=== PATIENT | male | born 1960 | race Caucasian/White ===

== ENCOUNTER → 2016-12-06 | Outpatient (CLI) | payer BC ==
[~2016-12-06] MED LIST: ALBU1AER9 INH; ASPI81TA28 PO; GEMF600T3 PO; HMLI SC; IBUP-103 PO; INSDGI SC; INSDGIPEN SC; INSPMPHMLG SC; LISI5TAB PO; LISI5TAB3 PO; MONT1TAB3 PO; SNG10 PO; VNTHFA/IN INH
[2016-12-06 09:55] LABS: BLOOD UREA NITROGEN 14 mg/dl (7-18); BUN/CREATININE RATIO 13.8 (10-20); CALCIUM 8.6 mg/dl (8.5-10.1); CARBON DIOXIDE 25 mmol/L (21-32); CHLORIDE 105 mmol/L (98-107); CHOLESTEROL 152 mg/dl (0-200); GLUCOSE 165 mg/dl (70-99); POTASSIUM 3.8 mmol/L (3.5-5.1); SODIUM 140 mmol/L (136-145); TRIGLYCERIDES 349 mg/dl (0-150); VERY LOW DENSITY LIPOPROT CALC 70 mg/dl
[2016-12-06 09:56] LABS: ESTIMATED AVERAGE GLUCOSE 189 mg/dl; HA1C FLAG Normal (Normal)
[2016-12-06 10:05] LABS: CHOLESTEROL/HDL RATIO 5.4; HDL CHOLESTEROL 28 mg/dl; LDL CHOLESTEROL CALCULATED 54 mg/dl
[2016-12-06 12:04] LABS: URINE APPEARANCE CLEAR (CLEAR); URINE BILIRUBIN NEG (NEG); URINE COLOR YELLOW; URINE NITRITE NEG (NEG); URINE SPECIFIC GRAVITY 1.019 (1.000-1.030); UROBILINOGEN NEG (NEG)
[2016-12-06 12:13] LABS: MANUAL MICROSCOPIC REQUIRED? NO; REVIEW REQ? NO
== END | disposition home or self-care (01) ==
LOC: C.LAB 08:03
PROVIDERS: ATTEND Internal Medicine Pulmonary Disease
DX: Z00.00 Encounter for general adult medical examination without abnormal findings (principal); E11.9 Type 2 diabetes mellitus without complications; E78.5 Hyperlipidemia, unspecified; I10 Essential (primary) hypertension

== ENCOUNTER 2016-12-08 07:56 | Emergency (ER) | payer BC ==
[~2016-12-08] VITALS: Ht 182.9 cm; Wt 131.2 kg
[~2016-12-08 07:56] MED LIST changes: -INSDGIPEN SC; -INSPMPHMLG SC; -LISI5TAB PO; -MONT1TAB3 PO; -VNTHFA/IN INH
[2016-12-08 08:00] VITALS: Ht 182.9 cm; Wt 131.2 kg
[2016-12-08 08:10] VITALS: O2SAT 96
[2016-12-08] MEDS ORDERED: ONDANSETRON INJ 2 MG/ML 2 ML VIAL IV PRN (08:30)
--- NOTE | 2016-12-08 08:47 | EMERGENCY ROOM VISIT NOTE ---
History Report prepared by Karlie: Liliana Garcia Under the Supervision of: Dr. Yvon Pisano M.D. First contact with patient: 08:15 Chief Complaint: DIZZY Stated Complaint: DIZZY Nursing Triage Summary: Pt presents with c/o dizziness, generalized weakness and dry heeves. Pt belching while in triage. Reports pain 1/10 in upper chest and left shoulder "bad I have a bad left shoulder." Sx began about 0500 when pt woke to go to the bathroom "I felt unstable to walk and lightheaded." History of Present Illness The patient is a 56 year old male who presents to the Emergency Room with complaints of persistent dizziness that began around 0500 this morning. He currently rates his discomfort as a 1/10 in severity. The patient states that when he woke this morning he went to go to the bathroom and states that he felt unstable on his feet and dizzy. He additionally associates nausea, dry heaves, and increased belching. The patient states that his symptoms have been worsened with lying flat. He states that he notes chest pain secondary to his dry heaves. The patient's notes that the patient was diaphoretic this morning. He states that he typically has a normal heart rate. The patient states that he took Advil this morning for a sore shoulder. He states that he had an appointment with orthopedics today regarding his shoulder. The patient notes a history of diabetes and states that he previously did not follow closely with testing his levels. He states that after a bout of pancreatitis, he has now been checking his blood glucose levels more frequently. The patient states that he takes 70 of his insulin at night and 40 of HemoLog with each meal. He states that his blood glucose level was 190 mg/dL this morning. The patient denies any sick contacts or eating any abnormal foods. Source of History: patient Onset: 0500 this morning Position: other (global) Symptom Intensity: 1/10 Quality: other (dizziness) Timing: other (persistent) Modifying Factors (Worsening): other (lying flat) Associated Symptoms: + nausea Note: Associated Symptoms: left chest pain, dry heaves, increased belching Review of Systems All systems have been listed, reviewed, and are negative other than those previously mentioned. Please see Additional Medical History Sheet. Past Medical & Surgical Medical Problems: (1) Diabetes Surgical Problems: (1) S/P cholecystectomy Family History Diabetes mellitus Seizures Social History Smoking Status: Never Smoker Smokeless Tobacco Use: No Alcohol Use: occasionally Marital Status: Housing Status: lives with family Occupation Status: employed Current/Historical Medications Scheduled Aspirin (Aspirin Ec), 81 MG PO DAILY Gemfibrozil (Lopid), 600 MG PO BID Insulin Glargine (Lantus Solostar), 70 UNITS SC QPM Insulin Human Lispro (Humalog), 40 UNITS SC DAILY Lisinopril (Prinivil), 5 MG PO DAILY Montelukast Sodium (Singulair), 10 MG PO DAILY Scheduled PRN Albuterol Hfa (Ventolin Hfa), 2-4 PUFFS INH Q6H PRN for Shortness of Breath Ibuprofen Tab (Advil), 200-600 MG PO Q4H PRN for Pain or Fever Allergies Coded Allergies: Molds & Smuts (Verified Allergy, Unknown, ALLERGY SYMPTOMS, 12/08/16) Physical Exam Vital Signs Date Time Temp Pulse Resp B/P Pulse Ox O2 Delivery O2 Flow Rate FiO2 12/08/16 12:30 36.4 59 20 169/92 97 12/08/16 12:26 169/92 97 Room Air 12/08/16 12:23 59 20 97 12/08/16 12:18 57 31 99 12/08/16 12:13 59 23 100 12/08/16 12:11 57 12/08/16 12:08 60 15 99 12/08/16 12:03 58 18 98 12/08/16 11:58 56 16 152/100 99 12/08/16 11:53 58 14 99 12/08/16 11:51 156/82 12/08/16 11:50 149/91 12/08/16 11:49 61 24 164/85 100 Room Air 63 149/91 62 156/82 12/08/16 11:49 164/85 12/08/16 11:48 59 16 92 12/08/16 11:43 56 15 99 12/08/16 11:40 138/90 12/08/16 11:38 59 19 99 12/08/16 11:33 55 22 100 12/08/16 11:28 55 16 138/90 100 12/08/16 11:23 63 13 100 12/08/16 11:18 60 12 96 12/08/16 11:13 57 18 94 2/10/17 11:08 53 13 97 12/08/16 11:03 63 25 97 12/08/16 10:58 141/87 97 Room Air 12/08/16 10:38 59 17 97 12/08/16 10:33 61 20 98 12/08/16 10:28 131/69 12/08/16 09:33 53 16 95 12/08/16 09:28 122/60 12/08/16 09:26 51 19 96 12/08/16 08:58 134/72 12/08/16 08:56 54 18 12/08/16 08:44 54 16 122/87 96 Room Air 12/08/16 08:43 122/87 12/08/16 08:26 52 11 98 12/08/16 08:23 144/88 12/08/16 08:17 79 12/08/16 08:10 96 Room Air 12/08/16 08:00 36.4 52 18 177/95 97 Room Air Physical Exam GENERAL: Patient awake, alert, oriented x 3. Patient follows commands. Patient is pale and diaphoretic. Patient is adequately hydrated and well- nourished. SKIN: No erythema, pallor, cyanosis or rash HEENT: Normal head, pupils equal, reactive to light and accommodation. Neck: Without adenopathy, no neck vein distention. LUNGS: Clear to auscultation. No wheezes, no rales, no rhonchi. HEART: Slow rate, no murmur. ABDOMEN: Obese. No masses, no rebound, no hepatomegaly or splenomegaly. EXTREMITIES: No signs of trauma. No pedal or pretibial edema. No calf or thigh tenderness. NEUROLOGIC: Cranial nerves II-XII within normal limits. No gross motor sensory function deficits. Medical Decision & Procedures ER Provider Diagnostic Interpretation: X ray results are stated below per my interpretation and the radiologist's interpretation. CHEST ONE VIEW PORTABLE CLINICAL HISTORY: Nausea, dizziness. COMPARISON STUDY: 02/17/2015 FINDINGS: The heart is borderline enlarged. There is no failure. There is no lobar consolidation. There are no pleural effusions. Soft tissue prominence of the right paratracheal stripe, is felt to be secondary to slight rotation, the AP technique, and the patient's large body habitus.[ IMPRESSION: AP portable study. No evidence of acute parenchymal consolidation. No evidence of failure. Electronically signed by: Baldev Salcedo M.D. 12/08/2016 8:56 AM Dictated Date/Time: 12/08/2016 8:55 AM Laboratory Results 12/08/16 09:09 Red Blood Count 4.48, Mean Corpuscular Volume 80.4, Mean Corpuscular Hemoglobin 28.6, Mean Corpuscular Hemoglobin Concent 35.6, Mean Platelet Volume 9.4, Neutrophils (%) (Auto) 73.4, Lymphocytes (%) (Auto) 20.5, Monocytes (%) (Auto) 4.6, Eosinophils (%) (Auto) 1.1, Basophils (%) (Auto) 0.2, Neutrophils # (Auto) 3.37, Lymphocytes # (Auto) 0.94, Monocytes # (Auto) 0.21, Eosinophils # (Auto) 0.05, Basophils # (Auto) 0.01 12/08/16 08:45 Test 12/08/16 08:45 12/08/16 09:09 12/08/16 10:10 Prothrombin Time 10.9 SECONDS (9.0-12.0) Prothromb Time International Ratio 1.0 (0.9-1.1) Activated Partial Thromboplast Time 23.3 SECONDS (21.0-31.0) Partial Thromboplastin Ratio 0.9 Anion Gap 10.0 mmol/L (3-11) Est Creatinine Clear Calc Drug Dose 102.6 ml/min Estimated GFR () 85.3 Estimated GFR (Non- 73.6 BUN/Creatinine Ratio 13.9 (10-20) Calcium Level 8.1 mg/dl (8.5-10.1) Total Bilirubin 0.5 mg/dl (0.2-1) Aspartate Amino Transf (AST/SGOT) 30 U/L (15-37) Alanine Aminotransferase (ALT/SGPT) 45 U/L (12-78) Alkaline Phosphatase 75 U/L (45-117) Total Creatine Kinase 178 U/L (39-308) Creatine Kinase MB 2.6 ng/ml (0.5-3.6) Creatine Kinase MB Ratio 1.5 (0-3.0) Troponin I < 0.015 ng/ml (0-0.045) Total Protein 6.9 gm/dl (6.4-8.2) Albumin 3.6 gm/dl (3.4-5.0) Globulin 3.3 gm/dl (2.5-4.0) Albumin/Globulin Ratio 1.1 (0.9-2) Lipase 138 U/L (73-393) White Blood Count 4.59 K/uL (4.8-10.8) Red Blood Count 4.48 M/uL (4.7-6.1) Hemoglobin 12.8 g/dL (14.0-18.0) Hematocrit 36.0 % (42-52) Mean Corpuscular Volume 80.4 fL (80-100) Mean Corpuscular Hemoglobin 28.6 pg (25-34) Mean Corpuscular Hemoglobin Concent 35.6 g/dl (32-36) Platelet Count 116 K/uL (130-400) Mean Platelet Volume 9.4 fL (7.4-10.4) Neutrophils (%) (Auto) 73.4 % Lymphocytes (%) (Auto) 20.5 % Monocytes (%) (Auto) 4.6 % Eosinophils (%) (Auto) 1.1 % Basophils (%) (Auto) 0.2 % Neutrophils # (Auto) 3.37 K/uL (1.4-6.5) Lymphocytes # (Auto) 0.94 K/uL (1.2-3.4) Monocytes # (Auto) 0.21 K/uL (0.11-0.59) Eosinophils # (Auto) 0.05 K/uL (0-0.5) Basophils # (Auto) 0.01 K/uL (0-0.2) RDW Standard Deviation 41.1 fL (36.4-46.3) RDW Coefficient of Variation 14.1 % (11.5-14.5) Immature Granulocyte % (Auto) 0.2 % Immature Granulocyte # (Auto) 0.01 K/uL (0.00-0.02) Urine Color YELLOW Urine Appearance CLEAR (CLEAR) Urine pH 5.0 (4.5-7.5) Urine Specific [place] 1.035 (1.000-1.030) Urine Protein NEG (NEG) Urine Glucose (UA) 3+ (NEG) Urine Ketones 1+ (NEG) Urine Occult Blood NEG (NEG) Urine Nitrite NEG (NEG) Urine Bilirubin NEG (NEG) Urine Urobilinogen NEG (NEG) Urine Leukocyte Esterase NEG (NEG) Laboratory results as stated above per my review. Medications Administered Medications (Trade) Dose Ordered Sig/Jasmin Route Start Time Stop Time Status Last Admin Dose Admin Ondansetron HCl (Zofran Inj) 4 mg Q1HWA PRN IV 12/08/16 08:30 12/08/16 13:03 DC 12/08/16 08:42 4 MG ECG Indication: other (dizziness) Rate (beats per minute): 49 Rhythm: sinus bradycardia Findings: 1st degree AV block, T-wave inversion (lead 1, AVL, V5, V6) Comparison ECG Date: 09/22/13 Change: EKG Change: When compared to EKG done on 09/22/13, T wave inversions are new, rate is much slower, and GA interval is greater. ED Course 0816: Past medical records reviewed. The patient was evaluated in room B12B. A complete history and physical examination was performed. 0830: Ordered Zofran Inj 4 mg IV. 0942: I reevaluated the patient and he is resting comfortably. 1122: I reevaluated the patient and he is starting to feel better. He is starting to drink fluids at this time. I discussed the exam findings so far with him. 1225: I reevaluated the patient and he is doing well. I discussed all of the exam findings with him and I discussed the treatment plan. He verbalized complete understanding and agreement. He is ready to go home. Medical Decision Nurses notes reviewed. Medical history sheet reviewed. Differential diagnosis includes but is not limited to: sinus bradycardia, myocardial infraction, metabolic disorder, hyperglycemia. Multiple labs, EKG and imaging were obtained. Please see above. Patient's blood sugar is elevated. The patient has not yet taken his insulin today. Patient was able to take oral fluids. The patient felt significantly better and was felt safe to return home. I believe he has a viral cause for his symptoms. Impression Primary Impression: Bradycardia Additional Impressions: Viral illness Diabetes mellitus out of control Scribe Attestation The scribe's documentation has been prepared under my direction and personally reviewed by me in its entirety. I confirm that the note above accurately reflects all work, treatment, procedures, and medical decision making performed by me. Departure Information Dispostion Home / Self-Care Referrals Escobedo,José Antonio C. D.O. Pulmonary (PCP) Forms HOME CARE DOCUMENTATION FORM, IMPORTANT VISIT INFORMATION Patient Instructions My [employer] Additional Instructions REST Drink extra fluids. Follow-up with the family physician within the next 3-4 days. Return here sooner if your symptoms worsen. Problem Qualifiers
--- NOTE | 2016-12-08 08:57 | DIAGNOSTIC IMAGING REPORT ---
CHEST ONE VIEW PORTABLE CLINICAL HISTORY: Nausea, dizziness. COMPARISON STUDY: 02/17/2015 FINDINGS: The heart is borderline enlarged. There is no failure. There is no lobar consolidation. There are no pleural effusions. Soft tissue prominence of the right paratracheal stripe, is felt to be secondary to slight rotation, the AP technique, and the patient's large body habitus.[ IMPRESSION: AP portable study. No evidence of acute parenchymal consolidation. No evidence of failure. Electronically signed by: Baldev Salcedo M.D. 12/08/2016 8:56 AM Dictated Date/Time: 12/08/2016 8:55 AM
[2016-12-08 09:08] LABS: PARTIAL THROMBOPLASTIN RATIO 0.9; PROTHROMBIN TIME (PATIENT) 10.9 SECONDS (9.0-12.0)
[2016-12-08 09:09] LABS: BUN/CREATININE RATIO 13.9 (10-20); CALCIUM 8.1 mg/dl (8.5-10.1); CREATININE 1.1 mg/dl (0.60-1.40); POTASSIUM 3.7 mmol/L (3.5-5.1)
[2016-12-08 09:13] LABS: ALB/GLOB RATIO 1.1 (0.9-2); CKMB/CK RATIO 1.5 (0-3.0)
[2016-12-08 09:17] LABS: BASO % 0.2 %; BASO ABS # 0.01 K/uL (0-0.2); COMPLETE YES; EOS % 1.1 %; IG% 0.2 %; LYMPH % 20.5 %; LYMPH ABS # 0.94 K/uL (1.2-3.4); MEAN CELL VOLUME 80.4 fL (80-100); MEAN CORPUSCULAR HEMOGLOBIN 28.6 pg (25-34); MEAN CORPUSCULAR HGB CONC 35.6 g/dl (32-36); MEAN PLATELET VOLUME 9.4 fL (7.4-10.4); MONO % 4.6 %; NEUT % 73.4 %; PLATELET COUNT 116 K/uL (130-400); RED BLOOD COUNT 4.48 M/uL (4.7-6.1); WHITE BLOOD COUNT 4.59 K/uL (4.8-10.8)
[2016-12-08] MEDS ORDERED: INSPMPHMLG SC (09:23)
[2016-12-08] MEDS ORDERED: INSDGIPEN SC (09:23)
[2016-12-08] MEDS ORDERED: MONT1TAB3 PO (09:23)
[2016-12-08] MEDS ORDERED: LISI5TAB PO (09:23)
[2016-12-08] MEDS ORDERED: VNTHFA/IN INH (09:23)
[2016-12-08 11:54] LABS: MANUAL MICROSCOPIC REQUIRED? NO; REVIEW REQ? NO; URINE COLOR YELLOW; ZZUR CULT IF INDIC CLEAN CATCH NO
[2016-12-08 11:55] LABS: URINE APPEARANCE CLEAR (CLEAR); URINE BILIRUBIN NEG (NEG); URINE NITRITE NEG (NEG); URINE SPECIFIC GRAVITY 1.035 (1.000-1.030); UROBILINOGEN NEG (NEG)
[2016-12-08 12:30] VITALS: BP 169/92; PULSE 59; TEMP 36.4; O2SAT 97
== END 2016-12-08 12:30 | disposition home or self-care (01) ==
LOC: C.EDB 07:57
DX: R00.1 Bradycardia, unspecified (principal); B34.9 Viral infection, unspecified; E11.65 Type 2 diabetes mellitus with hyperglycemia; Z79.899 Other long term (current) drug therapy; Z79.84 Long term (current) use of oral hypoglycemic drugs; Z79.82 Long term (current) use of aspirin; Z83.3 Family history of diabetes mellitus

== ENCOUNTER → 2017-04-23 | Outpatient (CLI) | payer BC ==
[~2017-04-23] MED LIST changes: -ALBU1AER9 INH; -HMLI SC; -INSDGI SC; +INSDGIPEN SC; +INSPMPHMLG SC; +LISI5TAB PO; -LISI5TAB3 PO; +MONT1TAB3 PO; -SNG10 PO; +VNTHFA/IN INH
[2017-04-23 17:34] LABS: RATIO 38.6 mcg/mg (0-30.0)
[2017-04-24 06:15] LABS: ESTIMATED AVERAGE GLUCOSE 126 mg/dl; HA1C FLAG Normal (Normal)
== END | disposition home or self-care (01) ==
LOC: C.LAB 15:48
PROVIDERS: ATTEND Nurse Practitioner Family
DX: E11.49 Type 2 diabetes mellitus with other diabetic neurological complication (principal)

== ENCOUNTER → 2017-07-26 | Outpatient (CLI) | payer BC ==
[2017-07-26 12:16] LABS: ESTIMATED AVERAGE GLUCOSE 128 mg/dl; HA1C FLAG Normal (Normal)
[2017-07-26 12:31] LABS: BLOOD UREA NITROGEN 17 mg/dl (7-18); BUN/CREATININE RATIO 15.8 (10-20); CALCIUM 9.6 mg/dl (8.5-10.1); CARBON DIOXIDE 25 mmol/L (21-32); CHLORIDE 105 mmol/L (98-107); GLUCOSE 130 mg/dl (70-99); SODIUM 139 mmol/L (136-145)
[2017-07-26 12:56] LABS: RATIO 27.3 mcg/mg (0-30.0)
== END | disposition home or self-care (01) ==
LOC: C.LAB 09:36
PROVIDERS: ATTEND Nurse Practitioner Family
DX: I10 Essential (primary) hypertension (principal); E78.5 Hyperlipidemia, unspecified; E11.49 Type 2 diabetes mellitus with other diabetic neurological complication; E66.9 Obesity, unspecified

== ENCOUNTER → 2017-10-08 | Outpatient (CLI) | payer BC ==
--- NOTE | 2017-10-08 13:31 | DIAGNOSTIC IMAGING REPORT ---
ABDOMEN FOR HERNIA CLINICAL HISTORY: Right groin pain. Evaluate for hernia. COMPARISON STUDY: CT of the abdomen and pelvis September 22, 2013. FINDINGS: Note is made of a reducible fat-containing right inguinal hernia. The defect measures approximately 1.2 cm in transverse dimension. IMPRESSION: Reducible fat-containing right inguinal hernia. Electronically signed by: Daron Radford M.D. 10/08/2017 1:29 PM Dictated Date/Time: 10/08/2017 1:28 PM
== END | disposition home or self-care (01) ==
LOC: C.ULTR 12:46
PROVIDERS: ATTEND Internal Medicine
DX: R10.31 Right lower quadrant pain (principal)

== ENCOUNTER → 2017-10-26 | Outpatient (CLI) | payer BC ==
[~2017-10-26] MED LIST changes: -GEMF600T3 PO; +GEMF600T5 PO
[2017-10-26 16:15] LABS: BASO % 0.2 %; BASO ABS # 0.01 K/uL (0-0.2); EOS ABS # 0.16 K/uL (0-0.5); HEMATOCRIT 39.5 % (42-52); HEMOGLOBIN 13.9 g/dL (14.0-18.0); IG# 0.01 K/uL (0.00-0.02); LYMPH % 21.3 %; LYMPH ABS # 1.15 K/uL (1.2-3.4); MEAN CELL VOLUME 80.9 fL (80-100); MEAN CORPUSCULAR HEMOGLOBIN 28.5 pg (25-34); MEAN CORPUSCULAR HGB CONC 35.2 g/dl (32-36); MEAN PLATELET VOLUME 9.6 fL (7.4-10.4); MONO % 6.3 %; MONO ABS # 0.34 K/uL (0.11-0.59); NEUT ABS # 3.74 K/uL (1.4-6.5); PLATELET COUNT 168 K/uL (130-400); RED CELL DISTRIBUTION WIDTH CV 14.9 % (11.5-14.5); RED CELL DISTRIBUTION WIDTH SD 43.1 fL (36.4-46.3); WHITE BLOOD COUNT 5.41 K/uL (4.8-10.8)
[2017-10-26 17:33] LABS: HEP C IGG 13 YRS+OLDER_RFLX NEG (NEG)
[2017-10-27 07:41] LABS: HEMOGLOBIN A1C 6.2 % (4.5-5.6)
== END | disposition home or self-care (01) ==
LOC: C.LAB 14:54
PROVIDERS: ATTEND Nurse Practitioner Family
DX: E11.49 Type 2 diabetes mellitus with other diabetic neurological complication (principal); J06.9 Acute upper respiratory infection, unspecified; Z11.59 Encounter for screening for other viral diseases

== ENCOUNTER → 2018-01-25 | Outpatient (CLI) | payer BC ==
[~2018-01-25] MED LIST changes: +GEMF600T3 PO; -GEMF600T5 PO
[2018-01-25 10:34] LABS: BLOOD UREA NITROGEN 19 mg/dl (7-18); CARBON DIOXIDE 26 mmol/L (21-32); CHOLESTEROL 139 mg/dl (0-200); CREATININE 1.21 mg/dl (0.60-1.40); GLUCOSE 182 mg/dl (70-99); SODIUM 135 mmol/L (136-145)
[2018-01-25 10:39] LABS: HEMOGLOBIN A1C 6.4 % (4.5-5.6)
[2018-01-25 10:44] LABS: LDL CHOLESTEROL CALCULATED 72 mg/dl
== END | disposition home or self-care (01) ==
LOC: C.LAB 08:50
PROVIDERS: ATTEND Nurse Practitioner Family
DX: E11.49 Type 2 diabetes mellitus with other diabetic neurological complication (principal)

== ENCOUNTER 2021-06-13 14:08 | Observation (INO) ==
[2021-06-13] MEDS ORDERED: ALBUT/IPRATROP 3MG/0.5MG NEB 3 ML VIAL NEB STA (15:21)
--- NOTE | 2021-06-13 15:30 | Emergency Department Note ---
Impression & Plan Community acquired pneumonia, Breathlessness, Chest pain ED Provider Note Provider: Kishan Bennett MD DATE OF SERVICE: 06/13/2021 CHIEF COMPLAINT: Short of breath, chest pain HISTORY OF PRESENT ILLNESS: Patient is a 61-year-old gentleman history of type 2 diabetes, GERD, asthma, hypertension, hypothyroid, and recent travel to [facility] presenting here today complaining of shortness of breath and cough over the past approximately 2 weeks. Was seen due to similar complaint in [place] several weeks ago. Given inhaler and steroid burst and doxycycline. States that he had some brief improvement by the time he got to [place] on the way home. States he did get some diarrhea from the doxycycline. Was doing fairly well in [place] but time he got home here and is having worsening shortness of breath. Today experience some significant [id number] chest pain also some hemoptysis. Has been coughing somewhat hard. Had some leg swelling predominantly in the left last night lites improved today. Given this discussed with his and they came here for evaluation. Did see the outpatient office and is on a steroid taper as well as completed azithromycin. Utilized some ibuprofen and nebulizer at home and chest pain has resolved and is very minimal now. Denies any abdominal pain or nausea or vomiting. Patient states he has been vaccinated for Covid and tested negative for Covid in [place] about 2 weeks ago. REVIEW OF SYSTEMS: A total of 10 review of systems was obtained and negative except as stated above in the HPI. PAST MEDICAL HISTORY: As noted above MEDICATIONS: Reviewed home medications SOCIAL HISTORY: , non-smoker PHYSICAL EXAM: GENERAL: alert and oriented in no acute distress on stretcher Head: normocephalic and atraumatic EYES: No injection, discharge or icterus. NECK: Trachea midline. ENT: Mucous membranes pink and moist. LUNGS: Airway patent. No retractions. Breath sounds clear HEART: Regular rate and rhythm. No chest wall tenderness ABDOMEN: Soft and non-tender, without guarding or rebound. SKIN: Acyanotic, warm, dry with a few scattered abrasions on the lower shins. EXTREMITIES: Without significant tenderness with trace bilateral pedal edema. NEUROLOGICAL: No focal deficits. No aphasia. No facial droop or slurred speech. Ambulatory. EK bpm sinus rhythm first-degree AV block. Left axis is noted with occasional PAC. No acute ST segment elevation is noted with some nonspecific lateral T wave changes noted in comparison to previous from December [id number] lateral T wave inversions are somewhat improved today. PACs today. EKG #2: 52 bpm sinus bradycardia with sinus arrhythmia first-degree AV block. No acute ST segment elevation or depression noted with some Q inversion in V6. QTC 412 CONTINUOUS CARDIAC MONITORING: was ordered and showed a heart rate of 50s to 80s bpm in normal sinus rhythm and sinus bradycardia Patient's laboratory studies and imaging reviewed. Differential includes Reactive airway disease, pneumonia, pneumothorax, COPD, CHF, infections, cardiac ischemia, pulmonary embolism, musculoskeletal, gastrointestinal, as well as other pathologies. IMPRESSION/MEDICAL DECISION MAKING: Patient presents with persistent shortness of breath now bit of worsening cough some left-sided chest discomfort and question of some leg swelling last night. Recent travel. Covid vaccinated however Covid test was sent; negative. CT of the chest to exclude intrathoracic pathology is PE or pneumonia sent. Given DuoNeb here. EKG obtained and not significantly different than previous. Troponin was sent to help exclude ACS however. Patient not hypoxic here. Denies abdominal symptoms of benign abdomen. Has been on several doses of antibiotics including azithromycin/doxycycline as well as steroids. Just recently stopped lisinopril. Given some leg swelling ultrasound the leg will be obtained. Per radiology venous Dopplers negative for DVT. Chest x-ray questions a left perihilar consolidation and a CT scan of the chest was completed again to exclude occult pneumonia or PE. Negative for PE. Evidence of a left upper lobe consolidation concerning for pneumonia is noted. Patient is a leukocytosis of 13.8 today. Troponin is detectable and abnormal. Patient had some recurrence of his chest discomfort given some fentanyl. Question if the chest discomfort is more related to the consolidative findings on the CT with a lower suspicion for acute ACS. Discussed with patient findings and discussed with him cannot positively exclude underlying possible nodule or mass. Patient recently completed course of doxycycline and azithromycin. Given a dose of Rocephin here for more typical pneumonia coverage. Given his comorbidities and the fact has been on azithromycin and doxycycline and has a consolidation with a fair amount of pain, feel that further care at the hospital at this time would be warranted. Discussed with him and his . Repeat EKG was ordered and given a small amount of Toradol and Dilaudid to help with some left-sided chest discomfort. EKG without acute ischemic changes compared to previous. Hospitalist contacted. DIAGNOSIS: left upper lobe pneumonia, shortness of breath, chest pain DISPOSITION: Hospitalist will evaluate Patient was agreeable with this plan. Past Med/Surg History Medical History (Updated 06/13/21 @ 17:55 by Kishan Bennett M.D.) Asthma Asthmatic bronchitis Claustrophobia Diabetes Diabetic peripheral neuropathy associated with type 2 diabetes mellitus Dysesthesia Dyslipidemia GERD (gastroesophageal reflux disease) UNDER CONTROL History of right inguinal hernia Hypertension Hypothyroidism Not immune to hepatitis B virus Obesity, morbid, BMI 40.0-49.9 Pancreatitis Sleep apnea CPAP HS Type 2 diabetes mellitus, with long-term current use of insulin Vitamin D insufficiency Surgical History History of colonoscopy History of esophagogastroduodenoscopy (EGD) History of tonsillectomy Numbness and tingling in right hand HX-POST OP WITH HERNIA SURGERY 04/2018 AT [facility] [place] DIAGNOSED A RESULT PRESSURE ON NERVE TO HAND INTRAOP PER PT-FULL SENSATION HAS RETURNED S/P hernia repair S/P tooth extraction Status post laparoscopic cholecystectomy Family History Grandmother Cardiac disorder Mother Stroke Father Diabetes Cancer Social History Smoking Status: Never smoker Second Hand Exposure: No; Hx Alcohol Use: Yes Alcohol type: beer, wine and hard liquor Hx Substance Use: No Preferred Language: Lebanese Communication Ability: Effective Visual Impairment: No Limitations Hearing Ability: Normal Acid Washer Operator Required: No Beliefs That Will Affect Care: None marital status: Current Living Situation: Spouse current occupational status: employed Feels Safe at Home: Yes Assistive Devices: Glasses Allergies Allergies Allergy/AdvReac Type Severity Reaction Status Date / Time mold Allergy Unknown ALLERGY Verified 06/13/21 18:20 SYMPTOMS No Known Drug Allergies Allergy Verified 06/13/21 18:20 Home Meds Home Medications Medication Instructions Recorded Confirmed aspirin 81 mg tablet,delayed 81 mg PO QAM 02/22/19 06/13/21 release famotidine 40 mg tablet 40 mg PO DAILY 06/13/21 06/13/21 magnesium oxide 500 mg tablet 500 mg PO DAILY 06/13/21 06/13/21 Previous Rx's Medication Instructions Recorded insulin lispro 100 unit/mL See Rx Instructions SUBCUT TIDM 07/30/20 subcutaneous pen (Humalog KwikPen #135 ml (U-100) Insulin) montelukast 10 mg tablet 10 mg PO QAM #90 tab 11/04/20 (Singulair) albuterol sulfate 90 mcg/actuation 2 puff INHALATION .COMPLEX #18 g 12/13/20 aerosol inhaler insulin glargine U-300 conc 300 95 unit SUBCUT QAM #31.5 ml 12/24/20 unit/mL (1.5 mL) subcutaneous pen (Toujeo SoloStar U-300 Insulin) cholecalciferol (vitamin D3) 125 125 mcg PO DAILY #30 cap 04/28/21 mcg (5,000 unit) capsule losartan 50 mg tablet 50 mg PO DAILY #30 tab 04/28/21 gemfibrozil 600 mg tablet 600 mg PO BID #180 tab 06/06/21 albuterol sulfate 2.5 mg INHALATION QID PRN #75 ml 06/09/21 methylprednisolone 4 mg tablets in See Rx Instructions .ROUTE 06/09/21 a dose pack (Medrol (Dale)) .COMPLEX #21 ea Results & Data (ED) Vital Signs Vital Signs - 24 hr 06/13/21 14:08 06/13/21 14:13 06/13/21 14:57 Temperature 36.5 C Temperature Source Temporal Artery Scan Pulse Rate 71 67 Pulse Rate [Apical] Pulse Rate from SpO2 Sensor 67 Pulse Rhythm [Apical] Pulse Strength [Apical] Respiratory Rate 25 H 20 Respiratory Effort / Characteristics Non-Labored Spontaneous Respiratory Depth Normal Respiratory Pattern Regular Blood Pressure 181/99 H Blood Pressure [Right Arm] Blood Pressure Mean 126 Blood Pressure Mean [Right Arm] Blood Pressure Position Sitting Blood Pressure Position [Right Arm] Pulse Oximetry 96 94 98 Oxygen Delivery Method Room Air Room Air Sepsis Recent Fever Within 48 Hours No Sepsis New/Unexplained Change in Mental Status N/A Sepsis Action Taken by Nursing No Action Required 06/13/21 15:00 06/13/21 15:10 06/13/21 15:20 Temperature Temperature Source Pulse Rate 67 72 62 Pulse Rate [Apical] Pulse Rate from SpO2 Sensor 66 69 68 Pulse Rhythm [Apical] Pulse Strength [Apical] Respiratory Rate 18 15 19 Respiratory Effort / Characteristics Respiratory Depth Respiratory Pattern Blood Pressure Blood Pressure [Right Arm] Blood Pressure Mean Blood Pressure Mean [Right Arm] Blood Pressure Position Blood Pressure Position [Right Arm] Pulse Oximetry 97 96 98 Oxygen Delivery Method Sepsis Recent Fever Within 48 Hours Sepsis New/Unexplained Change in Mental Status Sepsis Action Taken by Nursing 06/13/21 15:30 06/13/21 15:40 06/13/21 15:49 Temperature Temperature Source Pulse Rate 54 L 72 Pulse Rate [Apical] 62 Pulse Rate from SpO2 Sensor 67 Pulse Rhythm [Apical] Pulse Strength [Apical] Respiratory Rate 19 14 18 Respiratory Effort / Characteristics Non-Labored Spontaneous Respiratory Depth Respiratory Pattern Blood Pressure Blood Pressure [Right Arm] Blood Pressure Mean Blood Pressure Mean [Right Arm] Blood Pressure Position Blood Pressure Position [Right Arm] Pulse Oximetry 97 97 Oxygen Delivery Method Room Air Sepsis Recent Fever Within 48 Hours Sepsis New/Unexplained Change in Mental Status Sepsis Action Taken by Nursing 06/13/21 15:50 06/13/21 16:00 06/13/21 16:10 Temperature Temperature Source Pulse Rate 66 72 77 Pulse Rate [Apical] Pulse Rate from SpO2 Sensor 72 68 Pulse Rhythm [Apical] Pulse Strength [Apical] Respiratory Rate 12 13 12 Respiratory Effort / Characteristics Respiratory Depth Respiratory Pattern Blood Pressure Blood Pressure [Right Arm] Blood Pressure Mean Blood Pressure Mean [Right Arm] Blood Pressure Position Blood Pressure Position [Right Arm] Pulse Oximetry 97 96 Oxygen Delivery Method Sepsis Recent Fever Within 48 Hours Sepsis New/Unexplained Change in Mental Status Sepsis Action Taken by Nursing 06/13/21 16:52 06/13/21 18:20 Temperature Temperature Source Pulse Rate 69 Pulse Rate [Apical] 71 Pulse Rate from SpO2 Sensor 63 68 Pulse Rhythm [Apical] Regular Pulse Strength [Apical] Normal Respiratory Rate 21 Respiratory Effort / Characteristics Non-Labored Respiratory Depth Normal Respiratory Pattern Blood Pressure 176/92 H 147/90 H Blood Pressure [Right Arm] 147/90 H Blood Pressure Mean 120 109 Blood Pressure Mean [Right Arm] 109 Blood Pressure Position Blood Pressure Position [Right Arm] Sitting Pulse Oximetry 99 97 Oxygen Delivery Method Room Air Sepsis Recent Fever Within 48 Hours Sepsis New/Unexplained Change in Mental Status Sepsis Action Taken by Nursing Laboratory Data Result diagrams: 06/13/21 15:48 06/13/21 15:48 Lab Results 06/13/21 06/13/21 06/13/21 Range/Units 15:41 15:41 15:48 WBC 13.86 H (4.8-10.8) K/uL RBC 4.80 (4.7-6.1) M/uL Hgb 13.7 L (14.0-18.0) g/dL Hct 40.3 L (42-52) % MCV 84.0 (80-100) fL MCH 28.5 (25-34) pg MCHC 34.0 (32-36) g/dL RDW Std Deviation 42.5 (36.4-46.3) fL RDW Coeff of James 13.8 (11.5-14.5) % Plt Count 204 (130-400) K/uL MPV 10.0 (7.4-10.4) fL Immature Gran % (Auto) 0.3 % Neut % (Auto) 85.2 % Lymph % (Auto) 7.1 % [place] % (Auto) 6.9 % Eos % (Auto) 0.4 % Baso % (Auto) 0.1 % Neut # (Auto) 11.82 H (1.4-6.5) K/uL Lymph # (Auto) 0.99 L (1.2-3.4) K/uL [place] # (Auto) 0.95 H (0.11-0.59) K/uL Eos # (Auto) 0.05 (0-0.5) K/uL Baso # (Auto) 0.01 (0-0.2) K/uL Immature Gran # (Auto) 0.04 H (0.00-0.02) K/uL PT (9.0-12.0) Seconds INR (0.9-1.1) Sodium (136-145) mmol/L Potassium (3.5-5.1) mmol/L Chloride (98-107) mmol/L Carbon Dioxide (21-32) mmol/L Anion Gap (3-11) BUN (7-18) mg/dl Creatinine (0.6-1.4) mg/dl Est Cr Clr Drug Dosing ml/min Est GFR ( Amer) ml/min Est GFR (Non-Af Amer) ml/min BUN/Creatinine Ratio (10-20) Glucose (70-99) mg/dl Calcium (8.5-10.1) mg/dl Magnesium (1.8-2.4) mg/dl Total Bilirubin (0.2-1) mg/dl AST (15-37) U/L ALT (12-78) U/L Alkaline Phosphatase (45-117) U/L Troponin I (0-0.045) ng/ml Total Protein (6.4-8.2) gm/dl Albumin (3.4-5.0) gm/dl Globulin (2.5-4.0) gm/dl Albumin/Globulin Ratio (0.9-2) Urine Color Urine Appearance (Clear) Urine pH (4.5-7.5) Ur Specific [place] (1.000-1.030) Urine Protein (Negative) Urine Glucose (UA) (Negative) Urine Ketones (Negative) Urine Blood (Negative) Urine Nitrite (Negative) Urine Bilirubin (Negative) Urine Urobilinogen (Negative) Ur Leukocyte Esterase (Negative) Urine WBC (Auto) (0-5) /hpf Urine RBC (Auto) (0-4) /hpf U Hyaline Cast (Auto) (0-5) /lpf U Epithel Cells (Auto) (0-5) /lpf Urine Bacteria (Auto) (Negative) Ur Renal Epithelial Cell Urine Mucus (None Prsent) COVID-19 Eval Order Covid19 at [facility] SARS-CoV-2 (PCR) NEGATIVE (Negative) 06/13/21 06/13/21 06/13/21 Range/Units 15:48 15:48 17:16 WBC (4.8-10.8) K/uL RBC (4.7-6.1) M/uL Hgb (14.0-18.0) g/dL Hct (42-52) % MCV (80-100) fL MCH (25-34) pg MCHC (32-36) g/dL RDW Std Deviation (36.4-46.3) fL RDW Coeff of James (11.5-14.5) % Plt Count (130-400) K/uL MPV (7.4-10.4) fL Immature Gran % (Auto) % Neut % (Auto) % Lymph % (Auto) % [place] % (Auto) % Eos % (Auto) % Baso % (Auto) % Neut # (Auto) (1.4-6.5) K/uL Lymph # (Auto) (1.2-3.4) K/uL [place] # (Auto) (0.11-0.59) K/uL Eos # (Auto) (0-0.5) K/uL Baso # (Auto) (0-0.2) K/uL Immature Gran # (Auto) (0.00-0.02) K/uL PT 10.3 (9.0-12.0) Seconds INR 1.0 (0.9-1.1) Sodium 137 (136-145) mmol/L Potassium 3.7 (3.5-5.1) mmol/L Chloride 105 (98-107) mmol/L Carbon Dioxide 25 (21-32) mmol/L Anion Gap 7.0 (3-11) BUN 16 (7-18) mg/dl Creatinine 0.87 (0.6-1.4) mg/dl Est Cr Clr Drug Dosing 128.9 ml/min Est GFR ( Amer) 106.5 ml/min Est GFR (Non-Af Amer) 91.9 ml/min BUN/Creatinine Ratio 17.8 (10-20) Glucose 205 H (70-99) mg/dl Calcium 9.0 (8.5-10.1) mg/dl Magnesium 2.0 (1.8-2.4) mg/dl Total Bilirubin 0.7 (0.2-1) mg/dl AST 14 L (15-37) U/L ALT 51 (12-78) U/L Alkaline Phosphatase 82 (45-117) U/L Troponin I 0.027 (0-0.045) ng/ml Total Protein 6.9 (6.4-8.2) gm/dl Albumin 3.4 (3.4-5.0) gm/dl Globulin 3.5 (2.5-4.0) gm/dl Albumin/Globulin Ratio 1.0 (0.9-2) Urine Color Yellow Urine Appearance Clear (Clear) Urine pH 6.0 (4.5-7.5) Ur Specific [place] 1.040 H (1.000-1.030) Urine Protein 2+ H (Negative) Urine Glucose (UA) Trace H (Negative) Urine Ketones Trace H (Negative) Urine Blood Negative (Negative) Urine Nitrite Negative (Negative) Urine Bilirubin Negative (Negative) Urine Urobilinogen Negative (Negative) Ur Leukocyte Esterase Negative (Negative) Urine WBC (Auto) 1-5 (0-5) /hpf Urine RBC (Auto) 0-4 (0-4) /hpf U Hyaline Cast (Auto) 1-5 (0-5) /lpf U Epithel Cells (Auto) >30 H (0-5) /lpf Urine Bacteria (Auto) Negative (Negative) Ur Renal Epithelial Cell Not Reportable Urine Mucus Present A (None Prsent) COVID-19 Eval Order SARS-CoV-2 (PCR) (Negative) Administered Medications Discontinued Medications Albuterol (Albut/Ipratrop 3mg/0.5mg Neb 3 Ml Vial) 3 ml NEB NOW STA Stop: 06/13/21 15:22 Last Admin: 06/13/21 15:47 Dose: 3 ml Documented by: [id number] Fentanyl Citrate (Fentanyl Citrate 100 Mcg/2 Ml Vial) 50 mcg IV NOW STA Stop: 06/13/21 16:48 Last Admin: 06/13/21 16:52 Dose: 50 mcg Documented by: [id number] Hydromorphone HCl (Hydromorphone Inj 1 Mg/Ml Syringe) 0.5 mg IV NOW STA Stop: 06/13/21 18:09 Last Admin: 06/13/21 18:12 Dose: 0.5 mg Documented by: [id number] Ceftriaxone Sodium (Rocephin) 2,000 mg in 70 mls @ 140 mls/hr IV NOW STA Stop: 06/13/21 18:25 Last Infusion: 06/13/21 18:47 Dose: 140 mls/hr Documented by: [id number] Admin: 06/13/21 18:17 Dose: 140 mls/hr Documented by: [id number] Ioversol (Optiray 320 125ml) 120 ml IV ONCE ONE Stop: 06/13/21 17:02 Last Admin: 06/13/21 17:01 Dose: 120 ml Documented by: [id number] Ketorolac Tromethamine (Ketorolac Tromethamine 15 Mg/Ml Vial) 10 mg IV NOW ONE Stop: 06/13/21 18:04 Last Admin: 06/13/21 18:12 Dose: 10 mg Documented by: [id number] Morphine Sulfate (Morphine Sulfate 2 Mg/Ml Carp) 2 mg IV NOW STA Stop: 06/13/21 18:04 Last Admin: 06/13/21 18:20 Dose: Not Given Documented by: [id number] Imaging Data Radiologist's Impression: Chest CTA 06/13/21 15:08 CT ANGIOGRAM OF THE CHEST CLINICAL HISTORY: Atypical chest pain. Dyspnea. COMPARISON STUDY: Chest x-ray dated 06/13/2021. TECHNIQUE: Following the IV administration of 120 cc of Optiray 320, CT angiogram of the chest was performed from the upper abdomen to the thoracic inlet utilizing the pulmonary embolus protocol. Images are reviewed in the axial, sagittal, and coronal planes. 3-D MIPS images are created and assessed. IV contrast was administered without complication. A dose lowering technique was utilized adhering to the principles of ALARA. CT DOSE: 1017.40 mGy.cm FINDINGS: Thyroid: Imaged portions of the thyroid gland are normal in size and attenuation. Thoracic aorta: The thoracic aorta is normal in caliber and demonstrates standard 3-vessel arch anatomy. No dissection is seen. Pulmonary vasculature: The pulmonary trunk is dilated measuring 3.7 cm in diameter. This suggests pulmonary artery hypertension. There are no filling defects identified in main, lobar, or segmental pulmonary branches to suggest pulmonary embolus. Heart: The heart is mildly enlarged and without pericardial effusion. There are scattered coronary artery calcifications. Lungs and pleural spaces: There is dense airspace atelectasis/consolidation in the paramediastinal left upper lobe. Milder patchy groundglass changes seen throughout the remainder of the left upper lobe. The left lower lobe end right lung are clear. There is trace left pleural effusion. Minimal layering debris is noted in the trachea. Mediastinum: Prominent subcentimeter mediastinal lymph nodes are likely reactive. Caro: Clear. Axillae: There is no axillary lymphadenopathy. Upper abdomen: The liver is enlarged and steatotic. A tiny hiatal hernia is noted. Skeletal structures: Degenerative change and mild hyperkyphosis is noted in the thoracic spine. No lytic or blastic bony lesions are seen. IMPRESSION: 1. There is no evidence of pulmonary embolus in the main, lobar, or segmental pulmonary arteries. 2. There is dense paramediastinal consolidation/atelectasis in the left upper lobe with milder patchy groundglass consolidation throughout the remainder of the left upper lobe. The appearance favors pneumonia. Clinical correlation will be required and radiographic follow-up to resolution is recommended to exclude the less likely possibility of underlying pulmonary lesion. 3. Trace left pleural effusion. 4. Mild cardiomegaly. 5. The liver appears enlarged and steatotic. 6. Additional findings as above. ACT 112: Positive. There are findings on this exam that require communication between the performing entity and the patient following Patient Test Result Information Act ([place] Act 112) guidelines. Electronically signed by: Kaiden Denise M.D. 06/13/2021 5:35 PM Chest X-Ray 06/13/21 15:08 SINGLE VIEW CHEST CLINICAL HISTORY: Dyspnea FINDINGS: An AP, portable, upright chest radiograph is compared to study dated 02/22/2019. The heart is enlarged. There is no airspace consolidation typical for pneumonia or pleural effusion. A 4 cm nodular density is suggested in the left suprahilar region. Atelectasis is noted at the lung bases. No pneumothorax is seen. The bony thorax is grossly intact. Degenerative changes noted in the thoracic spine. IMPRESSION: 1. Cardiomegaly with no acute cardiopulmonary abnormality. 2. A 4 cm indeterminant nodular density is suggested in the left suprahilar region. Correlation with a chest CT is recommended to exclude underlying pulmonary lesion. ACT 112: Negative or not required by law. Electronically signed by: Kaiden Denise M.D. 06/13/2021 4:09 PM Venous Doppler Study 06/13/21 15:21 ULTRASOUND BILATERAL LOWER EXTREMITY VENOUS CLINICAL HISTORY: Leg swelling. Dyspnea. Recent travel. COMPARISON STUDY: No priors. TECHNIQUE: Real-time, grayscale, and color Doppler sonography of the deep veins of the right and left lower extremity was performed from the inguinal crease to the calf. Compression and augmentation were utilized. FINDINGS: There is no sonographic evidence of deep venous thrombosis identified in the right or left lower extremity. The common femoral, superficial femoral, and popliteal veins are patent and normally compressible bilaterally. The greater saphenous vein and the profunda femoris vein at the junction with the common femoral vein are clear in both legs. The visualized calf veins are patent bilaterally. IMPRESSION: There is no sonographic evidence of deep venous thrombosis identified in the right or left lower extremity. ACT 112: Negative or not required by law. Electronically signed by: Kaiden Denise M.D. 06/13/2021 4:43 PM Discharge Plan Visit Data Chief Complaint: Shortness of Breath/Dyspnea Stated Complaint: CHEST PAIN, ASTHMA ED Provider: Kishan Bennett Discharge Problem: Community acquired pneumonia, Breathlessness, Chest pain Patient Disposition: Being Evaluated by Hospitalist Forms Stand Alone Forms: [facility] Prescriptions Prescriptions: No Action insulin lispro [Humalog KwikPen Insulin] 100 unit/mL insulin pen See Rx Instructions SUBCUT TIDM Qty: 135 RF: 3 montelukast [Singulair] 10 mg tablet 10 mg PO QAM Qty: 90 RF: 3 albuterol sulfate 90 mcg/actuation HFA aerosol inhaler 2 puff inhalation .COMPLEX Qty: 18 RF: 3 Toujeo SoloStar U-300 Insulin 300 unit/mL (1.5 mL) insulin pen 95 unit SUBCUT QAM Qty: 31.5 RF: 3 gemfibrozil 600 mg tablet 600 mg PO BID Qty: 180 RF: 3 cholecalciferol (vitamin D3) 125 mcg (5,000 unit) capsule 125 mcg PO DAILY Qty: 30 RF: 0 losartan 50 mg tablet 50 mg PO DAILY Qty: 30 RF: 1 albuterol sulfate 2.5 mg /3 mL (0.083 %) solution for nebulization 2.5 mg inhalation QID PRN (Reason: shortness of breath or wheezing) Qty: 75 RF: 0 methylprednisolone [Medrol (Dale)] 4 mg tablets,dose pack See Rx Instructions .ROUTE .COMPLEX Qty: 21 RF: 0 aspirin 81 mg Tablet,Delayed Release (Dr/Ec) 81 mg PO QAM RF: 0 famotidine 40 mg tablet 40 mg PO DAILY RF: 0 magnesium oxide 500 mg Tablet 500 mg PO DAILY RF: 0 Referrals Referrals: Rakesh Lowery MD [Primary Care Provider] - Discharge Problem: Community acquired pneumonia Qualifiers: Laterality: left Lung location: upper lobe of lung Qualified Code(s): J18.9 - Pneumonia, unspecified organism Chest pain Qualifiers: Chest pain type: unspecified Qualified Code(s): R07.9 - Chest pain, unspecified
[2021-06-13 16:09] LABS: Basophils # (auto) 0.01 K/uL (0-0.2); Basophils % (auto) 0.1 %; Eosinophils # (auto) 0.05 K/uL (0-0.5); Eosinophils % (auto) 0.4 %; Hematocrit (blood only) 40.3 % (42-52); Hemoglobin 13.7 g/dL (14.0-18.0); Immature Granulocytes # (auto) 0.04 K/uL (0.00-0.02); Immature Granulocytes % (auto) 0.3 %; Lymphocytes # (auto) 0.99 K/uL (1.2-3.4); Lymphocytes % (auto) 7.1 %; Mean Corpuscular Hemoglobin 28.5 pg (25-34); Monocytes # (auto) 0.95 K/uL (0.11-0.59); Monocytes % (auto) 6.9 %; Neutrophils # (auto) 11.82 K/uL (1.4-6.5); Neutrophils % (auto) 85.2 %; Platelet Count 204 K/uL (130-400); RDW Coefficient of Variation 13.8 % (11.5-14.5); RDW Standard Deviation 42.5 fL (36.4-46.3); White Blood Count 13.86 K/uL (4.8-10.8)
--- NOTE | 2021-06-13 16:10 | XRay Report ---
SINGLE VIEW CHEST CLINICAL HISTORY: Dyspnea FINDINGS: An AP, portable, upright chest radiograph is compared to study dated 02/22/2019. The heart i s enlarged. There is no airspace consolidation typical for pneumonia or pleural effusion. A 4 cm nodu lar density is suggested in the left suprahilar region. Atelectasis is noted at the lung bases. No pn eumothorax is seen. The bony thorax is grossly intact. Degenerative changes noted in the thoracic spi ne. IMPRESSION: 1. Cardiomegaly with no acute cardiopulmonary abnormality. 2. A 4 cm indeterminant nodular density is suggested in the left suprahilar region. Correlation with a chest CT is recommended to exclude underlying pulmonary lesion. ACT 112: Negative or not required by law. Electronically signed by: Kaiden Denise M.D. 06/13/2021 4:09 PM
[2021-06-13 16:19] LABS: Prothrombin Time 10.3 Seconds (9.0-12.0)
[2021-06-13 16:30] LABS: Albumin Level 3.4 gm/dl (3.4-5.0); BUN Creatinine Ratio 17.8 (10-20); Creatinine Clr Calc Pharmacy 128.9 ml/min; Est GFR (African American) 106.5 ml/min; Est GFR (Non-African American) 91.9 ml/min; Potassium 3.7 mmol/L (3.5-5.1)
[2021-06-13 16:34] LABS: Bilirubin,Total 0.7 mg/dl (0.2-1); Globulin 3.5 gm/dl (2.5-4.0); Total Protein 6.9 gm/dl (6.4-8.2); Troponin I 0.027 ng/ml (0-0.045)
--- NOTE | 2021-06-13 16:44 | Ultrasound Report ---
ULTRASOUND BILATERAL LOWER EXTREMITY VENOUS CLINICAL HISTORY: Leg swelling. Dyspnea. Recent travel. COMPARISON STUDY: No priors. TECHNIQUE: Real-time, grayscale, and color Doppler sonography of the deep veins of the right and left lower extremity was performed from the inguinal crease to the calf. Compression and augmentation wer e utilized. FINDINGS: There is no sonographic evidence of deep venous thrombosis identified in the right or left lower extremity. The common femoral, superficial femoral, and popliteal veins are patent and normally compressible bilaterally. The greater saphenous vein and the profunda femoris vein at the junction w ith the common femoral vein are clear in both legs. The visualized calf veins are patent bilaterally. IMPRESSION: There is no sonographic evidence of deep venous thrombosis identified in the right or lef t lower extremity. ACT 112: Negative or not required by law. Electronically signed by: Kaiden Denise M.D. 06/13/2021 4:43 PM
[2021-06-13] MEDS ORDERED: fentaNYL citrate 100 MCG/2 ML VIAL IV STA (16:47)
[2021-06-13] MEDS ORDERED: OPTIRAY 320 125ml IV ONE (17:01)
--- NOTE | 2021-06-13 17:36 | CT Scan Report ---
CT ANGIOGRAM OF THE CHEST CLINICAL HISTORY: Atypical chest pain. Dyspnea. COMPARISON STUDY: Chest x-ray dated 06/13/2021. TECHNIQUE: Following the IV administration of 120 cc of Optiray 320, CT angiogram of the chest was pe rformed from the upper abdomen to the thoracic inlet utilizing the pulmonary embolus protocol. Images are reviewed in the axial, sagittal, and coronal planes. 3-D MIPS images are created and assessed. I V contrast was administered without complication. A dose lowering technique was utilized adhering to the principles of ALARA. CT DOSE: 1017.40 mGy.cm FINDINGS: Thyroid: Imaged portions of the thyroid gland are normal in size and attenuation. Thoracic aorta: The thoracic aorta is normal in caliber and demonstrates standard 3-vessel arch anato my. No dissection is seen. Pulmonary vasculature: The pulmonary trunk is dilated measuring 3.7 cm in diameter. This suggests pul monary artery hypertension. There are no filling defects identified in main, lobar, or segmental pulm onary branches to suggest pulmonary embolus. Heart: The heart is mildly enlarged and without pericardial effusion. There are scattered coronary ar dominick calcifications. Lungs and pleural spaces: There is dense airspace atelectasis/consolidation in the paramediastinal le ft upper lobe. Milder patchy groundglass changes seen throughout the remainder of the left upper lobe . The left lower lobe end right lung are clear. There is trace left pleural effusion. Minimal layerin g debris is noted in the trachea. Mediastinum: Prominent subcentimeter mediastinal lymph nodes are likely reactive. Caro: Clear. Axillae: There is no axillary lymphadenopathy. Upper abdomen: The liver is enlarged and steatotic. A tiny hiatal hernia is noted. Skeletal structures: Degenerative change and mild hyperkyphosis is noted in the thoracic spine. No ly tic or blastic bony lesions are seen. IMPRESSION: 1. There is no evidence of pulmonary embolus in the main, lobar, or segmental pulmonary arteries. 2. There is dense paramediastinal consolidation/atelectasis in the left upper lobe with milder patchy groundglass consolidation throughout the remainder of the left upper lobe. The appearance favors pne umonia. Clinical correlation will be required and radiographic follow-up to resolution is recommended to exclude the less likely possibility of underlying pulmonary lesion. 3. Trace left pleural effusion. 4. Mild cardiomegaly. 5. The liver appears enlarged and steatotic. 6. Additional findings as above. ACT 112: Positive. There are findings on this exam that require communication between the performing entity and the patient following Patient Test Result Information Act ([place] Act 112) guidelines. Electronically signed by: Kaiden Denise M.D. 06/13/2021 5:35 PM
[2021-06-13 17:41] LABS: Appearance Urine Clear (Clear); Bacteria Urine Automated Negative (Negative); Bilirubin Urine Negative (Negative); Blood Urine Negative (Negative); Color Urine Yellow; Epithelial Cell Urine Auto >30 /lpf (0-5); Glucose Urine UA Trace (Negative); Ketones Urine Trace (Negative); Leukocyte Esterase Urine Negative (Negative); Nitrite Urine Negative (Negative); Protein Urine 2+ (Negative); RBC Urine Automated 0-4 /hpf (0-4); Urobilinogen Urine Negative (Negative)
[2021-06-13 17:54] LABS: Mucus Urine Present (None Prsent)
[2021-06-13] MEDS ORDERED: cefTRIAXone SODIUM 2,000 MG/70 ML BAG IV STA (17:56)
[2021-06-13] MEDS ORDERED: KETOROLAC TROMETHAMINE 15 MG/ML VIAL IV ONE (18:03)
[2021-06-13] MEDS ORDERED: MoRPHine SULFATE 2 MG/ML CARP IV STA (18:03)
[2021-06-13] MEDS ORDERED: HYDROmorphone INJ 1 MG/ML SYRINGE IV STA (18:08)
--- NOTE | 2021-06-13 20:04 | History & Physical Report ---
Date of Service June 13, 2021 Assessment & Plan (1) Left upper lobe pneumonia: Plan: Left upper lobe consolidated pneumonia with satellite lesions/obstructive sleep apnea/asthma- Failure of outpatient treatment with doxycycline then azithromycin and steroids Possible postobstructive pneumonia due to location and appearance Zosyn 4.5 g IV every 8 hours Azithromycin 500 mg IV daily Duonebs every 4 hours while awake and every 2 hours when necessary. Guaifenesin extended release 40 mg p.o. twice daily Pulmicort Respules 0.5 mg inhaled twice daily Methylprednisolone 20 mg IV every 12 hours. Try to minimize dosing due to significant diabetes Continue Singulair 10 mg p.o. daily Consult pulmonology, for inpatient assessment and outpatient follow-up (2) Asthma: Plan: See above (3) Sleep apnea: Plan: See above Of note, patient has not been up-to-date with his so clean cleaning regimen, raising the possibility of a more significant pathogen (4) Type 2 diabetes mellitus, with long-term current use of insulin: (5) Hypertension: Plan: Continue losartan and aspirin (6) Dyslipidemia: Plan: Continue gemfibrozil (7) Diabetic peripheral neuropathy associated with type 2 diabetes mellitus: Plan: On no specific treatment (8) GERD (gastroesophageal reflux disease): Plan: Continue famotidine History of Present Illness Chief Complaint: The patient presents to the emergency department with complaint of shortness of breath and intermittently productive cough over the past 2 weeks Primary Care Provider: Rakesh Lowery MD The patient is a 61-year-old male with a past medical history including obstructive sleep apnea using CPAP at at bedtime, asthma, diabetes mellitus with long-term use of insulin, vitamin D sufficiency, morbid obesity with BMI 43.6, hypothyroidism, hypertension, dyslipidemia, diabetic peripheral neuropathy, GERD and right inguinal hernia. The patient reports that his symptoms developed before he began on a trip to [place] and [place], while he was there, his symptoms got worse. He has been on treatments successively with doxycycline, then a azithromycin and steroids. His symptoms are not improved, so he presents to the ED for assessment this evening. Of note, he does wear CPAP at nighttime, and has not kept up with his SoClean cleaning regimen at nighttime. Work-up in the emergency department included a CT scan which showed a left upper lobe consolidation with surrounding patchy groundglass opacities. Also noted was hepatomegaly and hepatic steatosis. Treatment by the emergency department consisted of a DuoNeb, fentanyl IV, ceftriaxone IV, morphine IV, Toradol IV and Dilaudid IV Allergies Allergy/AdvReac Type Severity Reaction Status Date / Time mold Allergy Unknown ALLERGY Verified 06/13/21 18:20 SYMPTOMS No Known Drug Allergies Allergy Verified 06/13/21 18:20 Home Medications Medication Instructions Recorded Confirmed Type aspirin 81 mg tablet,delayed 81 mg PO QAM 02/22/19 06/13/21 History release insulin lispro 100 unit/mL See Rx Instructions SUBCUT TIDM 07/30/20 06/13/21 Rx subcutaneous pen (Humalog KwikPen #135 ml (U-100) Insulin) montelukast 10 mg tablet 10 mg PO QAM #90 tab 11/04/20 06/13/21 Rx (Singulair) albuterol sulfate 90 mcg/actuation 2 puff INHALATION .COMPLEX #18 g 12/13/20 06/13/21 Rx aerosol inhaler insulin glargine U-300 conc 300 95 unit SUBCUT QAM #31.5 ml 12/24/20 06/13/21 Rx unit/mL (1.5 mL) subcutaneous pen (Toujeo SoloStar U-300 Insulin) cholecalciferol (vitamin D3) 125 125 mcg PO DAILY #30 cap 04/28/21 06/13/21 Rx mcg (5,000 unit) capsule losartan 50 mg tablet 50 mg PO DAILY #30 tab 04/28/21 06/13/21 Rx gemfibrozil 600 mg tablet 600 mg PO BID #180 tab 06/06/21 06/13/21 Rx albuterol sulfate 2.5 mg INHALATION QID PRN #75 ml 06/09/21 06/13/21 Rx methylprednisolone 4 mg tablets in See Rx Instructions .ROUTE 06/09/21 06/13/21 Rx a dose pack (Medrol (Dale)) .COMPLEX #21 ea famotidine 40 mg tablet 40 mg PO DAILY 06/13/21 06/13/21 History magnesium oxide 500 mg tablet 500 mg PO DAILY 06/13/21 06/13/21 History Past Med/Surg History Medical History (Updated 06/13/21 @ 19:58 by Memo Menchaca MD) Asthma Asthmatic bronchitis Claustrophobia Diabetes Diabetic peripheral neuropathy associated with type 2 diabetes mellitus Dysesthesia Dyslipidemia GERD (gastroesophageal reflux disease) UNDER CONTROL History of right inguinal hernia Hypertension Hypothyroidism Not immune to hepatitis B virus Obesity, morbid, BMI 40.0-49.9 Pancreatitis Sleep apnea CPAP HS Type 2 diabetes mellitus, with long-term current use of insulin Vitamin D insufficiency Surgical History History of colonoscopy History of esophagogastroduodenoscopy (EGD) History of tonsillectomy Numbness and tingling in right hand HX-[place] 04/[address] [facility] [place] RESULT PRESSURE ON NERVE TO HAND INTRAOP PER PT-FULL SENSATION HAS RETURNED S/P hernia repair S/P tooth extraction Status post laparoscopic cholecystectomy Family History Grandmother Cardiac disorder Mother Stroke Father Diabetes Cancer Social History Smoking Status: Never smoker Second Hand Exposure: No; Hx Alcohol Use: Yes Alcohol type: beer, wine and hard liquor Hx Substance Use: No Preferred Language: Faroese Communication Ability: Effective Visual Impairment: No Limitations Hearing Ability: Normal Process Project Engineer Required: No Beliefs That Will Affect Care: None marital status: Current Living Situation: Spouse current occupational status: employed Feels Safe at Home: Yes Assistive Devices: Glasses Review of Systems Review of Systems: The patient denies chest pain, palpitations, lower extremity swelling, sore throat, fevers, chills, sweats, nausea, vomiting, diarrhea , constipation, abdominal pain, pelvic pain, blood in urine or stool, dysuria, urinary frequency or urgency, lightheadedness, dizziness, headache, memory loss, loss of consciousness, rash, abnormal bruising or bleeding, imbalance, focal or generalized weakness, numbness or tingling in arms or legs, generalized arthralgias or myalgias, back or neck pain, or night sweats. The review of systems is otherwise negative other than for that already noted above, and at least 10 systems have been reviewed. Physical Exam Physical Exam: The patient is awake, alert and oriented 3, well developed and well nourished, normocephalic and atraumatic, lying in bed and in no acute distress. HEENT--PERRL, EOMI, mucous membranes and oropharynx normal. Neck--supple. No JVD. No bruits. Thyroid normal, trachea midline, no adenopathy. Heart--normal S1 and S2. No murmurs, rubs or gallops. Lungs--decreased breath sounds throughout. No respiratory distress, no accessory muscle use. Abdomen--normal bowel sounds and soft. Nontender. Nondistended. morbidly obese Extremities--no cyanosis or clubbing. Trace bilateral pretibial pitting edema Dermatologic--diffuse surface bruises and surface abrasions noted on bilateral shins Neurologic--cranial nerves II through XII grossly intact. Rheumatologic--normal range of motion. Psychiatric--normal affect. Results & Data Results & Data ([facility]) Vital Signs (Past 12 Hours) Vital Signs Temp Pulse Pulse Resp BP BP Pulse Ox 06/13/21 18:20 69 71 21 147/90 H 147/90 H 97 06/13/21 16:52 176/92 H 99 06/13/21 16:10 77 12 96 06/13/21 16:00 72 13 97 06/13/21 15:50 66 12 06/13/21 15:49 62 18 97 06/13/21 15:40 72 14 97 06/13/21 15:30 54 L 19 06/13/21 15:20 62 19 98 06/13/21 15:10 72 15 96 06/13/21 15:00 67 18 97 06/13/21 14:57 67 20 98 06/13/21 14:13 97.7 F 71 25 H 181/99 H 94 06/13/21 14:08 96 Laboratory Results Laboratory Results WBC 13.86 K/uL (4.8-10.8) H 06/13/21 15:48 RBC 4.80 M/uL (4.7-6.1) 06/13/21 15:48 Hgb 13.7 g/dL (14.0-18.0) L 06/13/21 15:48 Hct 40.3 % (42-52) L 06/13/21 15:48 MCV 84.0 fL (80-100) 06/13/21 15:48 MCH 28.5 pg (25-34) 06/13/21 15:48 MCHC 34.0 g/dL (32-36) 06/13/21 15:48 RDW Std Deviation 42.5 fL (36.4-46.3) 06/13/21 15:48 RDW Coeff of James 13.8 % (11.5-14.5) 06/13/21 15:48 Plt Count 204 K/uL (130-400) 06/13/21 15:48 MPV 10.0 fL (7.4-10.4) 06/13/21 15:48 Immature Gran % (Auto) 0.3 % 06/13/21 15:48 Neut % (Auto) 85.2 % 06/13/21 15:48 Lymph % (Auto) 7.1 % 06/13/21 15:48 [place] % (Auto) 6.9 % 06/13/21 15:48 Eos % (Auto) 0.4 % 06/13/21 15:48 Baso % (Auto) 0.1 % 06/13/21 15:48 Neut # (Auto) 11.82 K/uL (1.4-6.5) H 06/13/21 15:48 Lymph # (Auto) 0.99 K/uL (1.2-3.4) L 06/13/21 15:48 [place] # (Auto) 0.95 K/uL (0.11-0.59) H 06/13/21 15:48 Eos # (Auto) 0.05 K/uL (0-0.5) 06/13/21 15:48 Baso # (Auto) 0.01 K/uL (0-0.2) 06/13/21 15:48 Immature Gran # (Auto) 0.04 K/uL (0.00-0.02) H 06/13/21 15:48 PT 10.3 Seconds (9.0-12.0) 06/13/21 15:48 INR 1.0 (0.9-1.1) 06/13/21 15:48 Sodium 137 mmol/L (136-145) 06/13/21 15:48 Potassium 3.7 mmol/L (3.5-5.1) 06/13/21 15:48 Chloride 105 mmol/L (98-107) 06/13/21 15:48 Carbon Dioxide 25 mmol/L (21-32) 06/13/21 15:48 Anion Gap 7.0 (3-11) 06/13/21 15:48 BUN 16 mg/dl (7-18) 06/13/21 15:48 Creatinine 0.87 mg/dl (0.6-1.4) 06/13/21 15:48 Est Cr Clr Drug Dosing 128.9 ml/min 06/13/21 15:48 Est GFR ( Amer) 106.5 ml/min 06/13/21 15:48 Est GFR (Non-Af Amer) 91.9 ml/min 06/13/21 15:48 BUN/Creatinine Ratio 17.8 (10-20) 06/13/21 15:48 Glucose 205 mg/dl (70-99) H 06/13/21 15:48 Calcium 9.0 mg/dl (8.5-10.1) 06/13/21 15:48 Magnesium 2.0 mg/dl (1.8-2.4) 06/13/21 15:48 Total Bilirubin 0.7 mg/dl (0.2-1) 06/13/21 15:48 AST 14 U/L (15-37) L 06/13/21 15:48 ALT 51 U/L (12-78) 06/13/21 15:48 Alkaline Phosphatase 82 U/L (45-117) 06/13/21 15:48 Troponin I 0.027 ng/ml (0-0.045) 06/13/21 15:48 Total Protein 6.9 gm/dl (6.4-8.2) 06/13/21 15:48 Albumin 3.4 gm/dl (3.4-5.0) 06/13/21 15:48 Globulin 3.5 gm/dl (2.5-4.0) 06/13/21 15:48 Albumin/Globulin Ratio 1.0 (0.9-2) 06/13/21 15:48 Urine Color Yellow 06/13/21 17:16 Urine Appearance Clear (Clear) 06/13/21 17:16 Urine pH 6.0 (4.5-7.5) 06/13/21 17:16 Ur Specific [place] 1.040 (1.000-1.030) H 06/13/21 17:16 Urine Protein 2+ (Negative) H 06/13/21 17:16 Urine Glucose (UA) Trace (Negative) H 06/13/21 17:16 Urine Ketones Trace (Negative) H 06/13/21 17:16 Urine Blood Negative (Negative) 06/13/21 17:16 Urine Nitrite Negative (Negative) 06/13/21 17:16 Urine Bilirubin Negative (Negative) 06/13/21 17:16 Urine Urobilinogen Negative (Negative) 06/13/21 17:16 Ur Leukocyte Esterase Negative (Negative) 06/13/21 17:16 Urine WBC (Auto) 1-5 /hpf (0-5) 06/13/21 17:16 Urine RBC (Auto) 0-4 /hpf (0-4) 06/13/21 17:16 U Hyaline Cast (Auto) 1-5 /lpf (0-5) 06/13/21 17:16 U Epithel Cells (Auto) >30 /lpf (0-5) H 06/13/21 17:16 Urine Bacteria (Auto) Negative (Negative) 06/13/21 17:16 Ur Renal Epithelial Cell Not Reportable 06/13/21 17:16 Urine Mucus Present (None Prsent) A 06/13/21 17:16 COVID-19 Eval Order Covid19 at [facility] 06/13/21 15:41 SARS-CoV-2 (PCR) NEGATIVE (Negative) 06/13/21 15:41 Impressions Chest CTA 06/13/21 15:08 CT ANGIOGRAM OF THE CHEST CLINICAL HISTORY: Atypical chest pain. Dyspnea. COMPARISON STUDY: Chest x-ray dated 06/13/2021. TECHNIQUE: Following the IV administration of 120 cc of Optiray 320, CT angiogram of the chest was performed from the upper abdomen to the thoracic inlet utilizing the pulmonary embolus protocol. Images are reviewed in the axial, sagittal, and coronal planes. 3-D MIPS images are created and assessed. IV contrast was administered without complication. A dose lowering technique was utilized adhering to the principles of ALARA. CT DOSE: 1017.40 mGy.cm FINDINGS: Thyroid: Imaged portions of the thyroid gland are normal in size and attenuation. Thoracic aorta: The thoracic aorta is normal in caliber and demonstrates standard 3-vessel arch anatomy. No dissection is seen. Pulmonary vasculature: The pulmonary trunk is dilated measuring 3.7 cm in diameter. This suggests pulmonary artery hypertension. There are no filling defects identified in main, lobar, or segmental pulmonary branches to suggest pu lmonary embolus. Heart: The heart is mildly enlarged and without pericardial effusion. There are scattered coronary artery calcifications. Lungs and pleural spaces: There is dense airspace atelectasis/consolidation in the paramediastinal left upper lobe. Milder patchy groundglass changes seen throughout the remainder of the left upper lobe. The left lower lobe end right lung are clear. There is trace left pleural effusion. Minimal layering debris is noted in the trachea. Mediastinum: Prominent subcentimeter mediastinal lymph nodes are likely reactive. Caro: Clear. Axillae: There is no axillary lymphadenopathy. Upper abdomen: The liver is enlarged and steatotic. A tiny hiatal hernia is noted. Skeletal structures: Degenerative change and mild hyperkyphosis is noted in the thoracic spine. No lytic or blastic bony lesions are seen. IMPRESSION: 1. There is no evidence of pulmonary embolus in the main, lobar, or segmental pulmonary arteries. 2. There is dense paramediastinal consolidation/atelectasis in the left upper lobe with milder patchy groundglass consolidation throughout the remainder of the left upper lobe. The appearance favors pneumonia. Clinical correlation will be required and radiographic follow-up to resolution is recommended to exclude the less likely possibility of underlying pulmonary lesion. 3. Trace left pleural effusion. 4. Mild cardiomegaly. 5. The liver appears enlarged and steatotic. 6. Additional findings as above. ACT 112: Positive. There are findings on this exam that require communication between the performing entity and the patient following Patient Test Result Information Act ([place] Act 112) guidelines. Electronically signed by: Kaiden Denise M.D. 06/13/2021 5:35 PM Chest X-Ray 06/13/21 15:08 SINGLE VIEW CHEST CLINICAL HISTORY: Dyspnea FINDINGS: An AP, portable, upright chest radiograph is compared to study dated 02/22/2019. The heart is enlarged. There is no airspace consolidation typical for pneumonia or pleural effusion. A 4 cm nodular density is suggested in the left suprahilar region. Atelectasis is noted at the lung bases. No pneumothorax is seen. The bony thorax is grossly intact. Degenerative changes noted in the thoracic spine. IMPRESSION: 1. Cardiomegaly with no acute cardiopulmonary abnormality. 2. A 4 cm indeterminant nodular density is suggested in the left suprahilar region. Correlation with a chest CT is recommended to exclude underlying pulmonary lesion. ACT 112: Negative or not required by law. Electronically signed by: Kaiden Denise M.D. 06/13/2021 4:09 PM Venous Doppler Study 06/13/21 15:21 ULTRASOUND BILATERAL LOWER EXTREMITY VENOUS CLINICAL HISTORY: Leg swelling. Dyspnea. Recent travel. COMPARISON STUDY: No priors. TECHNIQUE: Real-time, grayscale, and color Doppler sonography of the deep veins of the right and left lower extremity was performed from the inguinal crease to the calf. Compression and augmentation were utilized. FINDINGS: There is no sonographic evidence of deep venous thrombosis identified in the right or left lower extremity. The common femoral, superficial femoral, and popliteal veins are patent and normally compressible bilaterally. The greater saphenous vein and the profunda femoris vein at the junction with the common femoral vein are clear in both legs. The visualized calf veins are patent bilaterally. IMPRESSION: There is no sonographic evidence of deep venous thrombosis identified in the right or left lower extremity. ACT 112: Negative or not required by law. Electronically signed by: Kaiden Denise M.D. 06/13/2021 4:43 PM Code Status & VTE Plan Code Status Full code VTE Prophylaxis Plan VTE Prophylaxis will be ordered: Yes PG Care Time/CCT Total # of Minutes Spent Total Time Spent with Patient: Total time spent is greater than 50% in coordination of care (as documented) at patient's floor/unit and/or counseling patient: Coding Level of Care Code 89686 Initial Inpt Care Lvl 3 Diagnoses Left upper lobe pneumonia J18.9 Type 2 diabetes mellitus, with long-term current use of insulin E11.9; Z79.4 Sleep apnea G47.30 Hypertension I10 Dyslipidemia E78.5 Diabetic peripheral neuropathy associated with type 2 diabetes mellitus E11.42 GERD (gastroesophageal reflux disease) K21.9 Asthma J45.909
[2021-06-13] MEDS ORDERED: ONDANSETRON INJ 2 MG/ML 2 ML VIAL IV PRN (21:03)
[2021-06-13] MEDS ORDERED: GLUCOSE 10 TABS/TUBE PO PRN (21:03)
[2021-06-13] MEDS ORDERED: GLUCAGON FOR INJ 1 MG VIAL SQ PRN (21:03)
[2021-06-13] MEDS ORDERED: ACETAMINOPHEN 325 MG TAB PO PRN (21:03)
[2021-06-13] MEDS ORDERED: DEXTROSE 50% 50 ML SYRINGE IV PRN (21:03)
[2021-06-13] MEDS ORDERED: GLUCOSE 40% GEL 15 GM TUBE PO PRN (21:03)
[2021-06-13] MEDS ORDERED: PIPERACILL/TAZOBAC CONSULT ACTIVE PRN (21:03)
[2021-06-13] MEDS ORDERED: CARBOHYDRATES FOR HYPOGLYCEMIA PO PRN (21:03)
[2021-06-13] MEDS ORDERED: ALBUT/IPRATROP 3MG/0.5MG NEB 3 ML VIAL ONE (21:26)
[2021-06-13] MEDS ORDERED: AZITHROMYCIN 500 MG in DEXTROSE 5% 250 ML IV SCH (21:30)
[2021-06-13] MEDS ORDERED: KETOROLAC TROMETHAMINE 15 MG/ML VIAL IV PRN (21:37)
[2021-06-13] MEDS: ALBUT/IPRATROP 3MG/0.5MG NEB 3 ML VIAL NEB SCH (21:45)
[2021-06-13] MEDS ORDERED: ALBUT/IPRATROP 3MG/0.5MG NEB 3 ML VIAL NEB SCH (21:45)
[2021-06-13] MEDS: BUDESONIDE 0.5 MG/2 ML VIAL (PULMICORT) NEB SCH (22:00)
[2021-06-13] MEDS: guaiFENesin 600 MG TABCR PO SCH (22:16)
[2021-06-13] MEDS: gemfibroziL 600 MG TAB PO SCH (22:17)
[2021-06-13] MEDS: INSULIN ASPART 100 UNITS/ML 3 ML PEN SC SCH (22:26)
[2021-06-13] MEDS ORDERED: PIPERACILLIN/TAZOBACTAM 4.5 GM in DEXTROSE 5% 100 ML IV ONE (23:00)
[2021-06-13] MEDS: methylPREDNISolone 20 MG in SYRINGE 0 ML IV SCH (23:06)
[2021-06-14] MEDS: ALBUT/IPRATROP 3MG/0.5MG NEB 3 ML VIAL NEB SCH ×3 (03:11→10:59)
[2021-06-14] MEDS: PIPERACILLIN/TAZOBACTAM 4.5 GM in DEXTROSE 5% 100 ML IV SCH ×2 (03:26→12:00)
[2021-06-14] MEDS ORDERED: ALBUT/IPRATROP 3MG/0.5MG NEB 3 ML VIAL NEB SCH (07:00)
[2021-06-14] MEDS: BUDESONIDE 0.5 MG/2 ML VIAL (PULMICORT) NEB SCH (07:45)
[2021-06-14 07:46] LABS: Basophils # (auto) 0.01 K/uL (0-0.2); Basophils % (auto) 0.1 %; Eosinophils # (auto) 0.02 K/uL (0-0.5); Eosinophils % (auto) 0.2 %; Hematocrit (blood only) 38.5 % (42-52); Hemoglobin 13.3 g/dL (14.0-18.0); Immature Granulocytes # (auto) 0.02 K/uL (0.00-0.02); Immature Granulocytes % (auto) 0.2 %; Lymphocytes # (auto) 0.64 K/uL (1.2-3.4); Lymphocytes % (auto) 5.8 %; Mean Corpuscular Hgb Conc 34.5 g/dL (32-36); Mean Corpuscular Volume 83.9 fL (80-100); Mean Platelet Volume 9.8 fL (7.4-10.4); Monocytes # (auto) 0.57 K/uL (0.11-0.59); Monocytes % (auto) 5.1 %; Neutrophils # (auto) 9.87 K/uL (1.4-6.5); Neutrophils % (auto) 88.6 %; Platelet Count 188 K/uL (130-400); RDW Coefficient of Variation 13.9 % (11.5-14.5); RDW Standard Deviation 42.5 fL (36.4-46.3); Red Blood Count 4.59 M/uL (4.7-6.1); White Blood Count 11.13 K/uL (4.8-10.8)
[2021-06-14] MEDS: gemfibroziL 600 MG TAB PO SCH (07:51)
[2021-06-14] MEDS: guaiFENesin 600 MG TABCR PO SCH (07:52)
[2021-06-14 08:14] LABS: Estimated Average Glucose 194 mg/dl; Hemoglobin A1C 8.4 % (4.5-5.6)
[2021-06-14 08:17] LABS: Albumin Level 3.2 gm/dl (3.4-5.0); BUN Creatinine Ratio 18.1 (10-20); Calcium 8.7 mg/dl (8.5-10.1); Creatinine Clr Calc Pharmacy 121.3 ml/min; Est GFR (African American) 98.3 ml/min; Est GFR (Non-African American) 84.9 ml/min; Magnesium 2.1 mg/dl (1.8-2.4); Potassium 4.1 mmol/L (3.5-5.1)
[2021-06-14 08:20] LABS: Albumin Globulin Ratio 0.8 (0.9-2); Bilirubin,Total 0.6 mg/dl (0.2-1); Globulin 3.9 gm/dl (2.5-4.0); Total Protein 7.1 gm/dl (6.4-8.2)
[2021-06-14] MEDS: INSULIN ASPART 100 UNITS/ML 3 ML PEN SC SCH ×2 (08:48→12:40)
[2021-06-14] MEDS ORDERED: FAMOTIDINE 40 MG TABLET PO SCH (09:00)
[2021-06-14] MEDS ORDERED: ASPIRIN 81 MG ECTAB PO SCH (09:00)
[2021-06-14] MEDS ORDERED: LOSARTAN POTASSIUM 50 MG TAB PO SCH (09:00)
[2021-06-14] MEDS ORDERED: CHOLECALCIFEROL 1,000 UNITS 25 MCG TAB PO SCH (09:00)
[2021-06-14] MEDS ORDERED: MAGNESIUM OXIDE 400 MG TAB PO SCH (09:00)
[2021-06-14] MEDS ORDERED: MONTELUKAST SODIUM 10 MG TABLET PO SCH (09:00)
[2021-06-14] MEDS ORDERED: INSULIN GLARGINE 100 UNIT/ML VIAL SC SCH (09:00)
--- NOTE | 2021-06-14 09:50 | Medical Student Progress Note ---
Date of Service June 14, 2021 Assessment & Plan Plan: Pt is a 61 yo male with a complex PMH significant for ISHAAN with CPAP, asthma, and DMII treated with long-term insulin, presenting with recurrent cough accompanied by new onset chest pain on inhalation and hemoptysis. 1) Upper lobe Pneumonia Pt has perihilar nodule in the left upper lobe. I considered actinomycines (cuello's lobe) due to upper lobe location and previous exposure to hay at son's farm. Culture of gram positive cocci suggests staph. This would be covered by There were also presence of gram negative bacilli which would be covered by ceftriaxone. I considered Mycoplasma because it would not be apparent with a gram stain. 2) Admission and Anticipated Discharge Date Admission Date: June 13, 2021 Subjective Pt is a 61 yo male with a complex PMH significant for ISHAAN with CPAP, asthma, and DMII treated with long-term insulin, presenting with recurrent cough a ccompanied by new onset chest pain on inhalation and hemoptysis. Results & Data ([facility]) Vital Signs (Past 12 Hours) Vital Signs Temp Pulse Pulse Pulse Resp BP BP 06/14/21 07:47 56 L 18 06/14/21 07:34 36.3 C L 56 L 18 161/70 H 06/14/21 07:03 63 06/14/21 03:12 80 14 06/14/21 02:20 36.5 C 55 L 20 167/76 H 06/13/21 22:59 83 06/13/21 21:48 80 06/13/21 21:45 85 12 Pulse Ox 06/14/21 07:47 95 06/14/21 07:34 97 06/14/21 07:03 06/14/21 03:12 98 06/14/21 02:20 97 06/13/21 22:59 06/13/21 21:48 06/13/21 21:45 99 Medications Administered Current Inpatient Medications Acetaminophen (Acetaminophen 325 Mg Tab) 650 mg PO Q4H PRN PRN Reason: Pain or Fever Stop: 07/13/21 21:02 Last Admin: 06/14/21 00:00 Dose: 650 mg Documented by: Albuterol (Albut/Ipratrop 3mg/0.5mg Neb 3 Ml Vial) 3 ml NEB Q4R CHARLY Stop: 07/13/21 22:59 Last Admin: 06/14/21 07:45 Dose: 3 ml Documented by: Aspirin (Aspirin 81 Mg Ectab) 81 mg PO QAM [facility] Stop: 07/14/21 08:59 Last Admin: 06/14/21 07:53 Dose: 81 mg Documented by: Budesonide (Budesonide 0.5 Mg/2 Ml Vial (Pulmicort)) 0.5 mg NEB BIDR [facility] Stop: 07/13/21 21:02 Last Admin: 06/14/21 07:45 Dose: 0.5 mg Documented by: Dextrose (Dextrose 50% 50 Ml Syringe) 25 - 50 ml IV UD PRN; Protocol PRN Reason: Hypoglycemia Protocol Stop: 07/13/21 21:02 Famotidine (Famotidine 40 Mg Tablet) 40 mg PO DAILY [facility] Stop: 07/14/21 08:59 Last Admin: 06/14/21 07:53 Dose: 40 mg Documented by: Gemfibrozil (Gemfibrozil 600 Mg Tab) 600 mg PO BID CHARLY Stop: 07/13/21 21:02 Last Admin: 06/14/21 07:51 Dose: 600 mg Documented by: Glucagon (Glucagon For Inj 1 Mg Vial) 1 mg SQ UD PRN; Protocol PRN Reason: Hypoglycemia Protocol Stop: 07/13/21 21:02 Glucose (Glucose 10 Tabs/Tube) 4 - 8 tabs PO UD PRN; Protocol PRN Reason: Hypoglycemia Protocol Stop: 07/13/21 21:02 Glucose (Glucose 40% Gel 15 Gm Tube) 15 - 30 gm PO UD PRN; Protocol PRN Reason: Hypoglycemia Protocol Stop: 07/13/21 21:02 Guaifenesin (Guaifenesin 600 Mg Tabcr) 1,200 mg PO Q12 CHARLY Stop: 07/13/21 21:02 Last Admin: 06/14/21 07:52 Dose: 1,200 mg Documented by: Piperacillin Sod/Tazobactam (Sod 4.5 gm/ Dextrose) 120 mls @ 30 mls/hr IV Q8H [facility]; Protocol Stop: 06/21/21 03:59 Last Infusion: 06/14/21 04:01 Dose: Infused Documented by: Azithromycin 500 mg/ Dextrose 255 mls @ 125 mls/hr IV Q24H [facility] Stop: 06/20/21 21:29 Last Infusion: 06/14/21 00:13 Dose: Infused Documented by: Methylprednisolone 20 mg/ (Syringe) 0.32 mls @ 1.5 mls/min IV Q12H [facility] Stop: 07/13/21 22:59 Last Admin: 06/13/21 23:06 Dose: 1.5 mls/min Documented by: Insulin Aspart (Insulin Aspart 100 Units/Ml 3 Ml Pen) 0 units SC ACHS [facility] Stop: 07/13/21 21:02 Last Admin: 06/14/21 08:48 Dose: 10 units Documented by: Insulin Glargine (Insulin Glargine 100 Unit/Ml Vial) 95 units SC [facility]; Protocol Stop: 07/15/21 08:59 Ketorolac Tromethamine (Ketorolac Tromethamine 15 Mg/Ml Vial) 15 mg IV Q6H PRN PRN Reason: Pain Stop: 06/18/21 21:36 Last Admin: 06/13/21 22:17 Dose: 15 mg Documented by: Losartan Potassium (Losartan Potassium 50 Mg Tab) 50 mg PO DAILY [facility] Stop: 07/14/21 08:59 Last Admin: 06/14/21 07:52 Dose: 50 mg Documented by: Magnesium Oxide (Magnesium Oxide 400 Mg Tab) 400 mg PO DAILY [facility] Stop: 07/14/21 08:59 Last Admin: 06/14/21 07:55 Dose: 400 mg Documented by: Miscellaneous (Carbohydrates For Hypoglycemia ) 15 - 30 gm PO UD PRN PRN Reason: Hypoglycemia Protocol Stop: 07/13/21 21:02 Miscellaneous Information (Piperacill/Tazobac Consult Active) 1 ea N/A UD PRN PRN Reason: Consult Stop: 07/13/21 21:02 Montelukast Sodium (Montelukast Sodium 10 Mg Tablet) 10 mg PO QAM [facility] Stop: 07/14/21 08:59 Last Admin: 06/14/21 07:53 Dose: 10 mg Documented by: Ondansetron HCl (Ondansetron Inj 2 Mg/Ml 2 Ml Vial) 4 mg IV Q6H PRN PRN Reason: Nausea Stop: 07/13/21 21:02 Vitamin D (Cholecalciferol 1,000 Units 25 Mcg Tab) 5,000 units PO DAILY [facility] Stop: 07/14/21 08:59 Last Admin: 06/14/21 07:51 Dose: 5,000 units Documented by:
[2021-06-14] MEDS: methylPREDNISolone 20 MG in SYRINGE 0 ML IV SCH (11:27)
--- NOTE | 2021-06-14 12:20 | Med Student Discharge Summary ---
Date of Service June 14, 2021 Admission HPI Per Admitting Provider The patient is a 61-year-old male with a past medical history including obstructive sleep apnea using CPAP at at bedtime, asthma, diabetes mellitus with long-term use of insulin, vitamin D sufficiency, morbid obesity with BMI 43.6, hypothyroidism, hypertension, dyslipidemia, diabetic peripheral neuropathy, GERD and right inguinal hernia. The patient reports that his symptoms developed before he began on a trip to [place] and [place], while he was there, his symptoms got worse. He has been on treatments successively with doxycycline, then a azithromycin and steroids. His symptoms are not improved, so he presents to the ED for assessment this evening. Of note, he does wear CPAP at nighttime, and has not kept up with his [employer] cleaning regimen at nighttime. Work-up in the emergency department included a CT scan which showed a left upper lobe consolidation with surrounding patchy groundglass opacities. Also noted was hepatomegaly and hepatic steatosis. Treatment by the emergency department consisted of a DuoNeb, fentanyl IV, ceftriaxone IV, morphine IV, Toradol IV and Dilaudid IV Discharge Data Consultations 06/13/21 18:28 ED Decision to Admit Stat Hospital Course (1) Left upper lobe pneumonia: Pt is a 61 yo male with a complex pmh significant for ISHAAN, asthma, and DMII with long-standing insulin treatment present with cough, hemoptysis, and pleuritic chest pain. Imaging demonstrated perihilar consolidation in the left upper lobe with possibility of nodule. He also had a non-negative troponin level of 0.027. Pt reported incompleted treatment with doxycycline. This was followed by completed azithromycin treatment with persistent symptoms. Clinical picture does not suggest MRSA as source for lobar pneumonia. High (25%) strep. pneumoniae resistance rates with azithromycin as well as a gram positive culture results, suggests strep. pneumoniae as source of community acquired pneumoniae. Considering this as a reoccurrence yet also presenting with mild symptoms, Augmentin was prescribed BID for a 10 day course. Possibility remains for H. flu as the bacterial source which would additionally be covered with the Amox/Clav treatment. Culture is still pending. Suggest following up with chest imaging in 6 weeks to confirm consolidation resolution. Troponin level was not ordered serially due to clinical correlation for chest pain was pleuritic in nature in addition to normal ECG report. Discharge Plan Discharge Items Patient Disposition: Home - Self-Care Reason For Visit: ABRAM PNEUMONIA Discharge Diagnosis: Left upper lobe pneumonia Activity: Per Instructions section Non-emergency contact: Primary Care Provider Call non-emergency contact if: you have any medication questions, your symptoms worsen and your temperature is above 101 Follow-up/Referrals: Rakesh Lowery MD [Primary Care Provider] - 06/23/21 10:30 am Diet: Carb Consistent or DM2 and Heart Healthy Addtl Attending Provider Instructions: You were admitted to [facility] due to pneumonia that was unresponsive to outpatient treatment. You were admitted for treatment of this pneumonia and were initially treated with intravenous antibiotics. A sputum culture was taken, which found many gram- positive cocci and few gram-negative bacilli. Using these results to guide our antibiotic choice, we will discharge you on 10 days of Augmentin 875mg twice daily. This antibiotic should be more than enough to cover both of the pathogens in your sputum culture. We recommend that you follow up with your primary care provider within the next week for continued monitoring of this as an outpatient. Additionally, we recommend you discuss follow-up imaging in 6 weeks to correlate full resolution of this infectious process as well as ruling out any obstructions that may have predisposed you to this type of pneumonia. If you develop fever, chills, worsening cough, or any other concerning symptoms, please call your PCP or return to the hospital for further evaluation. Pending Studies at Discharge: No Stand-Alone Forms: [facility] Cost, Smoking Cessation Medications and DC Order Prescriptions: New amoxicillin-pot clavulanate [Augmentin] 875-125 mg tablet 1 tab PO BID 10 Days Qty: 20 RF: 0 Continued insulin lispro [Humalog KwikPen Insulin] 100 unit/mL insulin pen See Rx Instructions SUBCUT TIDM Qty: 135 RF: 3 montelukast [Singulair] 10 mg tablet 10 mg PO QAM Qty: 90 RF: 3 albuterol sulfate 90 mcg/actuation HFA aerosol inhaler 2 puff inhalation .COMPLEX Qty: 18 RF: 3 Toujeo SoloStar U-300 Insulin 300 unit/mL (1.5 mL) insulin pen 95 unit SUBCUT QAM Qty: 31.5 RF: 3 gemfibrozil 600 mg tablet 600 mg PO BID Qty: 180 RF: 3 cholecalciferol (vitamin D3) 125 mcg (5,000 unit) capsule 125 mcg PO DAILY Qty: 30 RF: 0 losartan 50 mg tablet 50 mg PO DAILY Qty: 30 RF: 1 methylprednisolone [Medrol (Dale)] 4 mg tablets,dose pack See Rx Instructions .ROUTE .COMPLEX Qty: 21 RF: 0 aspirin 81 mg Tablet,Delayed Release (Dr/Ec) 81 mg PO QAM RF: 0 famotidine 40 mg tablet 40 mg PO DAILY RF: 0 magnesium oxide 500 mg Tablet 500 mg PO DAILY RF: 0 albuterol sulfate 2.5 mg /3 mL (0.083 %) solution for nebulization 2.5 mg inhalation QID PRN (Reason: shortness of breath or wheezing) Qty: 75 RF: 0 Discharge Orders: Discharge Order (Routine); Ordered 06/14/21 Ordered By: Richard Mccormack/Other Patient Handouts: A1C, Managing Type 2 Diabetes Admission Data Admit Date/Time: 06/13/21 19:47 Attending Provider: Han Lundberg Admit Provider: Memo Menchaca Primary Care Provider: Rakesh Lowery V. Other Providers: Kolby Mcpherson Other Interventions: Discharge Summary Assessment (RN) Last Done: 06/14/21 12:59 Supervising Attestation I personally examined the patient and verified all renteria points of history and exam, discussed case, and agree with decision making withiNck Burton. Feeling better. Pain in his chest is much better. Still cough with sputum. No shortness of breath. Vitals noted, in general he is awake and alert pleasant no distress. HEENT normocephalic atraumatic mucous membranes moist. Breathing unlabored no accessory muscle use good effort, lungs are clear without rales rhonchi or wheezes. Neuro no focal deficits. Skin without rashes, pallor, icterus. Community-acquired pneumonia present on admissionfailed outpatient treatment. Given what he failed, most likely resistant strep, versus less likely gram- negative such as Haemophilus. Either way improving, either way stable for home. Finish out a course of Augmentin. Follow-up imaging to clearing. Explained all to patient, expressed good understanding, answered all questions to the best my ability. Stable from, otherwise as above.
--- NOTE | 2021-06-14 16:41 | Electrocardiogram Report ---
Test Reason : Blood Pressure : / mmHG Vent. Rate : 075 BPM Atrial Rate : 075 BPM P-R Int : 266 ms QRS Dur : 106 ms QT Int : 416 ms P-R-T Axes : 021 -58 116 degrees QTc Int : 464 ms Sinus rhythm with 1st degree A-V block with Premature atrial complexes Left axis deviation Poor R wave progression, consider anterior [place] vs. lead placement vs. LVH T wave abnormality, consider lateral ischemia Abnormal ECG When compared with ECG of 08-DEC-2016 08:12, Premature atrial complexes are now Present Vent. rate has increased BY 26 BPM T wave inversion less evident in Lateral leads Confirmed by Lawrence Russell ([id number]) on 06/14/2021 4:41:16 PM Referred By: REFERRED SELF Confirmed By:Lawrence Russell
--- NOTE | 2021-06-14 16:43 | Electrocardiogram Report ---
Test Reason : Blood Pressure : / mmHG Vent. Rate : 052 BPM Atrial Rate : 052 BPM P-R Int : 266 ms QRS Dur : 102 ms QT Int : 444 ms P-R-T Axes : 037 -60 109 degrees QTc Int : 412 ms Sinus bradycardia with 1st degree A-V block with frequent Premature atrial complexes Left axis deviation Poor R wave progression, consider anterior [place] vs. lead placement vs. LVH T wave abnormality, consider lateral ischemia Abnormal ECG When compared with ECG of 13-JUN-2021 14:51, (unconfirmed) Premature atrial complexes are no longer Present QT has shortened Confirmed by Lawrence Russell ([id number]) on 06/14/2021 4:43:19 PM Referred By: REFERRED SELF Confirmed By:Lawrence Russell
--- NOTE | 2021-06-14 17:26 | Billing Data ---
Date of Service June 14, 2021 Coding Level of Care Code D/C DAY MANAGEMENT <30 MINS
[2021-06-15] MEDS ORDERED: INSULIN GLARGINE 100 UNIT/ML VIAL SC SCH ×2 (09:00)
== END 2021-06-14 14:58 | disposition home or self-care (01) ==
LOC: ED 14:08 → SUATTDRO 19:47 → 2N 19:47 → INTOOBSV 19:47 → 2N 20:43

== ENCOUNTER 2022-03-31 16:58 | Inpatient (IN) ==
[2022-03-31] MEDS ORDERED: ALBUT/IPRATROP 3MG/0.5MG NEB 3 ML VIAL INH STA (17:23)
[2022-03-31 18:26] LABS: Basophils # (auto) 0.01 K/uL (0-0.2); Basophils % (auto) 0.1 %; Eosinophils # (auto) 0.22 K/uL (0-0.5); Eosinophils % (auto) 2.2 %; Hematocrit (blood only) 39.8 % (42-52); Hemoglobin 13.8 g/dL (14.0-18.0); Immature Granulocytes # (auto) 0.04 K/uL (0.00-0.02); Immature Granulocytes % (auto) 0.4 %; Lymphocytes # (auto) 0.98 K/uL (1.2-3.4); Lymphocytes % (auto) 9.6 %; Mean Corpuscular Hemoglobin 28.7 pg (25-34); Mean Corpuscular Hgb Conc 34.7 g/dL (32-36); Mean Corpuscular Volume 82.7 fL (80-100); Mean Platelet Volume 9.5 fL (7.4-10.4); Monocytes # (auto) 0.41 K/uL (0.11-0.59); Neutrophils # (auto) 8.56 K/uL (1.4-6.5); Neutrophils % (auto) 83.7 %; Platelet Count 177 K/uL (130-400); RDW Standard Deviation 42.3 fL (36.4-46.3); Red Blood Count 4.81 M/uL (4.7-6.1); White Blood Count 10.22 K/uL (4.8-10.8)
--- NOTE | 2022-03-31 18:36 | Emergency Department Note ---
History of Present Illness General Chief complaint: Shortness of Breath/Dyspnea Stated complaint: SOB, COUGH Time Seen by Provider: 03/31/22 18:16 Source: patient, family ( who is at the bedside) and old records reviewed Mode of arrival: ambulatory Limitations: no limitations History of Present Illness This patient is 61-year-old male who is comes in after feeling sick for about the last 2 to 3 weeks he has had a significant cough with yellow phlegm. He tried to get in with his doctor but said that because he had COVID-like symptoms they do not want to see him in person and only telemedicine and he went to [facility]. He said he was tested for COVID and flu which were negative his was also tested at the time and she had symptoms as well and she was negative. He has been on antibiotics and cough syrup he has been getting worse he is been coughing up green stuff with a tiny bit of hemoptysis over the last couple days he has had no fever for the last 4 days but 4 days ago had an episode of a fever. He had some lumps on his legs and lower extremity edema he was out helping his son was stopped in the weeds and thinks he got poison evie. He has significant dyspnea on exertion he cannot lay flat because he gets short of breath he wears CPAP at night. He has been coughing. Denies chest pain or pleurisy. He is not on steroids Home Medications Medication Instructions Recorded Confirmed Type aspirin 81 mg tablet,delayed 81 mg PO HS 02/22/19 03/31/22 History release gemfibrozil 600 mg tablet 600 mg PO BID #180 tab 06/06/21 03/31/22 Rx magnesium oxide 500 mg tablet 500 mg PO HS 06/13/21 03/31/22 History albuterol sulfate 2.5 mg INHALATION QID PRN #75 ml 06/14/21 03/31/22 Rx pen needle, diabetic 31 gauge x #1200 ea 10/06/21 01/12/22 Rx 01/11" (BD Ultra-Fine Mini Pen Needle) albuterol sulfate 90 mcg/actuation 2 puff INHALATION .COMPLEX #18 g 02/14/22 03/31/22 Rx aerosol inhaler blood sugar diagnostic (OneTouch #500 ea 03/13/22 Rx Verio test strips) insulin lispro 100 unit/mL See Rx Instructions SUBCUT TIDM 03/13/22 03/31/22 Rx subcutaneous pen (Humalog KwikPen #135 ml (U-100) Insulin) cholecalciferol (vitamin D3) 125 125 mcg PO HS 03/31/22 03/31/22 History mcg (5,000 unit) capsule doxycycline hyclate 100 mg capsule 100 mg PO BID 03/31/22 03/31/22 History fluticasone propionate 50 50 mcg INTRANASAL DAILY 03/31/22 03/31/22 History mcg/actuation nasal spray,suspension ibuprofen 200 mg tablet (Advil) 800 mg PO Q6H PRN 03/31/22 03/31/22 History insulin glargine U-300 conc 300 100 unit SUBCUT HS 03/31/22 03/31/22 History unit/mL (1.5 mL) subcutaneous pen (Toujeo SoloStar U-300 Insulin) losartan 100 mg tablet 100 mg PO HS 03/31/22 03/31/22 History montelukast 10 mg tablet 10 mg PO HS 03/31/22 03/31/22 History (Singulair) mupirocin 2 % topical ointment 1 applic TOPICAL BID PRN 03/31/22 03/31/22 History Allergies Allergy/AdvReac Type Severity Reaction Status Date / Time mold Allergy Unknown ALLERGY Verified 03/31/22 19:27 SYMPTOMS hydrochlorothiazide AdvReac Severe Hyperglycem Verified 03/31/22 19:27 ia Past Med/Surg History Medical History Asthma Asthmatic bronchitis Breathlessness Chest pain Claustrophobia Diabetes Diabetes mellitus type 2, controlled Diabetic peripheral neuropathy associated with type 2 diabetes mellitus Dysesthesia Dyslipidemia GERD (gastroesophageal reflux disease) UNDER CONTROL History of right inguinal hernia Hypertension (~07/2021) Hypothyroidism Not immune to hepatitis B virus Obesity, morbid, BMI 40.0-49.9 Pancreatitis Sleep apnea CPAP HS Type 2 diabetes mellitus, with long-term current use of insulin since 2014 Vitamin D insufficiency Surgical History History of colonoscopy History of esophagogastroduodenoscopy (EGD) History of tonsillectomy Numbness and tingling in right hand HX-POST OP WITH HERNIA SURGERY [place] [facility] [place] A RESULT PRESSURE ON NERVE TO HAND INTRAOP PER PT-FULL SENSATION HAS RETURNED S/P hernia repair S/P tooth extraction Status post laparoscopic cholecystectomy Family History Grandmother Cardiac disorder Mother Stroke Father Diabetes Cancer Prostate cancer Denies family history of Ovarian cancer Myocardial infarction Breast cancer Colorectal cancer Social History Smoking Status: Never smoker Second Hand Exposure: No; Do You Dip or Chew Tobacco: No; Tobacco Cessation Education Requested by Patient: No Hx Alcohol Use: Yes Alcohol type: hard liquor Hx Substance Use: No Preferred Language: Croatian Communication Ability: Effective Visual Impairment: No Limitations Hearing Ability: Normal Clinical Exercise Specialist Required: No Beliefs That Will Affect Care: None marital status: Current Living Situation: Spouse Current Living Situation Comment: home with current occupational status: employed Other Information That Helps Us Care for You: No Feels Safe at Home: Yes Safety Concerns: Feels Safe At This Time Assistive Devices: CPAP Review of Systems A total of 10 systems reviewed and were otherwise negative Physical Exam Vital Signs Vital Signs - 24 hr 03/31/22 17:12 03/31/22 19:00 Temperature 36.6 C 36.9 C Temperature Source Temporal Artery Scan Oral Pulse Rate 78 66 Pulse Rate [Apical] 66 Pulse Rhythm Regular Pulse Rhythm [Apical] Regular Pulse Strength [Apical] Normal Respiratory Rate 20 18 Respiratory Effort / Characteristics Non-Labored Spontaneous Non-Labored Spontaneous Respiratory Depth Normal Normal Respiratory Pattern Regular Regular Blood Pressure 202/110 H Blood Pressure [Left Arm] 211/103 H Blood Pressure Mean 140 Blood Pressure Mean [Left Arm] 139 Blood Pressure Position Sitting Blood Pressure Position [Left Arm] Sitting Pulse Oximetry 95 97 Oxygen Delivery Method Room Air Room Air Sepsis Recent Fever Within 48 Hours No Sepsis New/Unexplained Change in Mental Status No Sepsis Action Taken by Nursing No Action Required General: Well developed well nourished middle-age male who is sitting in bed and says he feels okay at rest but gets very short of breath if he moves. He is coughing occasionally, no increased work of breathing in no acute distress, breathing comfortably on room air. Normal speech HEENT: Normal cephalic atraumatic. Pupils are equal round and reactive to light. Extraocular movements are intact. Oropharynx is pink with moist mucous membranes. No swelling of the mouth lips or tongue. Neck: Supple with a midline trachea. No meningeal signs or stiffness, no JVD or bruits. No Stridor. Chest: Clear to auscultation bilaterally. No wheezes or rhonchi. No increased work of breathing. Heart: Regular rate and rhythm without murmurs or gallops. Abdomen: Soft nontender. He does appear to be distended but without rebound guarding or rigidity. Extremities: No cyanosis clubbing. He does have bilateral lower extremity edema. He thinks this is new. No calf tenderness or assymetry. He also has several lesions on both of his legs which are scabs in a linear array likely consistent with an allergic dermatitis. No cellulitis. Spine/Back. Non tender to palpation. No CVA tenderness Skin: Good turgor without rashes. Neurologic exam: Cranial nerves two through 12 are intact. Motor and sensation are intact and symmetrical throughout. Course Administered Medications Discontinued Medications Albuterol (Albut/Ipratrop 3mg/0.5mg Neb 3 Ml Vial) 3 ml INH NOW STA Stop: 03/31/22 17:24 Last Admin: 03/31/22 18:57 Dose: 3 ml Documented by: [id number] Albuterol (Albuterol Hfa 8 Gm Inhaler) 2 puffs INH Q2H PRN PRN Reason: SOB or wheeze Stop: 04/30/22 22:21 Last Admin: 03/31/22 23:12 Dose: 2 puffs Documented by: [id number] Furosemide (Furosemide 40 Mg/4 Ml Vial) 40 mg IV ONE ONE Stop: 03/31/22 20:45 Last Admin: 03/31/22 21:06 Dose: 40 mg Documented by: [id number] Losartan Potassium (Losartan Potassium 50 Mg Tab) 100 mg PO NOW STA Stop: 03/31/22 20:03 Last Admin: 03/31/22 20:54 Dose: 100 mg Documented by: [id number] Medical Decision Making Differential Diagnosis Hypertension, cardiac disease, CHF, thyroid disease/myxedema, electrolyte or metabolic abnormality, pneumonia, bronchitis, sepsis, reactive airway disease Medical Records Attestation: I reviewed the patient's medical records. Home Medications Current Medication List: was personally reviewed by me Laboratory Data Attestation: I reviewed the patient's lab results. Result diagrams: 03/31/22 18:14 03/31/22 18:14 Lab Results 03/31/22 03/31/22 03/31/22 Range/Units 17:47 18:14 18:14 WBC 10.22 (4.8-10.8) K/uL RBC 4.81 (4.7-6.1) M/uL Hgb 13.8 L (14.0-18.0) g/dL Hct 39.8 L (42-52) % MCV 82.7 (80-100) fL MCH 28.7 (25-34) pg MCHC 34.7 (32-36) g/dL RDW Std Deviation 42.3 (36.4-46.3) fL RDW Coeff of James 14.0 (11.5-14.5) % Plt Count 177 (130-400) K/uL MPV 9.5 (7.4-10.4) fL Immature Gran % (Auto) 0.4 % Neut % (Auto) 83.7 % Lymph % (Auto) 9.6 % [place] % (Auto) 4.0 % Eos % (Auto) 2.2 % Baso % (Auto) 0.1 % Neut # (Auto) 8.56 H (1.4-6.5) K/uL Lymph # (Auto) 0.98 L (1.2-3.4) K/uL [place] # (Auto) 0.41 (0.11-0.59) K/uL Eos # (Auto) 0.22 (0-0.5) K/uL Baso # (Auto) 0.01 (0-0.2) K/uL Immature Gran # (Auto) 0.04 H (0.00-0.02) K/uL PT 10.9 (9.0-12.0) Seconds INR 1.0 (0.9-1.1) APTT 25.0 (21.0-31.0) Seconds PTT Ratio 0.9 Sodium (136-145) mmol/L Potassium (3.5-5.1) mmol/L Chloride (98-107) mmol/L Carbon Dioxide (21-32) mmol/L Anion Gap (3-11) BUN (6-23) mg/dl Creatinine (0.6-1.4) mg/dl Est Cr Clr Drug Dosing ml/min Est GFR ( Amer) ml/min Est GFR (Non-Af Amer) ml/min BUN/Creatinine Ratio (10-20) Glucose (70-99(Fasting)) mg/dl Calcium (8.5-10.1) mg/dl Magnesium (1.7-2.4) mg/dl Total Bilirubin (0.2-1.0) mg/dl AST (13-39) U/L ALT (7-52) U/L Alkaline Phosphatase (34-104) U/L Troponin I High Sens (0-20) pg/ml B-Natriuretic Peptide (0-100) pg/ml Total Protein (6.0-8.3) gm/dl Albumin (3.4-5.0) gm/dl Globulin (2.5-4.0) gm/dl Albumin/Globulin Ratio (0.9-2) TSH (0.300-4.500) uIu/ml SARS-CoV-2 (PCR) NEGATIVE (Negative) Influenza Type A (PCR) Negative (Neg) Influenza Type B (PCR) Negative (Neg) RSV (RT-PCR) Negative (Neg) 03/31/22 03/31/22 03/31/22 Range/Units 18:14 18:25 18:25 WBC (4.8-10.8) K/uL RBC (4.7-6.1) M/uL Hgb (14.0-18.0) g/dL Hct (42-52) % MCV (80-100) fL MCH (25-34) pg MCHC (32-36) g/dL RDW Std Deviation (36.4-46.3) fL RDW Coeff of James (11.5-14.5) % Plt Count (130-400) K/uL MPV (7.4-10.4) fL Immature Gran % (Auto) % Neut % (Auto) % Lymph % (Auto) % [place] % (Auto) % Eos % (Auto) % Baso % (Auto) % Neut # (Auto) (1.4-6.5) K/uL Lymph # (Auto) (1.2-3.4) K/uL [place] # (Auto) (0.11-0.59) K/uL Eos # (Auto) (0-0.5) K/uL Baso # (Auto) (0-0.2) K/uL Immature Gran # (Auto) (0.00-0.02) K/uL PT (9.0-12.0) Seconds INR (0.9-1.1) APTT (21.0-31.0) Seconds PTT Ratio Sodium 136 (136-145) mmol/L Potassium 4.0 (3.5-5.1) mmol/L Chloride 102 (98-107) mmol/L Carbon Dioxide 25 (21-32) mmol/L Anion Gap 9 (3-11) BUN 17 (6-23) mg/dl Creatinine 1.06 (0.6-1.4) mg/dl Est Cr Clr Drug Dosing 108.7 ml/min Est GFR ( Amer) 86.1 ml/min Est GFR (Non-Af Amer) 74.3 ml/min BUN/Creatinine Ratio 16.0 (10-20) Glucose 261 H (70-99(Fasting)) mg/dl Calcium 9.2 (8.5-10.1) mg/dl Magnesium 1.8 (1.7-2.4) mg/dl Total Bilirubin 0.6 (0.2-1.0) mg/dl AST 24 (13-39) U/L ALT 40 (7-52) U/L Alkaline Phosphatase 88 (34-104) U/L Troponin I High Sens 40.4 H (0-20) pg/ml B-Natriuretic Peptide 138 H (0-100) pg/ml Total Protein 6.9 (6.0-8.3) gm/dl Albumin 4.1 (3.4-5.0) gm/dl Globulin 2.8 (2.5-4.0) gm/dl Albumin/Globulin Ratio 1.5 (0.9-2) TSH 2.045 (0.300-4.500) uIu/ml SARS-CoV-2 (PCR) (Negative) Influenza Type A (PCR) (Neg) Influenza Type B (PCR) (Neg) RSV (RT-PCR) (Neg) 03/31/22 Range/Units 20:15 WBC (4.8-10.8) K/uL RBC (4.7-6.1) M/uL Hgb (14.0-18.0) g/dL Hct (42-52) % MCV (80-100) fL MCH (25-34) pg MCHC (32-36) g/dL RDW Std Deviation (36.4-46.3) fL RDW Coeff of James (11.5-14.5) % Plt Count (130-400) K/uL MPV (7.4-10.4) fL Immature Gran % (Auto) % Neut % (Auto) % Lymph % (Auto) % [place] % (Auto) % Eos % (Auto) % Baso % (Auto) % Neut # (Auto) (1.4-6.5) K/uL Lymph # (Auto) (1.2-3.4) K/uL [place] # (Auto) (0.11-0.59) K/uL Eos # (Auto) (0-0.5) K/uL Baso # (Auto) (0-0.2) K/uL Immature Gran # (Auto) (0.00-0.02) K/uL PT (9.0-12.0) Seconds INR (0.9-1.1) APTT (21.0-31.0) Seconds PTT Ratio Sodium (136-145) mmol/L Potassium (3.5-5.1) mmol/L Chloride (98-107) mmol/L Carbon Dioxide (21-32) mmol/L Anion Gap (3-11) BUN (6-23) mg/dl Creatinine (0.6-1.4) mg/dl Est Cr Clr Drug Dosing ml/min Est GFR ( Amer) ml/min Est GFR (Non-Af Amer) ml/min BUN/Creatinine Ratio (10-20) Glucose (70-99(Fasting)) mg/dl Calcium (8.5-10.1) mg/dl Magnesium (1.7-2.4) mg/dl Total Bilirubin (0.2-1.0) mg/dl AST (13-39) U/L ALT (7-52) U/L Alkaline Phosphatase (34-104) U/L Troponin I High Sens 37.2 H (0-20) pg/ml B-Natriuretic Peptide (0-100) pg/ml Total Protein (6.0-8.3) gm/dl Albumin (3.4-5.0) gm/dl Globulin (2.5-4.0) gm/dl Albumin/Globulin Ratio (0.9-2) TSH (0.300-4.500) uIu/ml SARS-CoV-2 (PCR) (Negative) Influenza Type A (PCR) (Neg) Influenza Type B (PCR) (Neg) RSV (RT-PCR) (Neg) Imaging Data Attestation: I personally reviewed and interpreted this imaging study as follows: My Impression: Chest x-raycardiomegaly. There may be a mild congestive heart failure component as well. Radiologist's Impression: Chest X-Ray 03/31/22 17:23 SINGLE VIEW CHEST CLINICAL HISTORY: Cough and dyspnea FINDINGS: An AP, portable, upright chest radiograph is compared to study dated 07/08/2021. Correlation is made with chest CT dated 06/13/2021. The examination is degraded by portable technique and large body habitus. The heart is enlarged. The pulmonary vasculature is noncongested. Atelectasis is seen at the lung bases. The lungs and pleural spaces are otherwise clear. No pneumothorax is seen. The bony thorax is grossly intact. IMPRESSION: Cardiomegaly with no acute cardiopulmonary abnormality identified. ACT 112: Negative or not required by law. Electronically signed by: Kaiden Denise M.D. 03/31/2022 7:56 PM ECG Data Attestation: I personally reviewed and interpreted this ECG as follows: Indication: + SOB/dyspnea Rate (beats per minute): 73 Rhythm: + normal sinus ECG Intervals/blocks: + First degree AV block, + Normal QRS, + Normal QT and + Normal MO ECG [place]: + Left axis deviation ECG ST segments: + T-wave inversions (Laterally) ECG Findings: no PACs or no PVCs Comparison ECG Date: from (06/03/21) Change: no significant change MDM Narrative This patient is a 61-year-old male who comes in with continuing cough and shortness of breath which is primarily dyspnea on exertion and orthopnea. He does have bilateral lower extremity edema as well as some edema in his abdomen. I am concerned more about CHF and may also be related to his thyroid. His blood pressure was high initially which could also go along with CHF. He was placed on a traffic monitor specialist EKG multiple blood testing was obtained. His initial EKG does not suggest acute coronary syndrome or arrhythmia and is no change compared to old. He has no fever or white count to suggest infection. Chest x-ray shows cardiomegaly which may have a congestive heart failure component as well. BNP is mildly elevated. Initial troponin was mildly elevated and repeat was done which is actually less. EKG does not suggest acute coronary syndrome or arrhythmia. The patient does have high blood pressure and also dyspnea on exertion and orthopnea he also appears to be fluid overloaded. I think most likely this is congestive heart failure component but there may be a post viral symptoms as well. [facility] for further evaluation and likely admission Continuous cardiac monitoring: An order was placed in the EMR for continuous cardiac monitoring. Upon my interpretation, the patient was noted to be in normal sinus rhythm with a rate of 73 Impression & Plan CHF (congestive heart failure), SOB (shortness of breath), Diabetic peripheral neuropathy associated with type 2 diabetes mellitus, Obesity, morbid, BMI 40.0- 49.9, Bilateral edema of lower extremity, Lab test negative for COVID-19 virus Discharge Plan Visit Data Chief Complaint: Shortness of Breath/Dyspnea Stated Complaint: SOB, COUGH ED Provider: Javier Woodall Discharge Problem: CHF (congestive heart failure), SOB (shortness of breath), Diabetic peripheral neuropathy associated with type 2 diabetes mellitus, Obesity, morbid, BMI 40.0- 49.9, Bilateral edema of lower extremity, Lab test negative for COVID-19 virus Patient Disposition: Admitted As Inpatient Discharge Instructions Interventions: ED Discharge Assessment Last Done: 03/31/22 22:07
[2022-03-31 18:38] LABS: Partial Thromboplastin Ratio 0.9; Prothrombin Time 10.9 Seconds (9.0-12.0)
[2022-03-31 18:48] LABS: Albumin Globulin Ratio 1.5 (0.9-2); Albumin Level 4.1 gm/dl (3.4-5.0); Bilirubin,Total 0.6 mg/dl (0.2-1.0); Calcium 9.2 mg/dl (8.5-10.1); Creatinine Clr Calc Pharmacy 108.7 ml/min; Est GFR (African American) 86.1 ml/min; Est GFR (Non-African American) 74.3 ml/min; Globulin 2.8 gm/dl (2.5-4.0); Magnesium 1.8 mg/dl (1.7-2.4); Total Protein 6.9 gm/dl (6.0-8.3)
[2022-03-31 18:52] LABS: Troponin I High Sensitivity 40.4 pg/ml (0-20)
[2022-03-31 19:06] LABS: Influenza A virus by PCR Negative (Neg); Influenza B virus by PCR Negative (Neg); RSV by PCR Negative (Neg); SARS CoV2 RNA(COVID-19) InHosp NEGATIVE (Negative)
--- NOTE | 2022-03-31 19:59 | XRay Report ---
SINGLE VIEW CHEST CLINICAL HISTORY: Cough and dyspnea FINDINGS: An AP, portable, upright chest radiograph is compared to study dated 07/08/2021. Correlation is made with chest CT dated 06/13/2021. The examination is degraded by portable technique and large b maia habitus. The heart is enlarged. The pulmonary vasculature is noncongested. Atelectasis is seen at the lung bases. The lungs and pleural spaces are otherwise clear. No pneumothorax is seen. The bony thorax is grossly intact. IMPRESSION: Cardiomegaly with no acute cardiopulmonary abnormality identified. ACT 112: Negative or not required by law. Electronically signed by: Kaiden Denise M.D. 03/31/2022 7:56 PM
[2022-03-31] MEDS ORDERED: LOSARTAN POTASSIUM 50 MG TAB PO STA (20:02)
[2022-03-31] MEDS ORDERED: FUROSEMIDE 40 MG/4 ML VIAL IV ONE (20:44)
--- NOTE | 2022-03-31 20:44 | History & Physical Report ---
Date of Service March 31, 2022 Assessment & Plan (1) SOB (shortness of breath): Plan: 61yo male presents with 2-3 weeks of persistent cough productive for yellow sputum as well as orthopnea/edema/ESTRELLA. Patient afebrile, adequate oxygenation on room air. No leukocytosis. Procalcitonin is negative. Ddx to include post- viral bronchitis with persistent cough, asthma exacerbation, CHF exacerbation . Last echo 09/08/21 - normal LV size and function with EF of 55-60%, moderate concentric LVH, Grade I diastolic dysfunction -Admit to medical -Lasix 40mg IV x 1 given - monitor I/Os, daily weights and symptoms - Redose as needed -Check 2D echo -Symptomatic management with TesrobinsononMirelasin sugar free -Albuterol PRN -Continue Doxycycline 100mg po BID -Will hold on steroids for now until diuresis is attempted. (2) Hypertension: Plan: Elevated blood pressure in ER, improved after IV Losartan -Continue Losartan -Diuresis with Lasix x 40mg -Monitor BP (3) Type 2 diabetes mellitus, with long-term current use of insulin: Plan: Elevated blood sugar 261 today. Diabetes fairly well controlled with last HgbA1C on 12/26/21 = 7.3. He is on U-300 insulin -Lantus 100u qHS -ISS -Goal blood sugar inpatient 100 -140 -Glycemic management consultation appreciated (4) Sleep apnea: Plan: Chronic -Continue nocturnal CPAP [id number] -Patient may use own machine (5) Hypothyroidism: Plan: Normal TSH (6) Dyslipidemia: Plan: Chronic -Gemfibrozil at home (7) Asthma: Plan: Chronic. Some mild end-expiratory wheezing -Continue Singulair 10mg po qHS -Albuterol neb PRN -Will hold on steroids for now - consider if no improvement in symptoms with diuresis History of Present Illness Chief Complaint: "sick" Primary Care Provider: Rakesh Lowery MD Mr. Deniz Ahumada is a pleasant 61yo male with history of illness x 2-3 weeks. He is complaining predominantly of cough productive for yellow to green sputum. Also with complaint of orthopnea, he has been sleeping upright due to SOB and bilateral LE edema. He has dyspnea with minimal exertion as well as chest tightness and wheeze. He has generalized abdominal pain as well as chest wall pain from coughing. No exertional chest pain, dizziness, syncope, palpitations, nausea, vomiting, diarrhea or constipation. He was seen at [facility] 8 days ago and was given a prescription for Doxycycline x 10 days and a cough medicine. He has not noted any improvement. He has been taking his PRN Albuterol 2-3 times daily with minimal improvement as well. He is compliant with his CPAP ([id number] qHS - 100% compliance). Recent respiratory illness in family - and sons with URIs. Hypertensive in the ER to 211/103. Improved after IV Lasix and PO Losartan administered. ER Course: Albuterol, Losartan 100mg po, Lasix 40mg IV x 1 Allergies Allergy/AdvReac Type Severity Reaction Status Date / Time mold Allergy Unknown ALLERGY Verified 03/31/22 19:27 SYMPTOMS hydrochlorothiazide AdvReac Severe Hyperglycem Verified 03/31/22 19:27 ia Home Medications Medication Instructions Recorded Confirmed Type aspirin 81 mg tablet,delayed 81 mg PO HS 02/22/19 03/31/22 History release gemfibrozil 600 mg tablet 600 mg PO BID #180 tab 06/06/21 03/31/22 Rx magnesium oxide 500 mg tablet 500 mg PO HS 06/13/21 03/31/22 History albuterol sulfate 2.5 mg INHALATION QID PRN #75 ml 06/14/21 03/31/22 Rx pen needle, diabetic 31 gauge x #1200 ea 10/06/21 01/12/22 Rx 3/16" (BD Ultra-Fine Mini Pen Needle) albuterol sulfate 90 mcg/actuation 2 puff INHALATION .COMPLEX #18 g 02/14/22 03/31/22 Rx aerosol inhaler blood sugar diagnostic (OneTouch #500 ea 03/13/22 Rx Verio test strips) insulin lispro 100 unit/mL See Rx Instructions SUBCUT TIDM 03/13/22 03/31/22 Rx subcutaneous pen (Humalog KwikPen #135 ml (U-100) Insulin) cholecalciferol (vitamin D3) 125 125 mcg PO HS 03/31/22 03/31/22 History mcg (5,000 unit) capsule doxycycline hyclate 100 mg capsule 100 mg PO BID 03/31/22 03/31/22 History fluticasone propionate 50 50 mcg INTRANASAL DAILY 03/31/22 03/31/22 History mcg/actuation nasal spray,suspension ibuprofen 200 mg tablet (Advil) 800 mg PO Q6H PRN 03/31/22 03/31/22 History insulin glargine U-300 conc 300 100 unit SUBCUT HS 03/31/22 03/31/22 History unit/mL (1.5 mL) subcutaneous pen (Toujeo SoloStar U-300 Insulin) losartan 100 mg tablet 100 mg PO HS 03/31/22 03/31/22 History montelukast 10 mg tablet 10 mg PO HS 03/31/22 03/31/22 History (Singulair) mupirocin 2 % topical ointment 1 applic TOPICAL BID PRN 03/31/22 03/31/22 History Past Med/Surg History Medical History Asthma Asthmatic bronchitis Breathlessness Chest pain Claustrophobia Diabetes Diabetes mellitus type 2, controlled Diabetic peripheral neuropathy associated with type 2 diabetes mellitus Dysesthesia Dyslipidemia GERD (gastroesophageal reflux disease) UNDER CONTROL History of right inguinal hernia Hypertension (~07/2021) Hypothyroidism Not immune to hepatitis B virus Obesity, morbid, BMI 40.0-49.9 Pancreatitis Sleep apnea CPAP HS Type 2 diabetes mellitus, with long-term current use of insulin since 2014 Vitamin D insufficiency Surgical History History of colonoscopy History of esophagogastroduodenoscopy (EGD) History of tonsillectomy Numbness and tingling in right hand HX-POST OP WITH HERNIA SURGERY 04/2018 AT [facility] [place] DIAGNOSED A RESULT PRESSURE ON NERVE TO HAND INTRAOP PER PT-FULL SENSATION HAS RETURNED S/P hernia repair S/P tooth extraction Status post laparoscopic cholecystectomy Family History Grandmother Cardiac disorder Mother Stroke Father Diabetes Cancer Prostate cancer Denies family history of Ovarian cancer Myocardial infarction Breast cancer Colorectal cancer Social History Smoking Status: Never smoker Second Hand Exposure: No; Do You Dip or Chew Tobacco: No; Tobacco Cessation Education Requested by Patient: No Hx Alcohol Use: Yes Alcohol type: hard liquor Hx Substance Use: No Preferred Language: [place] Communication Ability: Effective Visual Impairment: No Limitations Hearing Ability: Normal Torpedo Shooter Required: No Beliefs That Will Affect Care: None marital status: Current Living Situation: Spouse Current Living Situation Comment: home with current occupational status: employed Other Information That Helps Us Care for You: No Feels Safe at Home: Yes Safety Concerns: Feels Safe At This Time Assistive Devices: CPAP Review of Systems Review of Systems: All systems reviewed & are unremarkable except as noted in HPI & below Physical Exam Physical Exam: General: patient resting comfortably, NAD, non-toxic in appearance, AA&O x 4 Skin: warm, dry, intact, no rashes or lesions HEENT: NC/AT, PERRL, EOMI, anicteric sclera, conjunctiva without injection, external ear normal to inspection and nontender, nares patent, moist mucus membranes, dentition intact, no oropharyngeal lesions, neck supple, trachea midline, no LAD, no thyromegaly, no JVD Heart: +S1/S2, regular, no m/r/g Lungs: equal air entry bilaterally, faint crackles present in bilateral bases with scattered end-expiratory wheezing Abd: +BS, soft, NT/ND, no masses/organomegaly/ascites Ext: warm, 2+ pulses in UE/LE bilaterally, no clubbing/cyanosis, +edema of bilateral LE as well as findings of chronic venous stasis - skin thickening, possible stasis dermatitis present on posterior left leg Neuro: nonfocal, patient AA&O x 4, speech intact, no facial droop, moving all extremities on command with equal strength 5/5 Results & Data Results & Data ([facility]) Vital Signs (Past 12 Hours) Vital Signs Temp Pulse Pulse Resp BP BP Pulse Ox 03/31/22 19:00 36.9 C 66 66 18 211/103 H 97 03/31/22 17:12 36.6 C 78 20 202/110 H 95 Laboratory Results Laboratory Results WBC 10.22 K/uL (4.8-10.8) 03/31/22 18:14 RBC 4.81 M/uL (4.7-6.1) 03/31/22 18:14 Hgb 13.8 g/dL (14.0-18.0) L 03/31/22 18:14 Hct 39.8 % (42-52) L 03/31/22 18:14 MCV 82.7 fL (80-100) 03/31/22 18:14 MCH 28.7 pg (25-34) 03/31/22 18:14 MCHC 34.7 g/dL (32-36) 03/31/22 18:14 RDW Std Deviation 42.3 fL (36.4-46.3) 03/31/22 18:14 RDW Coeff of James 14.0 % (11.5-14.5) 03/31/22 18:14 Plt Count 177 K/uL (130-400) 03/31/22 18:14 MPV 9.5 fL (7.4-10.4) 03/31/22 18:14 Immature Gran % (Auto) 0.4 % 03/31/22 18:14 Neut % (Auto) 83.7 % 03/31/22 18:14 Lymph % (Auto) 9.6 % 03/31/22 18:14 Lea % (Auto) 4.0 % 03/31/22 18:14 Eos % (Auto) 2.2 % 03/31/22 18:14 Baso % (Auto) 0.1 % 03/31/22 18:14 Neut # (Auto) 8.56 K/uL (1.4-6.5) H 03/31/22 18:14 Lymph # (Auto) 0.98 K/uL (1.2-3.4) L 03/31/22 18:14 Lea # (Auto) 0.41 K/uL (0.11-0.59) 03/31/22 18:14 Eos # (Auto) 0.22 K/uL (0-0.5) 03/31/22 18:14 Baso # (Auto) 0.01 K/uL (0-0.2) 03/31/22 18:14 Immature Gran # (Auto) 0.04 K/uL (0.00-0.02) H 03/31/22 18:14 PT 10.9 Seconds (9.0-12.0) 03/31/22 18:14 INR 1.0 (0.9-1.1) 03/31/22 18:14 APTT 25.0 Seconds (21.0-31.0) 03/31/22 18:14 PTT Ratio 0.9 03/31/22 18:14 Sodium 136 mmol/L (136-145) 03/31/22 18:14 Potassium 4.0 mmol/L (3.5-5.1) 03/31/22 18:14 Chloride 102 mmol/L (98-107) 03/31/22 18:14 Carbon Dioxide 25 mmol/L (21-32) 03/31/22 18:14 Anion Gap 9 (3-11) 03/31/22 18:14 BUN 17 mg/dl (6-23) 03/31/22 18:14 Creatinine 1.06 mg/dl (0.6-1.4) 03/31/22 18:14 Est Cr Clr Drug Dosing 108.7 ml/min 03/31/22 18:14 Est GFR ( Amer) 86.1 ml/min 03/31/22 18:14 Est GFR (Non-Af Amer) 74.3 ml/min 03/31/22 18:14 BUN/Creatinine Ratio 16.0 (10-20) 03/31/22 18:14 Glucose 261 mg/dl (70-99(Fasting)) H 03/31/22 18:14 POC Glucose 165 mg/dl (70-99) H 03/31/22 23:25 Calcium 9.2 mg/dl (8.5-10.1) 03/31/22 18:14 Magnesium 1.8 mg/dl (1.7-2.4) 03/31/22 18:14 Total Bilirubin 0.6 mg/dl (0.2-1.0) 03/31/22 18:14 AST 24 U/L (13-39) 03/31/22 18:14 ALT 40 U/L (7-52) 03/31/22 18:14 Alkaline Phosphatase 88 U/L (34-104) 03/31/22 18:14 Troponin I High Sens 37.2 pg/ml (0-20) H 03/31/22 20:15 B-Natriuretic Peptide 138 pg/ml (0-100) H 03/31/22 18:25 Total Protein 6.9 gm/dl (6.0-8.3) 03/31/22 18:14 Albumin 4.1 gm/dl (3.4-5.0) 03/31/22 18:14 Globulin 2.8 gm/dl (2.5-4.0) 03/31/22 18:14 Albumin/Globulin Ratio 1.5 (0.9-2) 03/31/22 18:14 Procalcitonin 0.12 ng/ml (0-0.5) 03/31/22 20:44 TSH 2.045 uIu/ml (0.300-4.500) 03/31/22 18:25 SARS-CoV-2 (PCR) NEGATIVE (Negative) 03/31/22 17:47 Influenza Type A (PCR) Negative (Neg) 03/31/22 17:47 Influenza Type B (PCR) Negative (Neg) 03/31/22 17:47 RSV (RT-PCR) Negative (Neg) 03/31/22 17:47 Impressions Chest X-Ray 03/31/22 17:23 SINGLE VIEW CHEST CLINICAL HISTORY: Cough and dyspnea FINDINGS: An AP, portable, upright chest radiograph is compared to study dated 07/08/2021. Correlation is made with chest CT dated 06/13/2021. The examination is degraded by portable technique and large body habitus. The heart is enlarged. The pulmonary vasculature is noncongested. Atelectasis is seen at the lung bases. The lungs and pleural spaces are otherwise clear. No pneumothorax is seen. The bony thorax is grossly intact. IMPRESSION: Cardiomegaly with no acute cardiopulmonary abnormality identified. ACT 112: Negative or not required by law. Electronically signed by: Kaiden Denise M.D. 03/31/2022 7:56 PM ECG Additional Comments: EKG wtih SR at 73, pst degree AV block with JV=288, ULF=359, NIw=972, left axis deviation, poor R-wave progression, no acute ischemic changes Code Status & VTE Plan VTE Prophylaxis Plan VTE Prophylaxis will be ordered: Yes PG Care Time/CCT Total # of Minutes Spent Total Time Spent with Patient: Total time spent is greater than 50% in coordination of care (as documented) at patient's floor/unit and/or counseling patient: Coding Level of Care Code 74994 Initial Inpt Care Lvl 3 Diagnoses SOB (shortness of breath) R06.02 Type 2 diabetes mellitus, with long-term current use of insulin E11.9; Z79.4 Sleep apnea G47.30 Hypothyroidism E03.9 Hypertension I10 Dyslipidemia E78.5 Asthma J45.909
[2022-03-31] MEDS ORDERED: CARBOHYDRATES FOR HYPOGLYCEMIA PO PRN (22:22)
[2022-03-31] MEDS ORDERED: GLUCAGON FOR INJ 1 MG VIAL SQ PRN (22:22)
[2022-03-31] MEDS ORDERED: ACETAMINOPHEN 325 MG TAB PO PRN (22:22)
[2022-03-31] MEDS ORDERED: GLUCOSE 10 TABS/TUBE PO PRN (22:22)
[2022-03-31] MEDS ORDERED: ALBUTEROL HFA 8 GM INHALER INH PRN (22:22)
[2022-03-31] MEDS ORDERED: PHARMACY GLYCEMIC MGMT CONSULT PRN (22:22)
[2022-03-31] MEDS ORDERED: GLUCOSE 40% GEL 15 GM TUBE PO PRN (22:22)
[2022-03-31] MEDS ORDERED: DEXTROSE 50% 50 ML SYRINGE IV PRN (22:22)
[2022-03-31] MEDS ORDERED: ONDANSETRON INJ 2 MG/ML 2 ML VIAL IV PRN (22:22)
[2022-03-31] MEDS ORDERED: INSULIN GLARGINE 100 UNIT/ML VIAL SC ONE (23:00)
[2022-03-31] MEDS ORDERED: INSULIN ASPART PER UNIT SC ONE (23:00)
[2022-03-31] MEDS: DOXYCYCLINE HYCLATE 100 MG CAP PO SCH (23:26)
[2022-03-31] MEDS: ASPIRIN 81 MG ECTAB PO SCH (23:26)
[2022-03-31] MEDS: BENZONATATE 100 MG CAPSULE PO SCH (23:27)
[2022-03-31] MEDS: MONTELUKAST SODIUM 10 MG TABLET PO SCH (23:27)
[2022-03-31] MEDS: ENOXAPARIN INJ 40 MG/0.4 ML SYR SQ SCH (23:28)
[2022-04-01] MEDS ORDERED: ALBUTEROL 0.083% NEBU SOLN 3 ML VIAL NEB PRN (00:10)
[2022-04-01] MEDS: INSULIN ASPART PER UNIT SC SCH ×5 (04:31→21:26)
[2022-04-01 06:59] LABS: Basophils # (auto) 0.01 K/uL (0-0.2); Basophils % (auto) 0.1 %; Hematocrit (blood only) 39.1 % (42-52); Hemoglobin 13.2 g/dL (14.0-18.0); Immature Granulocytes # (auto) 0.05 K/uL (0.00-0.02); Immature Granulocytes % (auto) 0.5 %; Lymphocytes # (auto) 1.35 K/uL (1.2-3.4); Lymphocytes % (auto) 13.5 %; Mean Corpuscular Hemoglobin 27.8 pg (25-34); Mean Corpuscular Hgb Conc 33.8 g/dL (32-36); Mean Corpuscular Volume 82.3 fL (80-100); Mean Platelet Volume 9.5 fL (7.4-10.4); Monocytes # (auto) 0.73 K/uL (0.11-0.59); Monocytes % (auto) 7.3 %; Neutrophils # (auto) 7.66 K/uL (1.4-6.5); Neutrophils % (auto) 76.6 %; Platelet Count 164 K/uL (130-400); RDW Coefficient of Variation 14.1 % (11.5-14.5); RDW Standard Deviation 42.4 fL (36.4-46.3); Red Blood Count 4.75 M/uL (4.7-6.1)
[2022-04-01 07:52] LABS: Potassium 3.4 mmol/L (3.5-5.1)
[2022-04-01 07:58] LABS: BUN Creatinine Ratio 19.4 (10-20); Creatinine Clr Calc Pharmacy 117.6 ml/min; Est GFR (African American) 94.7 ml/min; Est GFR (Non-African American) 81.7 ml/min
[2022-04-01] MEDS: BENZONATATE 100 MG CAPSULE PO SCH ×3 (08:12→21:18)
[2022-04-01] MEDS: guaiFENesin SUGAR FREE 100 MG/5 ML UDC PO PRN ×2 (08:19→17:51)
[2022-04-01] MEDS: ENOXAPARIN INJ 40 MG/0.4 ML SYR SQ SCH ×2 (08:48→21:18)
[2022-04-01] MEDS ORDERED: FLUTICASONE PROPIONATE NA SPR 16 GM BTL SCH (09:00)
[2022-04-01] MEDS: FLUTICASONE PROPIONATE NA SPR 16 GM BTL SCH (09:05)
[2022-04-01 10:09] LABS: Estimated Average Glucose 183 mg/dl
[2022-04-01] MEDS: DOXYCYCLINE HYCLATE 100 MG CAP PO SCH (10:26)
[2022-04-01] MEDS: HYDROCORTISONE 1% CRM 30 GM TUBE EXT PRN ×2 (10:26→19:27)
[2022-04-01] MEDS ORDERED: FUROSEMIDE 40 MG/4 ML VIAL IV SCH (10:45)
[2022-04-01] MEDS: FUROSEMIDE 40 MG/4 ML VIAL IV SCH ×2 (12:08→16:43)
--- NOTE | 2022-04-01 14:33 | Pharmacy Report ---
Pharmacy Glycemic Short Note 2 - Date of Service April 01, 2022 - Glycemic Short BSG Results (Last 24 hours): 03/31/22 03/31/22 04/01/22 18:14 23:25 03:51 Glucose 261 H POC Glucose 165 H 138 H 04/01/22 04/01/22 04/01/22 06:23 08:11 12:26 Glucose 122 H POC Glucose 144 H 188 H OUTPATIENT ANTIDIABETIC REGIMEN: * Novolog 30-50 units SQ AC * Toujeo 100 units SQ HS ASSESSMENT: * 61 y/o M admitted for possible bronchitis/ asthma exacerbation. Patient with history of Type 2 diabetes managed on basal + bolus insulin at home. * Patient received 80 units of basal insulin last night. * Fasting BSG today was 122 mg/dl. Resume patient's home dose of basal insulin tonight. * Novolog was ordered last night based on stress of 2. Continued this again today. PLAN FOR INPATIENT GLYCEMIC CONTROL: * Basal insulin * Lantus 100 units SQ HS * Bolus insulin * NovoLog per scale ACHS or Q6hrs while NPO * Goal Range: Low 100 mg/dL - High 140 mg/dL * Correction Factor: 15 mg/dL/unit * Nutritional / Prandial insulin per carb ratio of 1 unit per 5 grams CHO consumed
[2022-04-01] MEDS: IBUPROFEN 600 MG TAB PO PRN (16:42)
--- NOTE | 2022-04-01 17:17 | XCELERA ---
[id number]
--- NOTE | 2022-04-01 18:10 | Hospitalist Progress Note ---
Date of Service April 01, 2022 Assessment & Plan (1) SOB (shortness of breath): Plan: 61yo male presents with 2-3 weeks of persistent cough productive for yellow sputum as well as orthopnea/edema/ESTRELLA. Patient afebrile, adequate oxygenation on room air. No leukocytosis. Procalcitonin is negative. Ddx to include post- viral bronchitis with persistent cough, asthma exacerbation, CHF exacerbation . -Feels significantly better, stating that lower extremity edema started about 2 days ago, responded very well to Lasix, edema is going down, BNP is low, Echo performed today showed grade 1 diastolic dysfunction prior echo 09/08/21 - normal LV size and function with EF of 55-60%, moderate concentric LVH, Grade I diastolic dysfunction, almost No wheezing on exam, started on Lasix 40 mg IV twice daily Discussed with in the (2) Hypertension: Plan: Better controlled now (3) Type 2 diabetes mellitus, with long-term current use of insulin: Plan: Diabetes type 2 insulin resistant HgbA1C on 12/26/21 = 7.3. He is on U-300 insulin -Lantus 100u qHS -ISS -Goal blood sugar inpatient 100 -140 -Glycemic management consultation appreciated (4) Sleep apnea: Plan: Chronic -Continue nocturnal CPAP [id number] -Patient may use own machine (5) Hypothyroidism: Plan: Normal TSH (6) Dyslipidemia: Plan: Chronic -Gemfibrozil at home (7) Asthma: Plan: No wheezing on exam continue albuterol. Admission and Anticipated Discharge Date Admission Date: March 31, 2022 Subjective Feels significantly better after started on Lasix Review of Systems Review of Systems: General: No malaise no weakness Neck: No tenderness no pain HEENT: No eye discharge no ear discharge Chest: No chest pain, no palpitation GI: Not distended, no nausea no vomiting Extremities: No edema no tenderness Neurology: No headache no weakness Psychiatric: No depression no anxiety Physical Exam Physical Exam: General: patient resting comfortably, NAD, non-toxic in appearance, AA&O x 4 Skin: warm, dry, intact, no rashes or lesions HEENT: NC/AT, PERRL, EOMI, anicteric sclera, conjunctiva without injection, external ear normal to inspection and nontender, nares patent, moist mucus membranes, dentition intact, no oropharyngeal lesions, neck supple, trachea midline, no LAD, no thyromegaly, no JVD Heart: +S1/S2, regular, no m/r/g Lungs: equal air entry bilaterally, faint crackles present in bilateral bases with scattered end-expiratory wheezing Abd: +BS, soft, NT/ND, no masses/organomegaly/ascites Ext: warm, 2+ pulses in UE/LE bilaterally, no clubbing/cyanosis, +edema of bilateral LE as well as findings of chronic venous stasis - skin thickening, possible stasis dermatitis present on posterior left leg Neuro: nonfocal, patient AA&O x 4, speech intact, no facial droop, moving all extremities on command with equal strength 5/5 Results & Data Results & Data ([facility]) Vital Signs (Past 12 Hours) Vital Signs Temp Pulse Resp BP Pulse Ox 04/01/22 15:52 37.3 C 73 18 148/72 H 97 04/01/22 07:45 71 16 94 04/01/22 07:14 36.8 C 72 22 170/83 H 96 PG Care Time/CCT Total # of Minutes Spent Total Time Spent with Patient: Total time spent is greater than 50% in coordination of care (as documented) at patient's floor/unit and/or counseling patient: Coding Level of Care Code 46283 Subseq Hosp Care Lvl 2 Diagnoses SOB (shortness of breath) R06.02 Hypertension I10 Type 2 diabetes mellitus, with long-term current use of insulin E11.9; Z79.4 Sleep apnea G47.30 Hypothyroidism E03.9 Dyslipidemia E78.5 Asthma J45.909
[2022-04-01] MEDS ORDERED: INSULIN GLARGINE 100 UNIT/ML VIAL SC SCH (21:00)
[2022-04-01] MEDS ORDERED: LOSARTAN POTASSIUM 50 MG TAB PO SCH (21:00)
[2022-04-01] MEDS: MONTELUKAST SODIUM 10 MG TABLET PO SCH (21:18)
[2022-04-01] MEDS: ASPIRIN 81 MG ECTAB PO SCH (21:18)
[2022-04-02 06:50] LABS: BUN Creatinine Ratio 22.8 (10-20); Calcium 8.8 mg/dl (8.5-10.1); Creatinine Clr Calc Pharmacy 114.1 ml/min; Est GFR (African American) 91.3 ml/min; Est GFR (Non-African American) 78.8 ml/min; Potassium 3.2 mmol/L (3.5-5.1)
[2022-04-02] MEDS: ENOXAPARIN INJ 40 MG/0.4 ML SYR SQ SCH (08:09)
--- NOTE | 2022-04-02 08:09 | Electrocardiogram Report ---
Test Reason : Blood Pressure : / mmHG Vent. Rate : 073 BPM Atrial Rate : 073 BPM P-R Int : 286 ms QRS Dur : 112 ms QT Int : 420 ms P-R-T Axes : 033 -60 112 degrees QTc Int : 462 ms Sinus rhythm with 1st degree A-V block with Premature atrial complexes Left axis deviation Anterior infarct (cited on or before 31-MAR-2022) T wave abnormality, consider lateral ischemia Abnormal ECG When compared with ECG of 13-JUN-2021 18:27, No significant change Confirmed by Chino Morin ([id number]) on 04/02/2022 8:09:40 AM Referred By: REFERRED SELF Confirmed By:Chino Morin
[2022-04-02] MEDS: BENZONATATE 100 MG CAPSULE PO SCH ×2 (08:10→13:13)
[2022-04-02] MEDS: FUROSEMIDE 40 MG/4 ML VIAL IV SCH (08:10)
[2022-04-02] MEDS: FLUTICASONE PROPIONATE NA SPR 16 GM BTL SCH (08:10)
[2022-04-02] MEDS: INSULIN ASPART PER UNIT SC SCH ×2 (08:40→13:13)
[2022-04-02] MEDS: IBUPROFEN 600 MG TAB PO PRN (10:44)
[2022-04-02] MEDS: HYDROCORTISONE 1% CRM 30 GM TUBE EXT PRN (10:44)
[2022-04-02] MEDS ORDERED: POTASSIUM CHLORIDE CRTAB 20 MEQ TABCR PO SCH (11:45)
[2022-04-02] MEDS ORDERED: FUROSEMIDE 40 MG/4 ML VIAL IV ONE (13:17)
--- NOTE | 2022-04-02 17:19 | Discharge Summary ---
Date of Service April 02, 2022 Admission HPI Per Admitting Provider Mr. Deniz Ahumada is a pleasant 61yo male with history of illness x 2-3 weeks. He is complaining predominantly of cough productive for yellow to green sputum. Also with complaint of orthopnea, he has been sleeping upright due to SOB and bilateral LE edema. He has dyspnea with minimal exertion as well as chest tightness and wheeze. He has generalized abdominal pain as well as chest wall pain from coughing. No exertional chest pain, dizziness, syncope, palpitations, nausea, vomiting, diarrhea or constipation. He was seen at [facility] 8 days ago and was given a prescription for Doxycycline x 10 days and a cough medicine. He has not noted any improvement. He has been taking his PRN Albuterol 2-3 times daily with minimal improvement as well. He is compliant with his CPAP ([id number] qHS - 100% compliance). Recent respiratory illness in family - and sons with URIs. Hypertensive in the ER to 211/103. Improved after IV Lasix and PO Losartan administered. ER Course: Albuterol, Losartan 100mg po, Lasix 40mg IV x 1 Principal Diagnosis Shortness of breath, orthopnea, lower extremity edema multifactorial, possibly combination of viral infection, and CHF exacerbation diastolic type Discharge Exam General: patient resting comfortably, NAD, non-toxic in appearance, AA&O x 4 Skin: warm, dry, intact, no rashes or lesions HEENT: NC/AT, PERRL, EOMI, anicteric sclera, conjunctiva without injection, external ear normal to inspection and nontender, nares patent, moist mucus membranes, dentition intact, no oropharyngeal lesions, neck supple, trachea midline, no LAD, no thyromegaly, no JVD Heart: +S1/S2, regular, no m/r/g Lungs: equal air entry bilaterally, faint crackles present in bilateral bases with scattered end-expiratory wheezing Abd: +BS, soft, NT/ND, no masses/organomegaly/ascites Ext: warm, 2+ pulses in UE/LE bilaterally, no clubbing/cyanosis, +edema of bilateral LE as well as findings of chronic venous stasis - skin thickening, possible stasis dermatitis present on posterior left leg Neuro: nonfocal, patient AA&O x 4, speech intact, no facial droop, moving all extremities on command with equal strength 5/5 Discharge Data Allergies Allergy/AdvReac Type Severity Reaction Status Date / Time mold Allergy Unknown ALLERGY Verified 03/31/22 19:27 SYMPTOMS hydrochlorothiazide AdvReac Severe Hyperglycem Verified 03/31/22 19:27 ia Consultations 03/31/22 20:08 ED Decision to Admit Stat Hospital Course (1) SOB (shortness of breath): 61yo male presents with 2-3 weeks of persistent cough productive for yellow sputum as well as orthopnea/edema/ESTRELLA. Patient afebrile, adequate oxygenation on room air. No leukocytosis. Procalcitonin is negative. Ddx to include post-viral bronchitis with persistent cough, asthma exacerbation, CHF exacerbation . -The patient symptoms are very likely CHF exacerbation, given the patient presented with exertional dyspnea, orthopnea, lower extremity edema associated with some productive cough, however chest x-ray did not show any evidence of congestion, BNP is low, patient started on Lasix and responded very well. His lower extremity edema subsided. Patient now is not suffering anymore from orthopnea, cannot lie flat and his shortness of breath has resolved. Echo performed 04/01 showed grade 1 diastolic dysfunction prior echo 09/08/21 - normal LV size and function with EF of 55-60%, moderate concentric LVH, Grade I diastolic dysfunction, almost Patient discharged on Lasix 40 mg twice daily with potassium. (Given patient developed hypokalemia during the admission) patient was advised to follow-up with longshore equipment operator, patient stated that he would like to follow-up with his longshore equipment operator. Patient suffering from diabetes insulin resistant type, patient was advised to use a SGLT2 inhibitors given has cardioprotective effect and also given patient suffering from morbid obesity. Patient's BMI is more than 40. Patient was advised to lose weight and follow-up with bariatric surgeon. SGLT 2 inhibitor also can help to lose weight, patient will follow-up with his primary care physician. Patient was advised to check his BMP in 1 week (2) Hypertension: The patient presented to the hospital with uncontrolled hypertension, currently controlled with current regimen (3) Type 2 diabetes mellitus, with long-term current use of insulin: Diabetes type 2 insulin resistant HgbA1C on 12/26/21 = 7.3. He is on U-300 insulin -Lantus 100u qHS -ISS -Goal blood sugar inpatient 100 -140 -Glycemic management consultation appreciated Patient advised to take SGLT2 inhibitors after discussing with his primary care doc (4) Sleep apnea: Chronic -Continue nocturnal CPAP [id number] -Patient may use own machine (5) Hypothyroidism: Normal TSH (6) Dyslipidemia: Chronic -Gemfibrozil at home (7) Asthma: No wheezing on exam continue albuterol. Total Time Total Time Spent Total Time Spent (In Minutes): 45 MINS Discharge Plan Discharge Items Patient Disposition: Home - Self-Care Reason For Visit: SOB, COUGH Discharge Diagnosis: Shortness of breath Health Concerns: Losing weight is very important, losing weight can help you with your heart disease, and diabetes, please discuss with your primary care doctor about bariatric surgery Activity: Resume your previous activity Lifting: Gradually increase as tolerated Sexual Activity: When tolerated Driving/Machine Use: No limitations Weightbearing: Full weightbearing Non-emergency contact: Primary Care Provider and [employer] Call non-emergency contact if: you have any medication questions Follow-up/Referrals: Rakesh Lowery MD [Primary Care Provider] - Diet: Carb Count or DM1 and Heart Healthy Addtl Attending Provider Instructions: Please follow-up with your longshore equipment operator as instructed, you may benefit from Jardiance or any other type of SGLT 2 inhibitors, can help you with your weight diabetes and has cardio protective effect, please discuss it with your primary care doctor,/cardiology Pending Studies at Discharge: Yes Studies:: BMP in 1 week Stand-Alone Forms: My [place], Smoking Cessation Medications and DC Order Prescriptions: New potassium chloride 20 mEq Tablet,Er Particles/Crystals 40 meq PO DAILY Qty: 90 RF: 0 furosemide [Lasix] 40 mg tablet 40 mg PO DAILY Qty: 90 RF: 0 Continued gemfibrozil 600 mg tablet 600 mg PO BID Qty: 180 RF: 3 (DME) pen needle, diabetic [BD Ultra-Fine Mini Pen Needle] 31 gauge x 3/16" needle See Rx Instructions .ROUTE .MEDSUPPLY Qty: 1200 RF: 3 albuterol sulfate 90 mcg/actuation HFA aerosol inhaler 2 puff inhalation .COMPLEX Qty: 18 RF: 3 insulin lispro [Humalog KwikPen Insulin] 100 unit/mL insulin pen See Rx Instructions SUBCUT TIDM Qty: 135 RF: 3 (DME) OneTouch Verio test strips Strip See Rx Instructions .Route Qty: 500 RF: 3 aspirin 81 mg Tablet,Delayed Release (Dr/Ec) 81 mg PO HS RF: 0 magnesium oxide 500 mg Tablet 500 mg PO HS RF: 0 albuterol sulfate 2.5 mg /3 mL (0.083 %) solution for nebulization 2.5 mg inhalation QID PRN (Reason: shortness of breath or wheezing) Qty: 75 RF: 0 doxycycline hyclate 100 mg capsule 100 mg PO BID RF: 0 ibuprofen [Advil] 200 mg Tablet 800 mg PO Q6H PRN (Reason: Pain) RF: 0 cholecalciferol (vitamin D3) 125 mcg (5,000 unit) capsule 125 mcg PO HS RF: 0 montelukast [Singulair] 10 mg tablet 10 mg PO HS RF: 0 mupirocin 2 % ointment 1 applic topical BID PRN (Reason: Skin Irritation) RF: 0 losartan 100 mg tablet 100 mg PO HS RF: 0 Toujeo SoloStar U-300 Insulin 300 unit/mL (1.5 mL) insulin pen 100 unit SUBCUT HS RF: 0 fluticasone propionate 50 mcg/actuation spray,suspension 50 mcg INTRANASAL DAILY RF: 0 Discharge Orders: Discharge Order (Routine); Ordered 04/02/22 Ordered By: Loki Mccormack/Other Patient Handouts: What Is Heart Failure, Managing Type 2 Diabetes Admission Data Admit Date/Time: 03/31/22 20:43 Attending Provider: Loki Mendez Admit Provider: Liliana Goodman Primary Care Provider: Rakesh Lowery V. Other Providers: Liliana Goodman Other Interventions: Discharge Summary Assessment (RN) Last Done: 04/02/22 14:48 Coding Level of Care Code D/C DAY MANAGEMENT >30 MINS Diagnoses SOB (shortness of breath) R06.02 Hypertension I10 Type 2 diabetes mellitus, with long-term current use of insulin E11.9; Z79.4 Sleep apnea G47.30 Hypothyroidism E03.9 Dyslipidemia E78.5 Asthma J45.909
== END 2022-04-02 15:17 | disposition home or self-care (01) | DRG 291 ==
LOC: ED 16:58 → SUATTDRO 20:43 → 3N 20:43

== ENCOUNTER 2024-09-18 16:09 | Inpatient (IN) ==
--- NOTE | 2024-09-18 17:15 | Ultrasound Report ---
EXAM: US Duplex Left Lower Extremity Veins INDICATION: Pain. TECHNIQUE: Real-time duplex ultrasound scan of the left lower extremity veins integrating B-mode two-dimensional vascular structure, Doppler spectral analysis, color flow Doppler imaging and compression. COMPARISON: No relevant prior studies available. FINDINGS: Deep veins: No DVT in the visualized common femoral, femoral or popliteal veins. The veins demonstrate normal color flow, are normally compressible, with normal phasic flow and/or augmentation response. Superficial veins: No abnormality noted. No thrombus in the visualized great saphenous vein. Soft tissues: No abnormality noted. IMPRESSION: No deep venous thrombosis of the left lower extremity. ACT 112: Negative or not required by law. Electronically signed by Anju Galindo 09-18-2024 5:15 PM
--- NOTE | 2024-09-18 17:27 | Emergency Department Note ---
History of Present Illness General Chief complaint: Swelling/Edema to Extremity Stated complaint: L LEG SWELLING, WARM TO THE TOUCH, DR REFERRED Time Seen by Provider: 09/18/24 17:09 History of Present Illness Maximum Pain Intensity: 1 This is a 64-year-old male who presents to the emergency department via private vehicle with complaints of "left leg pain, swelling, redness". The patient notes that yesterday into today he noticed redness, swelling to the left leg. It has progressed since yesterday. Pain is minimal and 1/10. No fevers or chills. Patient is concerned this may be an infection. Patient denies any history of DVT. No trauma or injury. Home Medications Medication Instructions Recorded Confirmed Type aspirin 81 mg tablet,delayed 81 mg PO HS 02/22/19 09/18/24 History release magnesium oxide 500 mg PO HS 06/13/21 09/18/24 History ibuprofen 200 mg tablet (Advil) 800 mg PO Q6H PRN Pain 03/31/22 09/18/24 History gemfibrozil 600 mg tablet 600 mg PO BID #180 tabs 09/13/23 09/18/24 Rx blood sugar diagnostic (OneTouch #500 ea 11/02/23 09/18/24 Rx Verio test strips) losartan 100 mg tablet 100 mg PO HS #90 tabs 02/07/24 09/18/24 Rx pen needle, diabetic 31 gauge x #1,200 ea 03/19/24 09/18/24 Rx 3/16" (BD Ultra-Fine Mini Pen Needle) furosemide 40 mg tablet (Lasix) 40 mg PO DAILY PRN edema #90 tabs 03/26/24 09/18/24 Rx potassium chloride 20 mEq 40 meq (2 x 20 mEq) PO DAILY PRN 03/26/24 09/18/24 Rx tablet,extended release(part/cryst) with FUROSEMIDE #180 tabs insulin glargine U-300 conc 300 120 unit (0.4 mL) subcut HS #36 mL 05/02/24 09/18/24 Rx unit/mL (1.5 mL) subcutaneous pen (Toujeo SoloStar U-300 Insulin) montelukast 10 mg tablet 10 mg PO HS #90 tabs 09/03/24 09/18/24 Rx (Singulair) cholecalciferol (vitamin D3) 50 50 mcg PO HS 09/18/24 09/18/24 History mcg (2,000 unit) tablet (Vitamin D3) empagliflozin 25 mg tablet 25 mg PO HS 09/18/24 09/18/24 History (Jardiance) insulin lispro 100 unit/mL 0 unit subcut TID 09/18/24 09/18/24 History subcutaneous pen (Humalog KwikPen (U-100) Insulin) Allergies Allergy/AdvReac Type Severity Reaction Status Date / Time mold Allergy Unknown ALLERGY Verified 09/18/24 15:19 SYMPTOMS hydrochlorothiazide AdvReac Severe Hyperglycem Verified 09/18/24 15:19 ia lisinopril AdvReac Cough Verified 09/18/24 15:19 Past Med/Surg History Problem List (Updated 09/18/24 @ 22:04 by Alphonso Dempsey PA-C) Hyperglycemia (Acute) Elevated procalcitonin (Acute) Cellulitis of left leg (Acute) Refusal of statin medication by patient Anemia Diastolic heart failure Metabolic syndrome Microalbuminuria 1st degree AV block Lump of skin of left lower extremity Uncontrolled hypertension EKG abnormalities Neurodermatitis Low back pain Encounter for health maintenance examination Left knee pain Type 2 diabetes mellitus with complications (Chronic) Vitamin D insufficiency (Chronic) Type 2 diabetes mellitus, with long-term current use of insulin (Chronic) Sleep apnea (Chronic) CPAP HS Obesity, morbid, BMI 40.0-49.9 (Chronic) Not immune to hepatitis B virus (Chronic) Hypothyroidism (Chronic) Hypertension (Chronic ~07/2021) Dyslipidemia (Chronic) Diabetic peripheral neuropathy associated with type 2 diabetes mellitus (Chronic) Claustrophobia (Chronic) GERD (gastroesophageal reflux disease) (Chronic) Asthma (Chronic) Medical History Left leg pain Edema Muscle stiffness SOB (shortness of breath) History of right inguinal hernia CHF (congestive heart failure) Left upper lobe pneumonia Chest pain Breathlessness Diabetes mellitus type 2, controlled Dysesthesia Asthmatic bronchitis Pancreatitis Diabetes Surgical History Numbness and tingling in right hand HX-POST OP WITH HERNIA SURGERY 04/2018 AT [facility] [place] DIAGNOSED A RESULT PRESSURE ON NERVE TO HAND INTRAOP PER PT-FULL SENSATION HAS RETURNED History of tonsillectomy History of colonoscopy History of esophagogastroduodenoscopy (EGD) S/P tooth extraction S/P hernia repair Status post laparoscopic cholecystectomy Family History Grandmother Cardiac disorder Mother Stroke Father Diabetes Cancer Prostate cancer Denies family history of Ovarian cancer Myocardial infarction Breast cancer Colorectal cancer Social History Smoking Status: Never smoker Second Hand Exposure: No; Do You Dip or Chew Tobacco: No; Hx Alcohol Use: Yes Alcohol type: hard liquor Hx Substance Use: No Preferred Language: Mozambican Communication Ability: Effective Visual Impairment: No Limitations Hearing Ability: Normal Renal Medicine Physician Required: No Beliefs That Will Affect Care: None marital status: Current Living Situation: Spouse Current Living Situation Comment: with current occupational status: employed Other Information That Helps Us Care for You: No Feels Safe at Home: Yes Safety Concerns: Feels Safe At This Time Seatbelt Use: always Assistive Devices: CPAP and Glasses Review of Systems A total of 10 systems reviewed and were otherwise negative Physical Exam Vital Signs Vital Signs - 24 hr 09/18/24 18:42 09/18/24 20:00 Pulse Rate [Right Finger] 68 70 Respiratory Rate 16 16 Respiratory Effort / Characteristics Non-Labored Spontaneous Non-Labored Spontaneous Respiratory Depth Normal Normal Respiratory Pattern Regular Regular Blood Pressure [Right Arm] 137/93 134/86 Blood Pressure Mean [Right Arm] 107 102 Pulse Oximetry 100 98 Oxygen Delivery Method Room Air Room Air VITAL SIGNS - Vital signs and nursing notes were reviewed. Stable and afebrile. GENERAL -64-year-old male appearing his stated age who is in no acute distress. Communicates well with provider and answers questions appropriately. SKIN -there is erythema to the left lower extremity predominantly between the left knee and left foot region. There are several chronic appearing wounds to the left lower extremity. There is no lymphangitic streaking however there is reported discomfort tracking from the left calf area medially to the left groin without reproduction of this via palpation on assessment HEAD - NC/AT. EYES - Sclera anicteric. NOSE - Midline and without cyanosis. No epistaxis or purulent drainage noted. MOUTH/OROPHARYNX - Without perioral cyanosis. NECK - No nuchal rigidity. LUNGS - CTA CARDIAC - RRR EXTREMITIES - No clubbing or peripheral cyanosis. Skin as above. There is left lower extremity edema present throughout the left calf region with circumferential erythema noted. No lymphangitic streaking. No crepitus. No purulence or drainage to culture. +5/5 strength noted in UE/LE bilaterally. Left dorsalis pedis pulse within normal limits. Left lower extremity appropriately warm and well-perfused. NEUROLOGIC -sensory intact to light touch throughout the left lower extremity without deficit PSYCH -alert, oriented and pleasant on exam. Course Administered Medications Acetaminophen (Acetaminophen 325 Mg Tab) 650 mg PO Q4H PRN PRN Reason: Pain or Fever Stop: 10/18/24 22:34 Last Admin: 09/19/24 15:56 Dose: 650 mg Documented By: Admin: 09/19/24 07:39 Dose: 650 mg Documented By: Admin: 09/18/24 23:55 Dose: 650 mg Documented By: [id number] Albuterol (Albuterol Hfa 8 Gm Inhaler) 2 puffs INH QIDR CHARLY Stop: 10/18/24 22:34 Last Admin: 09/19/24 12:54 Dose: 2 puffs Documented By: Admin: 09/19/24 12:52 Dose: Not Given Documented By: Admin: 09/19/24 07:13 Dose: 2 puffs Documented By: Admin: 09/18/24 23:33 Dose: 2 puffs Documented By: [email or web address] Aspirin (Aspirin 81 Mg Ectab) 81 mg PO HS CHARLY Stop: 10/18/24 22:34 Last Admin: 09/18/24 23:47 Dose: 81 mg Documented By: [id number] Fluticasone/Vilanterol (Fluticasone/Vilanterol 100/25mcg 14 Puffs/Inhaler) 1 puffs INH DAILY CHARLY; Protocol Stop: 10/19/24 08:59 Last Admin: 09/19/24 08:41 Dose: 1 puffs Documented By: RACHELE Gemfibrozil (Gemfibrozil 600 Mg Tab) 600 mg PO BID CHARLY Stop: 10/18/24 22:34 Last Admin: 09/19/24 08:40 Dose: 600 mg Documented By: Admin: 09/18/24 23:47 Dose: 600 mg Documented By: [id number] Heparin Sodium (Porcine) (Heparin Sod 5,000 Unit/0.5 Ml Vial) 5,000 units SQ Q12 CHARLY Stop: 10/18/24 22:34 Last Admin: 09/19/24 08:39 Dose: 5,000 units Documented By: Admin: 09/18/24 23:49 Dose: 5,000 units Documented By: [id number] Piperacillin Sod/Tazobactam Sod (Zosyn) 4.5 gm in 100 mls @ 25 mls/hr IV Q8H CHARLY; Protocol Stop: 09/26/24 00:00 Last Admin: 09/19/24 15:56 Dose: 25 mls/hr Documented By: Infusion: 09/19/24 12:44 Dose: Infused Documented By: Admin: 09/19/24 08:40 Dose: 25 mls/hr Documented By: Infusion: 09/19/24 04:05 Dose: Infused Documented By: [id number] Admin: 09/18/24 23:49 Dose: 25 mls/hr Documented By: [id number] Insulin Aspart (Insulin Aspart Per Unit Charge) 0 units SC ACHS CHARLY Stop: 10/18/24 22:34 Last Admin: 09/19/24 13:07 Dose: 8 units Documented By: RACHELE Co-signed By: LATISHA Admin: 09/19/24 09:40 Dose: 6 units Documented By: RACHELE Co-signed By: SEBASTIAN Admin: 09/18/24 23:55 Dose: 3 units Documented By: [id number] Co-signed By: ANNA Insulin Glargine (Lantus Per Unit Charge) 80 units SQ PM CHARLY Stop: 10/18/24 22:34 Last Admin: 09/18/24 23:49 Dose: 80 units Documented By: [id number] Co-signed By: ANNA Magnesium Oxide (Magnesium Oxide 400 Mg Tab) 400 mg PO HS CHARLY Stop: 10/18/24 22:34 Last Admin: 09/18/24 23:48 Dose: 400 mg Documented By: [id number] Montelukast Sodium (Montelukast Sodium 10 Mg Tablet) 10 mg PO HS CHARLY Stop: 10/18/24 22:34 Last Admin: 09/18/24 23:47 Dose: 10 mg Documented By: [id number] Vitamin D (Cholecalciferol 125 Mcg (5,000 Units) Tab) 125 mcg PO HS CHARLY Stop: 10/18/24 22:34 Last Admin: 09/18/24 23:48 Dose: 125 mcg Documented By: [id number] Discontinued Medications Daptomycin 425 mg/ Syringe 8.5 mls @ 4.25 mls/min IV NOW STA; Protocol Stop: 09/18/24 18:33 Last Admin: 09/18/24 19:46 Dose: 4.25 mls/min Documented By: [email or web address] Piperacillin Sod/Tazobactam Sod (Zosyn) 4.5 gm in 100 mls @ 200 mls/hr IV NOW ONE; Protocol Stop: 09/18/24 19:01 Last Infusion: 09/18/24 19:15 Dose: Infused Documented By: Admin: 09/18/24 18:45 Dose: 200 mls/hr Documented By: LESTER Medical Decision Making Laboratory Data 09/19/24 05:45 09/19/24 05:45 Lab Results 09/18/24 09/18/24 Range/Units 18:10 19:47 WBC 6.26 (4.8-10.8) K/ul RBC 4.94 (4.70-6.10) M/uL Hgb 14.2 (14.0-18.0) g/dl Hct 41.1 L (42.0-52.0) % MCV 83.2 (80.0-100.0) fL MCH 28.7 (25.0-34.0) pg MCHC 34.5 (32.0-36.0) g/dL RDW Std Deviation 43.9 (36.4-46.3) fL RDW Coeff of James 14.4 (11.5-14.5) % Plt Count 145 (130-400) K/uL MPV 10.2 (9.4-12.4) fL Immature Gran % (Auto) 0.5 % Neut % (Auto) 68.3 % Lymph % (Auto) 17.3 % Carl[place] % (Auto) 11.5 % Eos % (Auto) 2.1 % Baso % (Auto) 0.3 % Neut # (Auto) 4.28 (1.40-6.50) K/uL Lymph # (Auto) 1.08 L (1.20-3.40) K/uL Carl[place] # (Auto) 0.72 H (0.11-0.59) K/uL Eos # (Auto) 0.13 (0.00-0.50) K/uL Baso # (Auto) 0.02 (0.00-0.20) K/uL Immature Gran # (Auto) 0.03 (0.01-0.20) K/uL Sodium 138 (136-145) mmol/L Potassium 3.8 (3.5-5.1) mmol/L Chloride 102 (98-107) mmol/L Carbon Dioxide 27 (21-32) mmol/L Anion Gap 9 (3-11) BUN 26 H (6-23) mg/dl Creatinine 1.19 (0.6-1.4) mg/dl Est Cr Clr Drug Dosing 90.2 ml/min eGFR 67.37 BUN/Creatinine Ratio 21.8 H (10-20) Glucose 187 H (70-99(Fasting)) mg/dl Lactate 1.6 (0.4-2.0) mmol/L Calcium 9.4 (8.6-10.3) mg/dl Total Bilirubin 0.5 (0.2-1.0) mg/dl AST 32 (13-39) U/L ALT 36 (7-52) U/L Alkaline Phosphatase 86 (34-104) U/L Total Protein 6.9 (6.0-8.3) gm/dl Albumin 3.9 (3.4-5.0) gm/dl Globulin 3.0 (2.5-4.0) gm/dl Albumin/Globulin Ratio 1.3 (0.9-2) Procalcitonin 1.07 H (0-0.5) ng/ml Nasal Screen MRSA (PCR) Negative (Negative) Imaging Data Radiologist's Impression: Venous Doppler Study 09/18/24 16:19 EXAM: US Duplex Left Lower Extremity Veins INDICATION: Pain. TECHNIQUE: Real-time duplex ultrasound scan of the left lower extremity veins integrating B-mode two-dimensional vascular structure, Doppler spectral analysis, color flow Doppler imaging and compression. COMPARISON: No relevant prior studies available. FINDINGS: Deep veins: No DVT in the visualized common femoral, femoral or popliteal veins. The veins demonstrate normal color flow, are normally compressible, with normal phasic flow and/or augmentation response. Superficial veins: No abnormality noted. No thrombus in the visualized great saphenous vein. Soft tissues: No abnormality noted. IMPRESSION: No deep venous thrombosis of the left lower extremity. ACT 112: Negative or not required by law. Electronically signed by Galindo Anju 09-18-2024 5:15 PM MDM Narrative Patient was seen and evaluated as above in room D06. Review was performed of triage nursing notes and vital signs. Patient presents to us today for evaluation of left lower extremity erythema and edema. No fever. Physical examination concerning for that of cellulitis to the left lower extremity. No signs of systemic illness. Options of care were discussed with the patient. Patient did present during period of elevated volume and acuity in emergency department and did undergo testing prior to my assessment to include left lower extremity Doppler study. I did review the study and there is no DVT. IV access was established. Labs were drawn. There is no leukocytosis or concerning anemia. Mild elevation of BUN at 26. Hyperglycemia 187. Lactate normal. Procalcitonin returned elevated at 1.07 consistent with concern for left lower extremity infection. I will start the patient on broad-spectrum antibiotics noting speed of the developing infection as well as the distribution/extent. Will start with IV Zosyn plus daptomycin. Case discussed with the hospitalist service. Please refer to further documentation regarding his stay. In the evaluation and treatment of this patient the following differential diagnoses were entertained: Cellulitis, abscess, necrotizing fasciitis, DVT, among others Attending Attestation: I Kishan Bennett MD I have reviewed the advanced practitioner's documentation and agree with the plan of care. Concern for cellulitis. With negative dvt study. Given co-morbidites admitted. I accept the responsibility for the associated risk of managing the patient. I performed a substantive portion of the visit including involvement in all aspects of medical decision making. Impression & Plan Cellulitis of left leg, Elevated procalcitonin, Hyperglycemia Discharge Plan Visit Data Chief Complaint: Swelling/Edema to Extremity Stated Complaint: L LEG SWELLING, WARM TO THE TOUCH, DR REFERRED ED Provider: Kishan Bennett ED Midlevel Provider: Alphonso Dempsey Discharge Problem: Cellulitis of left leg, Elevated procalcitonin, Hyperglycemia Patient Disposition: Admitted As Inpatient Condition: Good Discharge Instructions Interventions: ED Discharge Assessment Last Done: 09/18/24 22:04
[2024-09-18 18:43] LABS: Basophils # (auto) 0.02 K/uL (0.00-0.20); Basophils % (auto) 0.3 %; Eosinophils # (auto) 0.13 K/uL (0.00-0.50); Eosinophils % (auto) 2.1 %; Hematocrit (blood only) 41.1 % (42.0-52.0); Hemoglobin 14.2 g/dl (14.0-18.0); Immature Granulocytes # (auto) 0.03 K/uL (0.01-0.20); Immature Granulocytes % (auto) 0.5 %; Lymphocytes # (auto) 1.08 K/uL (1.20-3.40); Lymphocytes % (auto) 17.3 %; Mean Corpuscular Hemoglobin 28.7 pg (25.0-34.0); Mean Corpuscular Hgb Conc 34.5 g/dL (32.0-36.0); Mean Corpuscular Volume 83.2 fL (80.0-100.0); Mean Platelet Volume 10.2 fL (9.4-12.4); Monocytes # (auto) 0.72 K/uL (0.11-0.59); Monocytes % (auto) 11.5 %; Neutrophils # (auto) 4.28 K/uL (1.40-6.50); Neutrophils % (auto) 68.3 %; Platelet Count 145 K/uL (130-400); RDW Coefficient of Variation 14.4 % (11.5-14.5); RDW Standard Deviation 43.9 fL (36.4-46.3); Red Blood Count 4.94 M/uL (4.70-6.10); White Blood Count 6.26 K/ul (4.8-10.8)
[2024-09-18] MEDS: PIPERACILLIN/TAZOBACTAM 4.5 GM/100 ML BAG IV ONE (18:45)
[2024-09-18 18:56] LABS: Albumin Globulin Ratio 1.3 (0.9-2); Albumin Level 3.9 gm/dl (3.4-5.0); BUN Creatinine Ratio 21.8 (10-20); Bilirubin,Total 0.5 mg/dl (0.2-1.0); Calcium 9.4 mg/dl (8.6-10.3); Creatinine Clr Calc Pharmacy 90.2 ml/min; Potassium 3.8 mmol/L (3.5-5.1); Total Protein 6.9 gm/dl (6.0-8.3)
[2024-09-18] MEDS: DAPTOmycin 425 MG in SYRINGE 0 ML IV STA (19:46)
--- NOTE | 2024-09-18 20:02 | History & Physical Report ---
Date of Service September 18, 2024 Assessment & Plan (1) Cellulitis of left leg: (2) Type 2 diabetes mellitus, with long-term current use of insulin: (3) Type 2 diabetes mellitus with complications: (4) Asthma: (5) Hypertension: Plan Cellulitis of left lower extremity- Generalized erythema, tenderness, edema and warmth, with localized areas of infection, similar to that seen with MRSA. MRSA swab nasally was negative, but does not rule out infection lower extremity Daptomycin IV and Zosyn IV Follow clinical response Will not diurese, however, will also not placed on IV fluids Left lower extremity Doppler negative for DVT Diabetes mellitus- Glucose 187 on admission Hold Jardiance Change Toujeo insulin 120 units at bedtime to glargine 80 units SQ at bedtime Placed on Accu-Cheks with NovoLog SSI Check hemoglobin A1c Asthma/ISHAAN- Patient does report an intermittent productive cough, it has been ongoing for a few weeks Change Symbicort to Breo Ellipta 1 inhalation daily for formulary interchange Ventolin HFA 2 puffs 4 times daily DuoNebs every 2 hours as needed Continue Singulair, which patient reports has improved his lung status significantly started a few years ago History of Present Illness Chief Complaint: The patient is referred to the emergency department by his outpatient physician, due to worsening left lower extremity pain, swelling and redness, similar to previous infection in the past. Primary Care Provider: Rakesh Lowery MD The patient is a 64-year-old male with a past medical history including hyperlipidemia, metabolic syndrome, first-degree AV block, hypertension, diabetes mellitus type 2 on long-term insulin, obstructive sleep apnea, diabetic peripheral neuropathy, GERD, and asthma. He presents to the emergency department due to worsening left lower extremity swelling, redness, warmth and pain that began yesterday, and worsened throughout the day today. Allergies Allergy/AdvReac Type Severity Reaction Status Date / Time mold Allergy Unknown ALLERGY Verified 09/18/24 15:19 SYMPTOMS hydrochlorothiazide AdvReac Severe Hyperglycem Verified 09/18/24 15:19 ia lisinopril AdvReac Cough Verified 09/18/24 15:19 Home Medications Medication Instructions Recorded Confirmed Type aspirin 81 mg tablet,delayed 81 mg PO HS 02/22/19 09/18/24 History release magnesium oxide 500 mg PO HS 06/13/21 09/18/24 History ibuprofen 200 mg tablet (Advil) 800 mg PO Q6H PRN Pain 03/31/22 09/18/24 History gemfibrozil 600 mg tablet 600 mg PO BID #180 tabs 09/13/23 09/18/24 Rx blood sugar diagnostic (OneTouch #500 ea 11/02/23 09/18/24 Rx Verio test strips) losartan 100 mg tablet 100 mg PO HS #90 tabs 02/07/24 09/18/24 Rx pen needle, diabetic 31 gauge x #1,200 ea 03/19/24 09/18/24 Rx 3/16" (BD Ultra-Fine Mini Pen Needle) furosemide 40 mg tablet (Lasix) 40 mg PO DAILY PRN edema #90 tabs 03/26/24 09/18/24 Rx potassium chloride 20 mEq 40 meq (2 x 20 mEq) PO DAILY PRN 03/26/24 09/18/24 Rx tablet,extended release(part/cryst) with FUROSEMIDE #180 tabs insulin glargine U-300 conc 300 120 unit (0.4 mL) subcut HS #36 mL 05/02/24 09/18/24 Rx unit/mL (1.5 mL) subcutaneous pen (Toujeo SoloStar U-300 Insulin) montelukast 10 mg tablet 10 mg PO HS #90 tabs 09/03/24 09/18/24 Rx (Singulair) cholecalciferol (vitamin D3) 50 50 mcg PO HS 09/18/24 09/18/24 History mcg (2,000 unit) tablet (Vitamin D3) empagliflozin 25 mg tablet 25 mg PO HS 09/18/24 09/18/24 History (Jardiance) insulin lispro 100 unit/mL 0 unit subcut TID 09/18/24 09/18/24 History subcutaneous pen (Humalog KwikPen (U-100) Insulin) Past Med/Surg History Problem List (Updated 09/18/24 @ 22:04 by Alphonso Dempsey PA-C) Hyperglycemia (Acute) Elevated procalcitonin (Acute) Cellulitis of left leg (Acute) Refusal of statin medication by patient Anemia Diastolic heart failure Metabolic syndrome Microalbuminuria 1st degree AV block Lump of skin of left lower extremity Uncontrolled hypertension EKG abnormalities Neurodermatitis Low back pain Encounter for health maintenance examination Left knee pain Type 2 diabetes mellitus with complications (Chronic) Vitamin D insufficiency (Chronic) Type 2 diabetes mellitus, with long-term current use of insulin (Chronic) Sleep apnea (Chronic) CPAP HS Obesity, morbid, BMI 40.0-49.9 (Chronic) Not immune to hepatitis B virus (Chronic) Hypothyroidism (Chronic) Hypertension (Chronic ~07/2021) Dyslipidemia (Chronic) Diabetic peripheral neuropathy associated with type 2 diabetes mellitus (Chronic) Claustrophobia (Chronic) GERD (gastroesophageal reflux disease) (Chronic) Asthma (Chronic) Medical History Left leg pain Edema Muscle stiffness SOB (shortness of breath) History of right inguinal hernia CHF (congestive heart failure) Left upper lobe pneumonia Chest pain Breathlessness Diabetes mellitus type 2, controlled Dysesthesia Asthmatic bronchitis Pancreatitis Diabetes Surgical History Numbness and tingling in right hand HX-POST OP WITH HERNIA SURGERY 04/2018 AT [facility] [place] DIAGNOSED A RESULT PRESSURE ON NERVE TO HAND INTRAOP PER PT-FULL SENSATION HAS RETURNED History of tonsillectomy History of colonoscopy History of esophagogastroduodenoscopy (EGD) S/P tooth extraction S/P hernia repair Status post laparoscopic cholecystectomy Family History Grandmother Cardiac disorder Mother Stroke Father Diabetes Cancer Prostate cancer Denies family history of Ovarian cancer Myocardial infarction Breast cancer Colorectal cancer Social History Smoking Status: Never smoker Second Hand Exposure: No; Do You Dip or Chew Tobacco: No; Hx Alcohol Use: Yes Alcohol type: hard liquor Hx Substance Use: No Preferred Language: Upper Sorbian Communication Ability: Effective Visual Impairment: No Limitations Hearing Ability: Normal Structural Analysis Engineer Required: No Beliefs That Will Affect Care: None marital status: Current Living Situation: Spouse Current Living Situation Comment: with current occupational status: employed Other Information That Helps Us Care for You: No Feels Safe at Home: Yes Safety Concerns: Feels Safe At This Time Seatbelt Use: always Assistive Devices: CPAP and Glasses Review of Systems Review of Systems: The patient denies chest pain, palpitations, shortness of breath, dyspnea on exertion, sore throat, fevers, chills, sweats, nausea, vomiting, diarrhea , constipation, abdominal pain, pelvic pain, blood in urine or stool, dysuria, urinary frequency or urgency, lightheadedness, dizziness, headache, memory loss, loss of consciousness, abnormal bruising or bleeding, focal or generalized weakness, numbness or tingling in arms, generalized arthralgias or myalgias, back or neck pain, or night sweats. The review of systems is otherwise negative other than for that already noted above, and at least 10 systems have been reviewed. Physical Exam Physical Exam: The patient is awake, alert and oriented 3, well developed and well nourished, normocephalic and atraumatic, lying in bed and in no acute distress. HEENT--PERRL, EOMI, mucous membranes and oropharynx mildly dry. Neck--supple. No JVD. No bruits. Thyroid normal, trachea midline, no adenopathy. Heart--normal S1 and S2. No murmurs, rubs or gallops. Lungs--clear bilaterally, no respiratory distress, no accessory muscle use. Abdomen--normal bowel sounds and soft. Nontender. Nondistended. Morbidly obese Extremities--right lower extremity with 1+ pretibial and pedal pitting edema. Left lower extremity with 2+ pretibial and pedal pitting edema, and mild to moderate erythema, with small oval and circular areas of scarring and more focally intense infection. Dermatologic--see above Neurologic--cranial nerves II through XII grossly intact. Rheumatologic--normal range of motion. Psychiatric--normal affect. Results & Data Results & Data Vital Signs (Past 12 Hours) Vital Signs Temp Pulse Pulse Resp BP BP Pulse Ox 09/18/24 18:42 68 16 137/93 100 09/18/24 16:15 36.6 C 84 18 166/81 H 97 O2 Del Method 09/18/24 18:42 Room Air 09/18/24 16:15 Room Air Laboratory Results Laboratory Results WBC 6.26 K/ul (4.8-10.8) 09/18/24 18:10 RBC 4.94 M/uL (4.70-6.10) 09/18/24 18:10 Hgb 14.2 g/dl (14.0-18.0) 09/18/24 18:10 Hct 41.1 % (42.0-52.0) L 09/18/24 18:10 MCV 83.2 fL (80.0-100.0) 09/18/24 18:10 MCH 28.7 pg (25.0-34.0) 09/18/24 18:10 MCHC 34.5 g/dL (32.0-36.0) 09/18/24 18:10 RDW Std Deviation 43.9 fL (36.4-46.3) 09/18/24 18:10 RDW Coeff of James 14.4 % (11.5-14.5) 09/18/24 18:10 Plt Count 145 K/uL (130-400) 09/18/24 18:10 MPV 10.2 fL (9.4-12.4) 09/18/24 18:10 Immature Gran % (Auto) 0.5 % 09/18/24 18:10 Neut % (Auto) 68.3 % 09/18/24 18:10 Lymph % (Auto) 17.3 % 09/18/24 18:10 [place] % (Auto) 11.5 % 09/18/24 18:10 Eos % (Auto) 2.1 % 09/18/24 18:10 Baso % (Auto) 0.3 % 09/18/24 18:10 Neut # (Auto) 4.28 K/uL (1.40-6.50) 09/18/24 18:10 Lymph # (Auto) 1.08 K/uL (1.20-3.40) L 09/18/24 18:10 [place] # (Auto) 0.72 K/uL (0.11-0.59) H 09/18/24 18:10 Eos # (Auto) 0.13 K/uL (0.00-0.50) 09/18/24 18:10 Baso # (Auto) 0.02 K/uL (0.00-0.20) 09/18/24 18:10 Immature Gran # (Auto) 0.03 K/uL (0.01-0.20) 09/18/24 18:10 Sodium 138 mmol/L (136-145) 09/18/24 18:10 Potassium 3.8 mmol/L (3.5-5.1) 09/18/24 18:10 Chloride 102 mmol/L (98-107) 09/18/24 18:10 Carbon Dioxide 27 mmol/L (21-32) 09/18/24 18:10 Anion Gap 9 (3-11) 09/18/24 18:10 BUN 26 mg/dl (6-23) H 09/18/24 18:10 Creatinine 1.19 mg/dl (0.6-1.4) 09/18/24 18:10 Est Cr Clr Drug Dosing 90.2 ml/min 09/18/24 18:10 eGFR 67.37 09/18/24 18:10 BUN/Creatinine Ratio 21.8 (10-20) H 09/18/24 18:10 Glucose 187 mg/dl (70-99(Fasting)) H 09/18/24 18:10 POC Glucose 134 mg/dl (70-99) H 09/18/24 22:31 Lactate 1.6 mmol/L (0.4-2.0) 09/18/24 18:10 Calcium 9.4 mg/dl (8.6-10.3) 09/18/24 18:10 Total Bilirubin 0.5 mg/dl (0.2-1.0) 09/18/24 18:10 AST 32 U/L (13-39) 09/18/24 18:10 ALT 36 U/L (7-52) 09/18/24 18:10 Alkaline Phosphatase 86 U/L (34-104) 09/18/24 18:10 Total Protein 6.9 gm/dl (6.0-8.3) 09/18/24 18:10 Albumin 3.9 gm/dl (3.4-5.0) 09/18/24 18:10 Globulin 3.0 gm/dl (2.5-4.0) 09/18/24 18:10 Albumin/Globulin Ratio 1.3 (0.9-2) 09/18/24 18:10 Procalcitonin 1.07 ng/ml (0-0.5) H 09/18/24 18:10 Nasal Screen MRSA (PCR) Negative (Negative) 09/18/24 19:47 Impressions Venous Doppler Study 09/18/24 16:19 EXAM: US Duplex Left Lower Extremity Veins INDICATION: Pain. TECHNIQUE: Real-time duplex ultrasound scan of the left lower extremity veins integrating B-mode two-dimensional vascular structure, Doppler spectral analysis, color flow Doppler imaging and compression. COMPARISON: No relevant prior studies available. FINDINGS: Deep veins: No DVT in the visualized common femoral, femoral or popliteal veins. The veins demonstrate normal color flow, are normally compressible, with normal phasic flow and/or augmentation response. Superficial veins: No abnormality noted. No thrombus in the visualized great saphenous vein. Soft tissues: No abnormality noted. IMPRESSION: No deep venous thrombosis of the left lower extremity. ACT 112: Negative or not required by law. Electronically signed by Anju Galindo 09-18-2024 5:15 PM Code Status & VTE Plan Code Status Full code VTE Prophylaxis Plan VTE Prophylaxis will be ordered: Yes PG Care Time/CCT Total # of Minutes Spent Total Time Spent with Patient: Total time spent is greater than 50% in coordination of care (as documented) at patient's floor/unit and/or counseling patient: Coding Level of Care Code 50570 INT INP/OBS CARE 3/75MIN Diagnoses Cellulitis of left leg L03.116 Type 2 diabetes mellitus with microalbuminuria, with long-term current use of insulin E11.29; R80.9; Z79.4 Diabetes mellitus complication status: with kidney complications Diabetes mellitus complication detail: with microalbuminuria Type 2 diabetes mellitus with complications E11.8 Asthma J45.909 Hypertension I10 (2) Type 2 diabetes mellitus, with long-term current use of insulin Diabetes mellitus complication status: with kidney complications Diabetes mellitus complication detail: with microalbuminuria Qualified Code(s): E11.29 - Type 2 diabetes mellitus with other diabetic kidney complication; R80.9 - Proteinuria, unspecified; Z79.4 - predatory animal exterminator (current) use of insulin
[2024-09-18] MEDS ORDERED: DEXTROSE 50% 50 ML SYRINGE IV PRN (22:35)
[2024-09-18] MEDS ORDERED: ALBUT/IPRATROP 3MG/0.5MG NEB 3 ML VIAL NEB PRN (22:35)
[2024-09-18] MEDS ORDERED: ONDANSETRON INJ 2 MG/ML 2 ML VIAL IV PRN (22:35)
[2024-09-18] MEDS ORDERED: GLUCOSE 40% GEL 15 GM TUBE PO PRN (22:35)
[2024-09-18] MEDS ORDERED: CARBOHYDRATES FOR HYPOGLYCEMIA PO PRN (22:35)
[2024-09-18] MEDS ORDERED: GLUCOSE 10 TAB/TUBE PO PRN (22:35)
[2024-09-18] MEDS ORDERED: GLUCAGON FOR INJ 1 MG VIAL SQ PRN (22:35)
[2024-09-18] MEDS: ALBUTEROL HFA 8 GM INHALER INH SCH (23:33)
[2024-09-18] MEDS: ASPIRIN 81 MG ECTAB PO SCH (23:47)
[2024-09-18] MEDS: MONTELUKAST SODIUM 10 MG TABLET PO SCH (23:47)
[2024-09-18] MEDS: gemfibroziL 600 MG TAB PO SCH (23:47)
[2024-09-18] MEDS: CHOLECALCIFEROL 125 MCG (5,000 UNITS) TAB PO SCH (23:48)
[2024-09-18] MEDS: MAGNESIUM OXIDE 400 MG TAB PO SCH (23:48)
[2024-09-18] MEDS: PIPERACILLIN/TAZOBACTAM 4.5 GM/100 ML BAG IV SCH (23:49)
[2024-09-18] MEDS: LANTUS PER UNIT CHARGE SQ SCH (23:49)
[2024-09-18] MEDS: HEPARIN SOD 5,000 UNIT/0.5 ML VIAL SQ SCH (23:49)
[2024-09-18] MEDS: INSULIN ASPART PER UNIT CHARGE SC SCH (23:55)
[2024-09-18] MEDS: ACETAMINOPHEN 325 MG TAB PO PRN (23:55)
[2024-09-19 06:47] LABS: Basophils # (auto) 0.02 K/uL (0.00-0.20); Basophils % (auto) 0.3 %; Eosinophils # (auto) 0.22 K/uL (0.00-0.50); Eosinophils % (auto) 3.8 %; Hematocrit (blood only) 38.3 % (42.0-52.0); Immature Granulocytes # (auto) 0.03 K/uL (0.01-0.20); Immature Granulocytes % (auto) 0.5 %; Lymphocytes # (auto) 1.09 K/uL (1.20-3.40); Lymphocytes % (auto) 18.6 %; Mean Corpuscular Hemoglobin 28.2 pg (25.0-34.0); Mean Corpuscular Hgb Conc 33.9 g/dL (32.0-36.0); Mean Corpuscular Volume 83.1 fL (80.0-100.0); Mean Platelet Volume 10.2 fL (9.4-12.4); Monocytes # (auto) 0.67 K/uL (0.11-0.59); Monocytes % (auto) 11.5 %; Neutrophils # (auto) 3.82 K/uL (1.40-6.50); Neutrophils % (auto) 65.3 %; Platelet Count 135 K/uL (130-400); RDW Coefficient of Variation 14.4 % (11.5-14.5); RDW Standard Deviation 43.1 fL (36.4-46.3); Red Blood Count 4.61 M/uL (4.70-6.10); White Blood Count 5.85 K/ul (4.8-10.8)
[2024-09-19 07:13] LABS: Albumin Level 3.5 gm/dl (3.4-5.0); Calcium 8.6 mg/dl (8.6-10.3); Creatinine Clr Calc Pharmacy 104.8 ml/min; Magnesium 2.4 mg/dl (1.7-2.4); Phosphorus 4.6 mg/dl (2.5-4.9); Potassium 3.7 mmol/L (3.5-5.1)
[2024-09-19 08:20] LABS: Estimated Average Glucose 166 mg/dl; Hemoglobin A1C 7.4 % (4.5-5.6)
[2024-09-19] MEDS: FLUTICASONE/VILANTEROL 100/25MCG 14 PUFFS/INHALER INH SCH (08:41)
--- NOTE | 2024-09-19 11:59 | Hospitalist Progress Note ---
Date of Service September 19, 2024 Assessment & Plan (1) Cellulitis of left leg: Plan: Presented with worsening LLE pain, swelling, redness x 1 day. [facility], but was recommended to come to ED for venous doppler - On admission, LLE with generalized erythema, tenderness, edema and warmth, with localized areas of infection, similar to that seen with MRSA - MRSA swab nasally was negative, but does not rule out infection lower extremity - Venous Doppler negative for DVT - Blood cultures negative x 24 hours - Continue Daptomycin IV and Zosyn IV - Clinical improvement with erythema reduced from previously marked border (2) Type 2 diabetes mellitus with complications: Plan: Glucose 187 on admission Hold Jardiance Change Toujeo insulin 120 units at bedtime to glargine 80 units SQ at bedtime Placed on Accu-Cheks with NovoLog SSI Hemoglobin A1c 7.4% (3) Asthma: Plan: Patient does report an intermittent productive cough, states this is baseline for him and no other acute respiratory symptoms Change Symbicort to Breo Ellipta 1 inhalation daily for formulary interchange Ventolin HFA 2 puffs 4 times daily DuoNebs every 2 hours as needed Continue Singulair, which patient reports has improved his lung status significantly started a few years ago Sputum culture prelim showing light normal kerry (4) Hypertension: Plan: BPs somewhat elevated here losartan and prn lasix from home on hold-can likely resume losartan tomorrow Plan VTE PPx: Heparin CODE STATUS: Full code Admission and Anticipated Discharge Date Admission Date: September 18, 2024 Supervising Physician Co-Signing Physician Notes PA Supervision Note: I did not personally see or examine the patient today, but I verified all renteria points of GEORGIE Finnegan's assessment and plan with the following exceptions/additions: None Subjective Patient seen and evaluated at bedside. He reports improvement in his LLE. He notes his pain is currently 3/10 but does feel "tightness" of his LLE. He is well-tolerating antibiotics. Denies abdominal pain, nausea, diarrhea, shortness of breath, chest pain, headache. He reports ambulating without difficulty. He reports chronic intermittent cough, no acute respiratory symptoms. Discussed continued IV antibiotics today and possibly discharge tomorrow on oral antibiotics. No additional complaints or concerns at this time. Physical Exam Physical Exam: General: No acute distress, nondiaphoretic, well-developed, well-nourished. Skin: The skin was without rashes, erythema, edema, or bruising. Cardiac: Regular rate and rhythm without murmurs gallops or rubs. Pulm: Clear to auscultation bilaterally without wheezes, rales or rhonchi. No respiratory distress. 98% on room air. Abdominal: Soft, nontender, distended secondary to body habitus. Bowel sounds present. Neuro: A&O x3. No focal neurological deficits. LLE: Circumferential erythema reduced from previously marked borders. 2+ pitting edema. Multiple small oval and circular areas of scarring. Sensation intact to light touch. No drainage or weeping noted. Results & Data Results & Data Vital Signs (Past 12 Hours) Vital Signs Temp Pulse Pulse Resp BP Pulse Ox O2 Del Method 09/19/24 11:46 97.9 F 61 16 136/83 98 Room Air 09/19/24 07:56 97.5 F L 61 16 134/77 99 Room Air 09/19/24 07:13 77 18 97 Room Air 09/19/24 07:00 63 09/19/24 03:30 98.1 F 76 18 146/82 H 96 Room Air Laboratory Results Reviewed CBC Reviewed CMP Reviewed blood and sputum cultures PG Care Time/CCT Total # of Minutes Spent Total Time Spent with Patient: Total time spent is greater than 50% in coordination of care (as documented) at patient's floor/unit and/or counseling patient: Coding Level of Care Code 32262 SUB INP/OBS CARE 2/35MIN Diagnoses Cellulitis of left leg L03.116 Type 2 diabetes mellitus with complications E11.8 Asthma J45.909 Hypertension I10
[2024-09-19] MEDS: DAPTOmycin 425 MG in SYRINGE 0 ML IV SCH (18:10)
[2024-09-19] MEDS: HYDROmorphone INJ 0.5 MG/0.5 ML SYR IV STA (21:52)
[2024-09-19] MEDS: MoRPHine SULFATE 2 MG/ML CARP IV STA (22:32)
[2024-09-20] MEDS: HYDROmorphone INJ 0.5 MG/0.5 ML SYR IV STA (00:57)
[2024-09-20 06:33] LABS: Basophils # (auto) 0.02 K/uL (0.00-0.20); Basophils % (auto) 0.3 %; Eosinophils # (auto) 0.23 K/uL (0.00-0.50); Eosinophils % (auto) 2.9 %; Hematocrit (blood only) 39.9 % (42.0-52.0); Hemoglobin 13.4 g/dl (14.0-18.0); Immature Granulocytes # (auto) 0.06 K/uL (0.01-0.20); Immature Granulocytes % (auto) 0.8 %; Lymphocytes # (auto) 1.02 K/uL (1.20-3.40); Lymphocytes % (auto) 12.8 %; Mean Corpuscular Hemoglobin 28.1 pg (25.0-34.0); Mean Corpuscular Hgb Conc 33.6 g/dL (32.0-36.0); Mean Corpuscular Volume 83.6 fL (80.0-100.0); Mean Platelet Volume 9.9 fL (9.4-12.4); Monocytes # (auto) 0.73 K/uL (0.11-0.59); Monocytes % (auto) 9.1 %; Neutrophils # (auto) 5.94 K/uL (1.40-6.50); Neutrophils % (auto) 74.1 %; Platelet Count 142 K/uL (130-400); RDW Coefficient of Variation 14.2 % (11.5-14.5); RDW Standard Deviation 43.5 fL (36.4-46.3); Red Blood Count 4.77 M/uL (4.70-6.10)
[2024-09-20 07:04] LABS: Albumin Level 3.6 gm/dl (3.4-5.0); BUN Creatinine Ratio 17.4 (10-20); Calcium 8.6 mg/dl (8.6-10.3); Creatinine Clr Calc Pharmacy 99.9 ml/min; Magnesium 2.3 mg/dl (1.7-2.4); Phosphorus 3.2 mg/dl (2.5-4.9); Potassium 4.2 mmol/L (3.5-5.1)
[2024-09-20] MEDS: LOSARTAN POTASSIUM 50 MG TAB PO SCH (09:04)
[2024-09-20] MEDS: traMADol HCL 50 MG TABLET PO PRN (09:27)
--- NOTE | 2024-09-20 11:01 | Hospitalist Progress Note ---
Date of Service September 20, 2024 Assessment & Plan (1) Cellulitis of left leg: Plan: Presented with worsening LLE pain, swelling, redness x 1 day. [facility], but was recommended to come to ED for venous doppler - On admission, LLE with generalized erythema, tenderness, edema and warmth, with localized areas of infection, similar to that seen with MRSA - MRSA swab nasally was negative, but does not rule out infection lower extremity - Venous Doppler negative for DVT - Blood cultures negative x 24 hours - Pain not controlled with Tylenol -- started Tramadol 50 mg Q4H PRN - No improvement in infection compared to 09/19 - Continue Daptomycin IV and Zosyn IV (2) Type 2 diabetes mellitus with complications: Plan: Glucose 187 on admission Hold Jardiance Change Toujeo insulin 120 units at bedtime to glargine 80 units SQ at bedtime Placed on Accu-Cheks with NovoLog SSI Hemoglobin A1c 7.4% (3) Asthma: Plan: Patient does report an intermittent productive cough, states this is baseline for him and no other acute respiratory symptoms Change Symbicort to Breo Ellipta 1 inhalation daily for formulary interchange Ventolin HFA 2 puffs 4 times daily DuoNebs every 2 hours as needed Continue Singulair, which patient reports has improved his lung status significantly started a few years ago Sputum culture prelim showing light normal kerry (4) Hypertension: Plan: BPs somewhat elevated here Losartan resumed PRN Lasix on hold Plan Resumed losartan Started tramadol VTE PPx: Heparin CODE STATUS: Full code Admission and Anticipated Discharge Date Admission Date: September 18, 2024 Supervising Physician Co-Signing Physician Notes GEORGIE Supervision Note: I did not personally see or examine the patient today, but I verified all renteria points of GEORGIE Finnegan's assessment and plan with the following exceptions/additions : None Subjective Patient seen and evaluated at bedside. He reports his pain is worse compared to yesterday. Last evening he required Dilaudid x 2 orders for pain control. He describes his pain as burning/achy, and worse when he stands. At rest his pain is tolerable. He reports one episode of loose bowel movement, but denies diarrhea, nausea, abdominal pain. No additional complaints or concerns at this time. Physical Exam Physical Exam: General: No acute distress, nondiaphoretic, well-developed, well-nourished. Skin: The skin was without rashes, erythema, edema, or bruising. Cardiac: Regular rate and rhythm without murmurs gallops or rubs. Pulm: Clear to auscultation bilaterally without wheezes, rales or rhonchi. No respiratory distress. 98% on room air. Abdominal: Soft, nontender, distended secondary to body habitus. Bowel sounds present. Neuro: A&O x3. No focal neurological deficits. LLE: Circumferential beefy red erythema reduced from previously marked borders, but about the same compared to yesterday. 1+ pitting edema. Multiple small oval and circular areas of scarring. Sensation intact to light touch. No drainage or weeping noted. Results & Data Results & Data Vital Signs (Past 12 Hours) Vital Signs Temp Pulse Pulse Resp BP Pulse Ox O2 Del Method 09/20/24 07:42 98.1 F 55 L 20 144/68 H 97 Room Air 09/20/24 07:22 73 18 98 Room Air 09/20/24 07:00 74 09/20/24 03:47 97.7 F 71 18 132/75 98 Room Air, CPAP 09/19/24 23:37 72 09/19/24 23:00 97.0 F L 72 18 137/73 97 Room Air, CPAP Laboratory Results Reviewed CBC Reviewed BMP PG Care Time/CCT Total # of Minutes Spent Total Time Spent with Patient: Total time spent is greater than 50% in coordination of care (as documented) at patient's floor/unit and/or counseling patient: Coding Level of Care Code 14600 SUB INP/OBS CARE 3/50MIN Diagnoses Cellulitis of left leg L03.116 Type 2 diabetes mellitus with complications E11.8 Asthma J45.909 Hypertension I10
[2024-09-20] MEDS ORDERED: ALBUTEROL HFA 8 GM INHALER INH PRN (13:54)
[2024-09-20] MEDS: INFLUENZA VACC TS2024-25(65y+)/PF (IIV3) 0.5mL Syr IM ONE (19:46)
[2024-09-21 07:35] LABS: Basophils # (auto) 0.02 K/uL (0.00-0.20); Basophils % (auto) 0.3 %; Eosinophils # (auto) 0.16 K/uL (0.00-0.50); Hematocrit (blood only) 38.9 % (42.0-52.0); Hemoglobin 13.3 g/dl (14.0-18.0); Immature Granulocytes % (auto) 1.3 %; Lymphocytes # (auto) 1.06 K/uL (1.20-3.40); Lymphocytes % (auto) 13.4 %; Mean Corpuscular Hemoglobin 28.8 pg (25.0-34.0); Mean Corpuscular Hgb Conc 34.2 g/dL (32.0-36.0); Mean Corpuscular Volume 84.2 fL (80.0-100.0); Mean Platelet Volume 9.9 fL (9.4-12.4); Monocytes % (auto) 8.9 %; Neutrophils # (auto) 5.86 K/uL (1.40-6.50); Neutrophils % (auto) 74.1 %; Platelet Count 152 K/uL (130-400); RDW Coefficient of Variation 14.3 % (11.5-14.5); Red Blood Count 4.62 M/uL (4.70-6.10)
[2024-09-21 07:52] LABS: Albumin Level 3.6 gm/dl (3.4-5.0); BUN Creatinine Ratio 15.4 (10-20); Calcium 8.6 mg/dl (8.6-10.3); Creatinine Clr Calc Pharmacy 93.1 ml/min; Magnesium 2.4 mg/dl (1.7-2.4); Phosphorus 2.8 mg/dl (2.5-4.9); Potassium 4.2 mmol/L (3.5-5.1)
--- NOTE | 2024-09-21 12:43 | Hospitalist Progress Note ---
Date of Service September 21, 2024 Assessment & Plan (1) Cellulitis of left leg: Plan: Presented with worsening LLE pain, swelling, redness x 1 day. [facility], but was recommended to come to ED for venous doppler - On admission, LLE with generalized erythema, tenderness, edema and warmth, with localized areas of infection, similar to that seen with MRSA - MRSA swab nasally was negative, but does not rule out infection lower extremity - Venous Doppler negative for DVT - Blood cultures negative x 48 hours - Continue tramadol 50 mg Q4H PRN for breakthrough pain - Continue Daptomycin IV and Zosyn IV - Improved compared to 09/20; continue IV antibiotics for additional day then anticipate discharge home with oral antibiotics 09/22 - Started probiotic while on antibiotics (2) Type 2 diabetes mellitus with complications: Plan: Glucose 187 on admission Hold Jardiance Change Toujeo insulin 120 units at bedtime to glargine 80 units SQ at bedtime Placed on Accu-Cheks with NovoLog SSI Hemoglobin A1c 7.4% (3) Asthma: Plan: Patient does report an intermittent productive cough, states this is baseline for him and no other acute respiratory symptoms Change Symbicort to Breo Ellipta 1 inhalation daily for formulary interchange Ventolin HFA 2 puffs 4 times daily DuoNebs every 2 hours as needed Continue Singulair, which patient reports has improved his lung status significantly started a few years ago Sputum culture prelim showing light normal kerry (4) Hypertension: Plan: BPs somewhat elevated here Losartan resumed PRN Lasix on hold Plan Started probiotic Dispo: continue IV antibiotics for another day; anticipate discharge home with oral antibiotics 09/22 VTE PPx: Heparin CODE STATUS: Full code Admission and Anticipated Discharge Date Admission Date: September 20, 2024 Supervising Physician Co-Signing Physician Notes PA Supervision Note: I did not personally see or examine the patient today, but I verified all renteria points of GEORGIE Finnegan's assessment and plan with the following exceptions/additions: None Subjective Patient seen and evaluated at bedside. He reports feeling slightly better today compared to yesterday. He notes that the stabbing pain he experienced yesterday has subsided. He does continue to have an achey/throbbing sensation at times. Surrounding warmth of LLE is improved today. He also notes 2 episodes of loose stools today; denies diarrhea, abdominal pain, nausea. Discussed starting probiotic and continuing IV antibiotics today with plan to discharge home tomorrow. No additional complaints or concerns at this time. Physical Exam Physical Exam: General: No acute distress, nondiaphoretic, well-developed, well-nourished. Skin: The skin was without rashes, erythema, edema, or bruising. Cardiac: Regular rate and rhythm without murmurs gallops or rubs. Pulm: Clear to auscultation bilaterally without wheezes, rales or rhonchi. No respiratory distress. 98% on room air. Abdominal: Soft, nontender, distended secondary to body habitus. Bowel sounds present. Neuro: A&O x3. No focal neurological deficits. LLE: Circumferential beefy red erythema reduced from previously marked borders, improving. 1+ pitting edema. Multiple small oval and circular areas of scarring. Sensation intact to light touch. No drainage or weeping noted. Warmth and swelling improved. Results & Data Results & Data Vital Signs (Past 12 Hours) Vital Signs Temp Pulse Pulse Resp BP Pulse Ox O2 Del Method 09/21/24 11:37 Room Air 09/21/24 07:35 99.0 F 60 20 118/70 98 Room Air 09/21/24 07:20 51 L 09/21/24 03:34 54 L 18 120/66 98 Room Air, CPAP Laboratory Results Reviewed CBC Reviewed BMP Reviewed blood cultures Reviewed sputum culture PG Care Time/CCT Total # of Minutes Spent Total Time Spent with Patient: Total time spent is greater than 50% in coordination of care (as documented) at patient's floor/unit and/or counseling patient: Coding Level of Care Code 65259 SUB INP/OBS CARE 2/35MIN Diagnoses Cellulitis of left leg L03.116 Type 2 diabetes mellitus with complications E11.8 Asthma J45.909 Hypertension I10
[2024-09-21] MEDS: ADVANCED PROBIOTIC 625 MG CAPSULE PO SCH (15:59)
[2024-09-22 12:11] VITALS: RESP 20
--- NOTE | 2024-09-22 12:17 | Discharge Summary ---
Discharge Summary Date of Service September 22, 2024 Principal Dx & Hospital Course #1 = Principal Diagnosis (1) Cellulitis of left leg: Presented with worsening LLE pain, swelling, redness x 1 day. [facility], but was recommended to come to ED for venous doppler - On admission, LLE with generalized erythema, tenderness, edema and warmth, with localized areas of infection, similar to that seen with MRSA - MRSA swab nasally was negative, but does not rule out infection lower extremity - Venous Doppler negative for DVT - Blood cultures negative x 48 hours - Continue tramadol 50 mg Q4H PRN for breakthrough pain - Continue Daptomycin IV and Zosyn IV - Started probiotic while on antibiotics - Discharged on Bactrim BID until 09/26 for total of 7 day antibiotic regimen (2) Type 2 diabetes mellitus with complications: Glucose 187 on admission Hold Jardiance while hospitalized Change Toujeo insulin 120 units at bedtime to glargine 80 units SQ at bedtime while hospitalized Placed on Accu-Cheks with NovoLog SSI Hemoglobin A1c 7.4% -- adjust as indicated with PCP (3) Asthma: Patient does report an intermittent productive cough, states this is baseline for him and no other acute respiratory symptoms Continue home regimen Sputum culture showed moderate normal kerry (4) Hypertension: BPs somewhat elevated here initially Losartan resumed; BPs normalized Plan CODE STATUS: Full code Notes For Next Care Provider Presented with LLE cellulitis, with appearance similar to MRSA. Treated with dapto/zosyn while inpatient and discharged on Bactrim Hgb A1c 7.4% -- adjust outpatient diabetic regimen as indicated Admission HPI Per Admitting Provider The patient is a 64-year-old male with a past medical history including hyperlipidemia, metabolic syndrome, first-degree AV block, hypertension, diabetes mellitus type 2 on long-term insulin, obstructive sleep apnea, diabetic peripheral neuropathy, GERD, and asthma. He presents to the emergency department due to worsening left lower extremity swelling, redness, warmth and pain that began yesterday, and worsened throughout the day today. Discharge Exam General: No acute distress, nondiaphoretic, well-developed, well-nourished. Skin: The skin was without rashes, erythema, edema, or bruising. Cardiac: Regular rate and rhythm without murmurs gallops or rubs. Pulm: Clear to auscultation bilaterally without wheezes, rales or rhonchi. No respiratory distress. 98% on room air. Abdominal: Soft, nontender, distended secondary to body habitus. Bowel sounds present. Neuro: A&O x3. No focal neurological deficits. LLE: Circumferential beefy red erythema reduced from previously marked borders, much improved. 1+ pitting edema. Multiple small oval and circular areas of scarring. Sensation intact to light touch. No drainage or weeping noted. Warmth and swelling improved. Discharge Plan Discharge Items Patient Disposition: Home - Self-Care Reason For Visit: ADMISSION Discharge Diagnosis: Left lower leg cellulitis Condition on Discharge: Good Activity: Resume your previous activity Non-emergency contact: Primary Care Provider Call non-emergency contact if: you have any medication questions, your symptoms worsen and you have a fever Follow-up/Referrals: Rakesh Lowery MD [Primary Care Provider] - 10/01/24 11:00 am (Follow-up in 1-2 weeks) Diet: Carb Consistent or DM2 and Heart Healthy Addtl Attending Provider Instructions: Mr. Ahumada, Elier were admitted to the hospital due to a cellulitis infection of your left lower leg. Cellulitis is an infection of the skin/soft tissues caused by bacteria. Bacteria can enter the body through broken skin; this can happen with a cut, scratch, or insect bite. You have been treated in the hospital with IV antibiotics, and will be discharged with oral antibiotics to continue taking at home. This has been sent to your [facility] on [facility]. Upon discharge from the hospital: * Take Bactrim (oral antibiotic) twice daily until 09/26/24 for total of 7 day antibiotic course. Take this antibiotic as directed until it is gone. Take it even if you feel better. It treats the infection and prevents it from returning. Not taking all of the medicine can make future infections harder to treat. * Take Tramadol 1 tablet every 4 hours NEEDED for breakthrough pain. * You can take an iqbd-yal-ymzcdis (OTC) probiotic as needed for loose stools while on antibiotics. * Continue your home medications as prescribed. * Follow-up with your PCP in 1-2 weeks. Please return to the hospital if you experience any of the following: Fever of 100.5 F or higher, trouble or pain with moving the joints above or below the infected area, discharge or pus draining from the infected area, pain that gets worse in or around the infected area, redness that gets worse and around the infected area, shaking chills, worsened swelling of the infected area, persistent vomiting, lightheadedness, dizziness, passing out, shortness of breath, difficulty breathing, or chest pain. It was a pleasure taking care of you while you were in the hospital, Yolanda Finnegan PA-C Pending Studies at Discharge: No Stand-Alone Forms: My [facility], Smoking Cessation Medications and DC Order Prescriptions: New tramadol 50 mg Tablet 50 mg PO Q4H PRN (Reason: pain) Qty: 20 0RF sulfamethoxazole-trimethoprim [Bactrim DS] 800-160 mg tablet 1 tab PO BID Qty: 9 0RF Continued gemfibrozil 600 mg tablet 600 mg PO BID Qty: 180 3RF (DME) OneTouch Verio test strips Strip See Rx Instructions .Route Qty: 500 3RF Rx Instructions: test 5 times daily E11.9 losartan 100 mg tablet 100 mg PO HS Qty: 90 3RF (DME) pen needle, diabetic [BD Ultra-Fine Mini Pen Needle] 31 gauge x 3/16" needle See Rx Instructions .ROUTE .MEDSUPPLY Qty: 1200 3RF Rx Instructions: use for 4 insulin shot a day Toujeo SoloStar U-300 Insulin 300 unit/mL (1.5 mL) insulin pen 120 unit SUBCUT HS Qty: 36 3RF montelukast [Singulair] 10 mg tablet 10 mg PO HS Qty: 90 3RF furosemide [Lasix] 40 mg tablet 40 mg PO DAILY PRN (Reason: edema) Qty: 90 1RF potassium chloride 20 mEq tablet,ER particles/crystals 40 meq PO DAILY PRN (Reason: with FUROSEMIDE ) Qty: 180 1RF aspirin 81 mg Tablet,Delayed Release (Dr/Ec) 81 mg PO HS magnesium oxide 500 mg Tablet 500 mg PO HS ibuprofen [Advil] 200 mg Tablet 800 mg PO Q6H PRN (Reason: Pain) insulin lispro [Humalog KwikPen Insulin] 100 unit/mL insulin pen 0 unit SUBCUT TID Rx Instructions: 40 units in morning, 30-40 units for lunch, 50 unit whith evening meal Jardiance 25 mg tablet 25 mg PO HS Rx Instructions: Take one tablet by mouth once daily. cholecalciferol (vitamin D3) [Vitamin D3] 50 mcg (2,000 unit) Tablet 50 mcg PO HS Discharge Orders: Discharge Order (Routine); Ordered 09/22/24 Ordered By: Yolanda Finnegan Admission Data Admit Date/Time: 09/20/24 10:54 Attending Provider: Meño Sutherland Admit Provider: Memo Menchaca Primary Care Provider: Rakesh Lowery V. Other Providers: Memo Menchaca Other Interventions: Discharge Summary Assessment (RN) Last Done: 09/22/24 12:58 Hospital Stay Data Consultations 09/18/24 19:08 ED Decision to Admit Stat Diagnostic Imagining Performed 09/18/24 16:19 US leg [US venous doppler LE LT] Stat Pending Results Patient Have Any Pending Studies at Discharge: No Discharge Instructions Given to Patient (Per Discharging Provider) Mr. Ahumada, Elier were admitted to the hospital due to a cellulitis infection of your left lower leg. Cellulitis is an infection of the skin/soft tissues caused by bacteria. Bacteria can enter the body through broken skin; this can happen with a cut, scratch, or insect bite. You have been treated in the hospital with IV antibiotics, and will be discharged with oral antibiotics to continue taking at home. This has been sent to your [facility] on [facility]. Upon discharge from the hospital: * Take Bactrim (oral antibiotic) twice daily until 09/26/24 for total of 7 day antibiotic course. Take this antibiotic as directed until it is gone. Take it even if you feel better. It treats the infection and prevents it from returning. Not taking all of the medicine can make future infections harder to treat. * Take Tramadol 1 tablet every 4 hours NEEDED for breakthrough pain. * You can take an etkp-ccg-ypnqylp (OTC) probiotic as needed for loose stools while on antibiotics. * Continue your home medications as prescribed. * Follow-up with your PCP in 1-2 weeks. Please return to the hospital if you experience any of the following: Fever of 100.5 F or higher, trouble or pain with moving the joints above or below the infected area, discharge or pus draining from the infected area, pain that gets worse in or around the infected area, redness that gets worse and around the infected area, shaking chills, worsened swelling of the infected area, persistent vomiting, lightheadedness, dizziness, passing out, shortness of breath, difficulty breathing, or chest pain. It was a pleasure taking care of you while you were in the hospital, Yolanda Finnegan PA-C Total Time Total Time Spent Total Time Spent (In Minutes): Greater than 30 minutes spent completing this discharge process including direct patient care, medication reconciliation, documentation, review of labs and images, and coordination of care. Coding Level of Care Code 30211 INP/OBS DISCH >30 MIN Diagnoses Cellulitis of left leg L03.116 Type 2 diabetes mellitus with complications E11.8 Asthma J45.909 Hypertension I10
[2024-09-22 20:01] VITALS: BP 181/81; PULSE 70; TEMP 97.9; O2SAT 96
== END 2024-09-22 20:50 | disposition home or self-care (01) | DRG 603 ==
LOC: ED 16:09 → 2N 20:01 → SUATTDRO 20:01 → INTOOBSV 20:01 → 2N 22:04 → SUATTDRO 09-20 10:54

== ENCOUNTER 2025-08-30 00:58 | Inpatient (IN) ==
[2025-08-30 01:05] LABS: Alanine Aminotransferase 24.0 U/L (7-52); Albumin Globulin Ratio 1.6 (0.9-2); Albumin Level 4.2 gm/dl (3.4-5.0); Alkaline Phosphatase 64.0 U/L (34-104); Anion Gap 9.0 (3-11); Bilirubin,Total 0.5 mg/dl (0.2-1.0); Blood Urea Nitrogen 16.0 mg/dl (6-23); Calcium 9.1 mg/dl (8.6-10.3); Carbon Dioxide 26.0 mmol/L (21-32); Chloride 104.0 mmol/L (98-107); Creatinine Clr Calc Pharmacy 101.8 ml/min; Globulin 2.7 gm/dl (2.5-4.0); Glucose 222.0 mg/dl (70-99(Fasting)); Potassium 3.9 mmol/L (3.5-5.1); Sodium 139.0 mmol/L (136-145); Total Protein 6.9 gm/dl (6.0-8.3)
[2025-08-30 01:26] LABS: INR 1.0 (0.9-1.1); Partial Thromboplastin Time 26 Seconds (21-31); Prothrombin Time 10.5 Seconds (9.0-12.0)
[2025-08-30 01:49] LABS: Hematocrit (blood only) 40.1 % (42.0-52.0); Hemoglobin 14.2 g/dl (14.0-18.0); Immature Granulocytes # (auto) 0.02 K/uL (0.01-0.20); Immature Granulocytes % (auto) 0.4 %; Mean Corpuscular Hemoglobin 29.2 pg (25.0-34.0); Mean Corpuscular Volume 82.5 fL (80.0-100.0); Platelet Count 154 K/uL (130-400); RDW Standard Deviation 42.5 fL (36.4-46.3); Red Blood Count 4.86 M/uL (4.70-6.10); White Blood Count 5.64 K/ul (4.8-10.8)
--- NOTE | 2025-08-30 02:27 | Emergency Department Note ---
Impression & Plan Elevated troponin, CHF (congestive heart failure) admit to the [facility] ED Provider Note NAME: FRANKI LINDA AGE: 65 SEX: Male INFORMANT: Patient ED PROVIDER(S): Tereza King DO CHIEF COMPLAINT: 20 pound weight gain PLAN: Disposition: admit to the [facility] MEDICAL DECISION MAKING: This is a 65-year-old male patient who presents to the emergency department after gaining 20 pounds in the past week noting he had significant blood pressure elevation tonight. Patient states he is not been able to move his bowels and his blood sugar was greater than 200. Patient notes that he gets short of breath with even light activity. Patient describes increased cough over the past month. Patient did take Lasix for the past 2 days with some urinary output. Patient has pitting edema in his legs and rales on physical exam. BNP is elevated at 161. Patient's troponin is elevated tonight at 59.5. EKG shows T wave inversions in lead I and aVL which are new finding. I am concerned the patient is suffering from congestive heart failure and an NSTEMI. I have discussed the patient with the [facility] Hospitalist and they will evaluate the patient for further inpatient care Care/management discussed with: painting manager [facility] Triage Nursing notes: reviewed and agree with them. Vital Signs: reviewed and remarkable for hypertension Additional History obtained from: patient's is at the bedside Differential Diagnosis: CHF, constipation, bowel obstruction, cardiac ischemia, cardiac arrhythmia Diagnostics, independently interpreted by me: ECG: normal sinus rhythm at a rate of 66 with first-degree AV block and PACs. There are T wave inversions in lead I and aVL Cardiac Monitoring: normal sinus rhythm at a rate of 63. Imaging studies: Obstruction series:no evidence of bowel obstruction or free air. No significant pulmonary edema as per my independent interpretation. HPI: 65 year old Male arrives for evaluation of Constipation and 20 pound weight gain. patient describes gaining 20 pounds in the last week and feeling constipated. and has taken Lasix for the past 2 days with some increase in urination. He has been drinking apple cider and ate sauerkraut in an effort to promote stooling with no significant success. he has noted increasing shortness of breath and a cough over the past month. he does note that his blood sugar has been elevated as well. PAST MEDICAL HISTORY: See Below, PAST SURGICAL HISTORY: See Below, SOCIAL HISTORY: See Below, HOME MEDICATIONS: See list ALLERGIES: see list VITALS: See Below PHYSICAL EXAMINATION: HEENT: Head - normocephalic and atraumatic. Pupils are equal, round, and reactive to light. Extraocular eye muscles are intact, and sclera are anicteric. Nose - moist nasal mucosa without discharge. Mouth - moist buccal mucosa. Oropharynx is nonerythematous and there is no tonsillar exudate or edema noted. Neck: Supple; no JVD, nuchal rigidity, cervical lymphadenopathy, or auscultated bruits. Heart: Heart sounds are distant secondary to body habitus. Regular rate and rhythm. There is a normal S1 and S2 with no murmurs, clicks, or gallops appreciated. Lungs: Lung sounds are distant secondary to body habitus. Faint rales heard at both bases. Abdomen: Soft, moderately distended with normal bowel sounds. There are no palpable pulsatile masses or hepatosplenomegaly. There is no guarding, rigidity, or rebound noted. Extremities:2+ pitting edema in both lower extremities. Mild peripheral vascular changes There are easily palpable peripheral pulses. Skin: warm and dry with good turgor and no rashes. Emergency department course: The patient was evaluated in room B-7. A complete history and physical was performed. An order was placed for continuous cardiac monitoring. The patient was in a normal sinus rhythm at a rate of 63. A twelve-lead EKG was obtained as described above. a portable chest x-ray was performed. I reviewed the results of the labs and x-ray with the patient and his . I discussed the case with the [facility] Hospitalist and they will evaluate for further inpatient care. Past Med/Surg History Problem List (Updated 08/30/25 @ 15:03 by Tereza King DO) CHF (congestive heart failure) (Acute) NSTEMI (non-ST elevated myocardial infarction) CHF exacerbation Elevated troponin (Acute) Diabetic nephropathy associated with type 2 diabetes mellitus Refusal of statin medication by patient Anemia Metabolic syndrome Microalbuminuria 1st degree AV block Lump of skin of left lower extremity EKG abnormalities Neurodermatitis Low back pain Encounter for health maintenance examination Type 2 diabetes mellitus with complications (Chronic) Vitamin D insufficiency (Chronic) Type 2 diabetes mellitus, with long-term current use of insulin (Chronic) Sleep apnea (Chronic) CPAP HS Obesity, morbid, BMI 40.0-49.9 (Chronic) Not immune to hepatitis B virus (Chronic) Hypothyroidism (Chronic) Hypertension (Chronic ~07/2021) Dyslipidemia (Chronic) Diabetic peripheral neuropathy associated with type 2 diabetes mellitus (Chronic) Claustrophobia (Chronic) GERD (gastroesophageal reflux disease) (Chronic) Asthma (Chronic) Medical History (Updated 08/30/25 @ 15:03 by Tereza King DO) Cellulitis of left leg Hyperglycemia Elevated procalcitonin Diastolic heart failure Uncontrolled hypertension Left knee pain Left leg pain Edema Muscle stiffness SOB (shortness of breath) History of right inguinal hernia CHF (congestive heart failure) Left upper lobe pneumonia Chest pain Breathlessness Diabetes mellitus type 2, controlled Dysesthesia Asthmatic bronchitis Pancreatitis Diabetes Surgical History Numbness and tingling in right hand HX-POST OP WITH HERNIA SURGERY 04/2018 AT [facility] [place] DIAGNOSED A RESULT PRESSURE ON NERVE TO HAND INTRAOP PER PT-FULL SENSATION HAS RETURNED History of tonsillectomy History of colonoscopy History of esophagogastroduodenoscopy (EGD) S/P tooth extraction S/P hernia repair Status post laparoscopic cholecystectomy Family History Grandmother Cardiac disorder Mother Stroke Father Diabetes Cancer Prostate cancer Denies family history of Ovarian cancer Myocardial infarction Breast cancer Colorectal cancer Social History Smoking Status: Never smoker Second Hand Exposure: No; Do You Dip or Chew Tobacco: No; Hx Alcohol Use: Yes Alcohol type: hard liquor Hx Substance Use: No Preferred Language: Romanian Communication Ability: Effective Visual Impairment: No Limitations Hearing Ability: Normal Assisted Living Assistant Required: No Beliefs That Will Affect Care: None marital status: Current Living Situation: Spouse Current Living Situation Comment: with current occupational status: retired Feels Safe at Home: Yes Safety Concerns: Feels Safe At This Time Childhood Exposure to Second-Hand Smoke: No Dental Care, Regularly: Yes Physical Activity Frequency: 1-2 Times per Week Seatbelt Use: always Sunscreen Use: No Assistive Devices: Glasses Allergies Allergies Allergy/AdvReac Type Severity Reaction Status Date / Time mold Allergy Unknown ALLERGY Verified 08/30/25 03:10 SYMPTOMS hydrochlorothiazide AdvReac Severe Hyperglycem Verified 08/30/25 03:10 ia lisinopril AdvReac Cough Verified 08/30/25 03:10 Home Meds Home Medications Medication Instructions Recorded Confirmed aspirin 81 mg tablet,delayed 81 mg PO HS 02/22/19 08/30/25 release magnesium oxide 500 mg PO HS 06/13/21 08/30/25 ibuprofen 200 mg tablet (Advil) 800 mg PO Q6H PRN Pain 03/31/22 08/30/25 cholecalciferol (vitamin D3) 50 50 mcg PO HS 09/18/24 08/30/25 mcg (2,000 unit) tablet (Vitamin D3) Previous Rx's Medication Instructions Recorded gemfibrozil 600 mg tablet 600 mg PO BID #180 tabs 09/13/23 blood sugar diagnostic (OneTouch #500 ea 11/02/23 Verio test strips) montelukast 10 mg tablet 10 mg PO HS #90 tabs 09/03/24 (Singulair) budesonide-formoterol HFA 80 2 puff inhalation BID PRN cough 12/23/24 mcg-4.5 mcg/actuation aerosol #10.2 grams inhaler (Symbicort) losartan 100 mg tablet 100 mg PO HS #90 tabs 02/02/25 empagliflozin 25 mg tablet 25 mg PO HS #90 tabs 03/10/25 (Jardiance) furosemide 40 mg tablet (Lasix) 40 mg PO DAILY PRN edema #90 tabs 03/23/25 mupirocin 2 % topical ointment 1 applic topical TID #22 grams 04/28/25 insulin glargine U-300 conc 300 120 unit (0.4 mL) subcut HS #36 mL 05/21/25 unit/mL (1.5 mL) subcutaneous pen (Toujeo SoloStar U-300 Insulin) insulin lispro 100 unit/mL 120 unit (1.2 mL) subcut DAILY 90 05/21/25 subcutaneous pen (Humalog KwikPen days #105 mL (U-100) Insulin) pen needle, diabetic 31 gauge x #1,200 ea 06/23/2501/11" blood-glucose sensor (Dexcom G7 #9 ea 08/24/25 Sensor device) Results & Data (ED) Vital Signs Vital Signs - 24 hr 08/30/25 01:01 EDT 08/30/25 01:16 EDT 08/30/25 01:14 EST Temperature 36.8 C Temperature Source Oral Pulse Rate 69 73 Pulse Rate [Apical] 63 Pulse Rhythm [Apical] Regular Pulse Strength [Apical] Normal Respiratory Rate 18 21 Respiratory Effort / Characteristics Non-Labored Spontaneous Non-Labored Respiratory Depth Normal Normal Respiratory Pattern Regular Blood Pressure 211/90 H Blood Pressure [Right Arm] 181/93 H Blood Pressure Mean 130 Blood Pressure Mean [Right Arm] 122 Blood Pressure Position [Right Arm] Lying Pulse Oximetry 98 97 Oxygen Delivery Method Room Air Room Air Sepsis Recent Fever Within 48 Hours No Sepsis New/Unexplained Change in Mental Status N/A Sepsis Action Taken by Nursing No Action Required 08/30/25 02:42 Temperature Temperature Source Pulse Rate Pulse Rate [Apical] 64 Pulse Rhythm [Apical] Regular Pulse Strength [Apical] Normal Respiratory Rate 19 Respiratory Effort / Characteristics Non-Labored Respiratory Depth Normal Respiratory Pattern Regular Blood Pressure Blood Pressure [Right Arm] 167/101 H Blood Pressure Mean Blood Pressure Mean [Right Arm] 123 Blood Pressure Position [Right Arm] Lying Pulse Oximetry 96 Oxygen Delivery Method Room Air Sepsis Recent Fever Within 48 Hours Sepsis New/Unexplained Change in Mental Status Sepsis Action Taken by Nursing Laboratory Data 08/30/25 01:30 EST 08/30/25 10:55 Lab Results 08/30/25 08/30/25 Range/Units 00:30 01:30 EST WBC 5.64 (4.8-10.8) K/ul RBC 4.86 (4.70-6.10) M/uL Hgb 14.2 (14.0-18.0) g/dl Hct 40.1 L (42.0-52.0) % MCV 82.5 (80.0-100.0) fL MCH 29.2 (25.0-34.0) pg MCHC 35.4 (32.0-36.0) g/dL RDW Std Deviation 42.5 (36.4-46.3) fL RDW Coeff of James 14.4 (11.5-14.5) % Plt Count 154 (130-400) K/uL MPV 9.8 (9.4-12.4) fL Immature Gran % (Auto) 0.4 % Neut % (Auto) 68.8 % Lymph % (Auto) 18.3 % Trigg % (Auto) 8.5 % Eos % (Auto) 3.5 % Baso % (Auto) 0.5 % Neut # (Auto) 3.88 (1.40-6.50) K/uL Lymph # (Auto) 1.03 L (1.20-3.40) K/uL Trigg # (Auto) 0.48 (0.11-0.59) K/uL Eos # (Auto) 0.20 (0.00-0.50) K/uL Baso # (Auto) 0.03 (0.00-0.20) K/uL Immature Gran # (Auto) 0.02 (0.01-0.20) K/uL PT 10.5 (9.0-12.0) Seconds INR 1.0 (0.9-1.1) APTT 26 (21-31) Seconds PTT Ratio 1.0 Sodium 139 (136-145) mmol/L Potassium 3.9 (3.5-5.1) mmol/L Chloride 104 (98-107) mmol/L Carbon Dioxide 26 (21-32) mmol/L Anion Gap 9 (3-11) BUN 16 (6-23) mg/dl Creatinine 1.09 (0.6-1.4) mg/dl Est Cr Clr Drug Dosing 101.8 ml/min eGFR 74.39 BUN/Creatinine Ratio 14.7 (10-20) Glucose 222 H (70-99(Fasting)) mg/dl Calcium 9.1 (8.6-10.3) mg/dl Magnesium 1.9 (1.7-2.4) mg/dl Total Bilirubin 0.5 (0.2-1.0) mg/dl AST 19 (13-39) U/L ALT 24 (7-52) U/L Alkaline Phosphatase 64 (34-104) U/L Troponin I High Sens 59.5 H* (0-20) pg/ml B-Natriuretic Peptide 161 H (0-100) pg/ml Total Protein 6.9 (6.0-8.3) gm/dl Albumin 4.2 (3.4-5.0) gm/dl Globulin 2.7 (2.5-4.0) gm/dl Albumin/Globulin Ratio 1.6 (0.9-2) Administered Medications Furosemide (Furosemide 40 Mg/4 Ml Vial) 40 mg IV QAM CHARLY Stop: 09/29/25 08:59 Last Admin: 08/30/25 08:36 Dose: 40 mg Documented By: OGisele Gemfibrozil (Gemfibrozil 600 Mg Tab) 600 mg PO BID CHARLY Stop: 09/29/25 08:59 Last Admin: 08/30/25 08:36 Dose: 600 mg Documented By: STEVEN Heparin Sodium (Porcine) (Heparin Sod 5,000 Unit/0.5 Ml Vial) 7,500 units SQ Q12 CHARLY Stop: 09/29/25 08:59 Last Admin: 08/30/25 08:45 Dose: 7,500 units Documented By: STEVEN Insulin Aspart (Insulin Aspart Per Unit Charge) 0 units SC ACHS [facility] Stop: 09/29/25 07:29 Last Admin: 08/30/25 12:16 Dose: 12 units Documented By: ELISHA Co-signed By: STEVEN Admin: 08/30/25 08:45 Dose: 11 units Documented By: STEVEN Co-signed By: ELISHA Insulin Glargine (Lantus Per Unit Charge) 40 units SC DAILY CHARLY Stop: 09/29/25 08:59 Last Admin: 08/30/25 08:46 Dose: 40 units Documented By: STEVEN Co-signed By: ELISHA Magnesium Oxide (Magnesium Oxide 400 Mg Tab) 400 mg PO BID CHARLY Stop: 09/29/25 08:59 Last Admin: 08/30/25 08:36 Dose: 400 mg Documented By: STEVEN Miscellaneous (Symbicort--Order Awaiting Action) 1 each N/A QS [facility]; Protocol Stop: 09/29/25 07:59 Last Admin: 08/30/25 08:36 Dose: Not Given Documented By: OGisele Potassium Chloride (Potassium Chloride Crtab 20 Meq Tabcr) 20 meq PO BID CHARLY Stop: 09/29/25 08:59 Last Admin: 08/30/25 08:35 Dose: 20 meq Documented By: OGisele Discontinued Medications Aspirin (Aspirin 81 Mg Chew) 324 mg PO NOW STA Stop: 08/30/25 02:59 Last Admin: 08/30/25 04:06 Dose: 324 mg Documented By: FadumoT Furosemide (Furosemide 40 Mg/4 Ml Vial) 40 mg IV ONE ONE Stop: 08/30/25 02:48 Last Admin: 08/30/25 02:58 Dose: 40 mg Documented By: dulce mariar Potassium Chloride (Potassium Chloride Crtab 20 Meq Tabcr) 40 meq PO NOW STA Stop: 08/30/25 02:49 Last Admin: 08/30/25 02:57 Dose: 40 meq Documented By: dulce mariar Imaging Data Radiologist's Impression: Chest/Abdomen X-ray 08/30/25 01:06 EST EXAM: XR abdomen 2V w PA chest CLINICAL HISTORY: eval for constipation and fluid overload TECHNIQUE: Radiograph of the chest and abdomen was acquired. COMPARISON: None. FINDINGS: Chest: The lungs are clear and well expanded with no pulmonary infiltrate or pleural effusion. The cardiomediastinal silhouette is within normal limits. No acute osseous abnormality is identified. Abdomen: Surgical brandon are seen in the right upper quadrant. The hepatic shadow appears enlarged. A non-obstructive, non-specific bowel gas pattern is present. No significant air-fluid levels are seen. There is no evidence of air under the diaphragm. No obvious radio-opacity overlies the kidneys, ureters, or urinary bladder. Bony shadows appear unremarkable. IMPRESSION: 1. No acute abdominal abnormality. 2. Hepatomegaly. Electronically signed by Larry Bird 08-30-2025 03:13 AM Discharge Plan Visit Data Chief Complaint: Hypertension Stated Complaint: HYPERTENSION ED Provider: Tereza King Discharge Problem: Elevated troponin, CHF (congestive heart failure) Patient Disposition: Admitted As Inpatient Condition: Serious Discharge Instructions Interventions: ED Discharge Assessment Last Done: 08/30/25 04:43
[2025-08-30] MEDS: POTASSIUM CHLORIDE CRTAB 20 MEQ TABCR PO STA (02:57)
[2025-08-30] MEDS: FUROSEMIDE 40 MG/4 ML VIAL IV ONE (02:58)
--- NOTE | 2025-08-30 03:06 | History & Physical Report ---
Date of Service August 30, 2025 Assessment & Plan (1) CHF exacerbation: (2) NSTEMI (non-ST elevated myocardial infarction): (3) Type 2 diabetes mellitus, with long-term current use of insulin: (4) Sleep apnea: Plan The patient is a 65-year-old male with a past medical history including diabetic nephropathy, diabetes mellitus type 2, metabolic syndrome, first-degree AV block, vitamin D insufficiency, obstructive sleep apnea on CPAP, morbid obesity, hypothyroidism, hypertension, dyslipidemia, diabetic peripheral neuropathy, GERD, and asthma. Who presents to the emergency department with worsening shortness of breath and dyspnea on exertion over the past few weeks, and has g ained 20 pounds in the past week. He reports taking furosemide each of the last 2 evenings, with some increased urination, but has not had a change in weight. He denies any recent travels or sick exposures. He has been admitted to the hospital for pneumonia in the past. He was admitted last year in August for a left lower extremity cellulitis, which has not recurred. His left lower extremity is chronically enlarged, and had a venous Doppler performed of the left lower extremity during admission last here 09/18/2024 which was negative. CHF exacerbation/NSTEMI/hypertension- The patient will be admitted to telemetry for serial cardiac enzymes, serial EKG's, cardiac rhythm monitoring and a 2-D echocardiogram with Dopplers. Initial troponin 59.5 with follow-up 59.8 Give aspirin chewable 324 mg now, and then 81 mg every morning Give furosemide 40 mg IV while in the ED and Klor-Con 40 mEq p.o. while in ED. Furosemide 40 mg IV every morning Klor-Con 20 mill equivalents p.o. twice daily Mag oxide 200 mg p.o. twice daily Continue losartan CBC with differential, renal function panel and magnesium level every morning starting 08/31 BMP and magnesium level on 08/30 at 11 AM EKG shows normal sinus rhythm at 66, first-degree heart block, PACs, and old anterior VT Consult cardiology Continuing empagliflozin/Jardiance for both diabetes and heart failure He should avoid use of ibuprofen in the future, as a potential stimulus for fluid retention and heart failure Diabetes mellitus- Continuing empagliflozin as noted Glargine U300 120 units subcu at bedtime Pharmacy glycemic consult Check hemoglobin A1c in the a.m. Hyperlipidemia- Continue gemfibrozil Check a fasting lipid panel in the a.m. Patient reportedly is intolerant of statins ISHAAN- Patient will use his own CPAP, which he has with him this evening Asthma- Continue Symbicort DuoNebs every 2 hours as needed DVT prophylaxis- Heparin subcu History of left lower extremity cellulitis- Required admission from 09/18-09/22/2024 He reported having sloughing of his skin afterwards, but no recurrence since that time History of Present Illness Chief Complaint: The patient presents to the emergency department with complaint of progressively worsening shortness of breath and dyspnea on exertion over the past few weeks, and is concerned about a 20 pound weight gain that occurred over the past week. He has a furosemide prescription that he takes as needed, has taken dosages the last 2 evenings. He reports he is urinating a lot at this point in the ED. He denies any recent travels or sick exposures. Primary Care Provider: Rakesh Lowery MD The patient is a 65-year-old male with a past medical history including diabetic nephropathy, diabetes mellitus type 2, metabolic syndrome, first-degree AV block, vitamin D insufficiency, obstructive sleep apnea on CPAP, morbid obesity, hypothyroidism, hypertension, dyslipidemia, diabetic peripheral neuropathy, GERD, and asthma. Who presents to the emergency department with worsening shortness of breath and dyspnea on exertion over the past few weeks, and has gained 20 pounds in the past week. He reports taking furosemide each of the last 2 evenings, with some increased urination, but has not had a change in weight. He denies any recent travels or sick exposures. He has been admitted to the hospital for pneumonia in the past. He was admitted last year in August for a left lower extremity cellulitis, which has not recurred. His left lower extremity is chronically enlarged, and had a venous Doppler performed of the left lower extremity during admission last here 09/18/2024 which was negative. Allergies Allergy/AdvReac Type Severity Reaction Status Date / Time mold Allergy Unknown ALLERGY Verified 08/30/25 03:10 SYMPTOMS hydrochlorothiazide AdvReac Severe Hyperglycem Verified 08/30/25 03:10 ia lisinopril AdvReac Cough Verified 08/30/25 03:10 Home Medications Medication Instructions Recorded Confirmed Type aspirin 81 mg tablet,delayed 81 mg PO HS 02/22/19 08/30/25 History release magnesium oxide 500 mg PO HS 06/13/21 08/30/25 History ibuprofen 200 mg tablet (Advil) 800 mg PO Q6H PRN Pain 03/31/22 08/30/25 History gemfibrozil 600 mg tablet 600 mg PO BID #180 tabs 09/13/23 08/30/25 Rx blood sugar diagnostic (OneTouch #500 ea 11/02/23 08/30/25 Rx Verio test strips) montelukast 10 mg tablet 10 mg PO HS #90 tabs 09/03/24 08/30/25 Rx (Singulair) cholecalciferol (vitamin D3) 50 50 mcg PO HS 09/18/24 08/30/25 History mcg (2,000 unit) tablet (Vitamin D3) budesonide-formoterol HFA 80 2 puff inhalation BID PRN cough 12/23/24 08/30/25 Rx mcg-4.5 mcg/actuation aerosol #10.2 grams inhaler (Symbicort) losartan 100 mg tablet 100 mg PO HS #90 tabs 02/02/25 08/30/25 Rx empagliflozin 25 mg tablet 25 mg PO HS #90 tabs 03/10/25 08/30/25 Rx (Jardiance) furosemide 40 mg tablet (Lasix) 40 mg PO DAILY PRN edema #90 tabs 03/23/25 08/30/25 Rx mupirocin 2 % topical ointment 1 applic topical TID #22 grams 04/28/25 08/30/25 Rx insulin glargine U-300 conc 300 120 unit (0.4 mL) subcut HS #36 mL 05/21/25 08/30/25 Rx unit/mL (1.5 mL) subcutaneous pen (Toujeo SoloStar U-300 Insulin) insulin lispro 100 unit/mL 120 unit (1.2 mL) subcut DAILY 90 05/21/25 08/30/25 Rx subcutaneous pen (Humalog #105 mL (U-100) Insulin) pen needle, diabetic 31 gauge x #1,200 ea 06/23/25 08/30/25 Rx 3/16" blood-glucose sensor (Dexcom G7 #9 ea 08/24/25 08/30/25 Rx Sensor device) Past Med/Surg History Problem List (Updated 08/30/25 @ 04:29 by Memo Menchaca MD) NSTEMI (non-ST elevated myocardial infarction) CHF exacerbation Elevated troponin (Acute) Diabetic nephropathy associated with type 2 diabetes mellitus Refusal of statin medication by patient Anemia Metabolic syndrome Microalbuminuria 1st degree AV block Lump of skin of left lower extremity EKG abnormalities Neurodermatitis Low back pain Encounter for health maintenance examination Type 2 diabetes mellitus with complications (Chronic) Vitamin D insufficiency (Chronic) Type 2 diabetes mellitus, with long-term current use of insulin (Chronic) Sleep apnea (Chronic) CPAP HS Obesity, morbid, BMI 40.0-49.9 (Chronic) Not immune to hepatitis B virus (Chronic) Hypothyroidism (Chronic) Hypertension (Chronic ~07/2021) Dyslipidemia (Chronic) Diabetic peripheral neuropathy associated with type 2 diabetes mellitus (Chronic) Claustrophobia (Chronic) GERD (gastroesophageal reflux disease) (Chronic) Asthma (Chronic) Medical History (Updated 08/30/25 @ 04:29 by Memo Menchaca MD) Cellulitis of left leg Hyperglycemia Elevated procalcitonin Diastolic heart failure Uncontrolled hypertension Left knee pain Left leg pain Edema Muscle stiffness SOB (shortness of breath) History of right inguinal hernia CHF (congestive heart failure) Left upper lobe pneumonia Chest pain Breathlessness Diabetes mellitus type 2, controlled Dysesthesia Asthmatic bronchitis Pancreatitis Diabetes Surgical History Numbness and tingling in right hand HX-POST OP WITH HERNIA SURGERY 04/[address] [facility] [place] DIAGNOSED A RESULT PRESSURE ON NERVE TO HAND INTRAOP PER PT-FULL SENSATION HAS RETURNED History of tonsillectomy History of colonoscopy History of esophagogastroduodenoscopy (EGD) S/P tooth extraction S/P hernia repair Status post laparoscopic cholecystectomy Family History Grandmother Cardiac disorder Mother Stroke Father Diabetes Cancer Prostate cancer Denies family history of Ovarian cancer Myocardial infarction Breast cancer Colorectal cancer Social History Smoking Status: Never smoker Second Hand Exposure: No; Do You Dip or Chew Tobacco: No; Hx Alcohol Use: Yes Alcohol type: hard liquor Hx Substance Use: No Preferred Language: Nigerian Communication Ability: Effective Visual Impairment: No Limitations Hearing Ability: Normal Ore Feeder Required: No Beliefs That Will Affect Care: None marital status: Current Living Situation: Spouse Current Living Situation Comment: with current occupational status: retired Feels Safe at Home: Yes Childhood Exposure to Second-Hand Smoke: No Dental Care, Regularly: Yes Physical Activity Frequency: 1-2 Times per Week Seatbelt Use: always Sunscreen Use: No Assistive Devices: CPAP and Glasses Review of Systems Review of Systems: The patient denies chest pain, palpitations, sore throat, fevers, chills, sweats, nausea, vomiting, diarrhea , constipation, abdominal pain, pelvic pain, blood in urine or stool, dysuria, urinary frequency or urgency, lightheadedness, dizziness, headache, memory loss, loss of consciousness, rash, abnormal bruising or bleeding, imbalance, focal weakness, numbness or tingling in arms or legs, back or neck pain, or night sweats. The review of systems is otherwise negative other than for that already noted above, and at least 10 systems have been reviewed. Physical Exam Physical Exam: The patient is awake, alert and oriented 3, well developed and well nourished, normocephalic and atraumatic, lying in bed and in no acute distress. HEENT--PERRL, EOMI, mucous membranes and oropharynx normal Neck--supple. No JVD. No bruits. Thyroid normal, trachea midline, no adenopathy. Heart--normal S1 and S2. No murmurs, rubs or gallops. Lungs--decreased breath sounds throughout. No respiratory distress, no accessory muscle use. Abdomen--normal bowel sounds and soft. Nontender. Nondistended. Obese Extremities--right lower extremity with 2+ pretibial pitting edema. Left lower extremity with 1+ pretibial pitting edema. With similar larger circumference on left compared to right as last year. There are good distal pulses b/l. Dermatologic--chronic venous stasis changes, left greater than right Neurologic--cranial nerves II through XII grossly intact. Rheumatologic--normal range of motion. Psychiatric--normal affect. Results & Data Results & Data Vital Signs (Past 12 Hours) Vital Signs Temp Pulse Pulse Resp BP BP Pulse Ox 08/30/25 02:42 64 19 167/101 H 96 08/30/25 01:14 EST 63 21 181/93 H 97 08/30/25 01:16 EDT 73 08/30/25 01:01 EDT 36.8 C 69 18 211/90 H 98 O2 Del Method 08/30/25 02:42 Room Air 08/30/25 01:14 EST Room Air 08/30/25 01:16 EDT 08/30/25 01:01 EDT Room Air Laboratory Results Laboratory Results WBC 5.64 K/ul (4.8-10.8) 08/30/25 01:30 EST RBC 4.86 M/uL (4.70-6.10) 08/30/25 01:30 EST Hgb 14.2 g/dl (14.0-18.0) 08/30/25 01:30 EST Hct 40.1 % (42.0-52.0) L 08/30/25 01:30 EST MCV 82.5 fL (80.0-100.0) 08/30/25 01:30 EST MCH 29.2 pg (25.0-34.0) 08/30/25 01:30 EST MCHC 35.4 g/dL (32.0-36.0) 08/30/25 01:30 EST RDW Std Deviation 42.5 fL (36.4-46.3) 08/30/25 01:30 EST RDW Coeff of James 14.4 % (11.5-14.5) 08/30/25 01:30 EST Plt Count 154 K/uL (130-400) 08/30/25 01:30 EST MPV 9.8 fL (9.4-12.4) 08/30/25 01:30 EST Immature Gran % (Auto) 0.4 % 08/30/25 01:30 EST Neut % (Auto) 68.8 % 08/30/25 01:30 EST Lymph % (Auto) 18.3 % 08/30/25 01:30 EST [place] % (Auto) 8.5 % 08/30/25 01:30 EST Eos % (Auto) 3.5 % 08/30/25 01:30 EST Baso % (Auto) 0.5 % 08/30/25 01:30 EST Neut # (Auto) 3.88 K/uL (1.40-6.50) 08/30/25 01:30 EST Lymph # (Auto) 1.03 K/uL (1.20-3.40) L 08/30/25 01:30 EST [place] # (Auto) 0.48 K/uL (0.11-0.59) 08/30/25 01:30 EST Eos # (Auto) 0.20 K/uL (0.00-0.50) 08/30/25 01:30 EST Baso # (Auto) 0.03 K/uL (0.00-0.20) 08/30/25 01:30 EST Immature Gran # (Auto) 0.02 K/uL (0.01-0.20) 08/30/25 01:30 EST PT 10.5 Seconds (9.0-12.0) 08/30/25 01:30 EST INR 1.0 (0.9-1.1) 08/30/25 01:30 EST APTT 26 Seconds (21-31) 08/30/25 01:30 EST PTT Ratio 1.0 08/30/25 01:30 EST Sodium 139 mmol/L (136-145) 08/30/25 01:30 EST Potassium 3.9 mmol/L (3.5-5.1) 08/30/25 01:30 EST Chloride 104 mmol/L (98-107) 08/30/25 01:30 EST Carbon Dioxide 26 mmol/L (21-32) 08/30/25 01:30 EST Anion Gap 9 (3-11) 08/30/25 01:30 EST BUN 16 mg/dl (6-23) 08/30/25 01:30 EST Creatinine 1.09 mg/dl (0.6-1.4) 08/30/25 01:30 EST Est Cr Clr Drug Dosing 101.8 ml/min 08/30/25 01:30 EST eGFR 74.39 08/30/25 01:30 EST BUN/Creatinine Ratio 14.7 (10-20) 08/30/25 01:30 EST Glucose 222 mg/dl (70-99(Fasting)) H 08/30/25 01:30 EST POC Glucose 155 mg/dl (70-99) H 08/30/25 04:08 Calcium 9.1 mg/dl (8.6-10.3) 08/30/25 01:30 EST Magnesium 1.9 mg/dl (1.7-2.4) 08/30/25 01:30 EST Total Bilirubin 0.5 mg/dl (0.2-1.0) 08/30/25 01:30 EST AST 19 U/L (13-39) 08/30/25 01:30 EST ALT 24 U/L (7-52) 08/30/25 01:30 EST Alkaline Phosphatase 64 U/L (34-104) 08/30/25 01:30 EST Troponin I High Sens 59.8 pg/ml (0-20) H* 08/30/25 03:25 B-Natriuretic Peptide 161 pg/ml (0-100) H 08/30/25 00:30 Total Protein 6.9 gm/dl (6.0-8.3) 08/30/25 01:30 EST Albumin 4.2 gm/dl (3.4-5.0) 08/30/25 01:30 EST Globulin 2.7 gm/dl (2.5-4.0) 08/30/25 01:30 EST Albumin/Globulin Ratio 1.6 (0.9-2) 08/30/25 01:30 EST Impressions Chest/Abdomen X-ray 08/30/25 01:06 EST EXAM: XR abdomen 2V w PA chest CLINICAL HISTORY: eval for constipation and fluid overload TECHNIQUE: Radiograph of the chest and abdomen was acquired. COMPARISON: None. FINDINGS: Chest: The lungs are clear and well expanded with no pulmonary infiltrate or pleural effusion. The cardiomediastinal silhouette is within normal limits. No acute osseous abnormality is identified. Abdomen: Surgical brandon are seen in the right upper quadrant. The hepatic shadow appears enlarged. A non-obstructive, non-specific bowel gas pattern is present. No significant air-fluid levels are seen. There is no evidence of air under the diaphragm. No obvious radio-opacity overlies the kidneys, ureters, or urinary bladder. Bony shadows appear unremarkable. IMPRESSION: 1. No acute abdominal abnormality. 2. Hepatomegaly. Electronically signed by Larry Bird 08-30-2025 03:13 AM Code Status & VTE Plan Code Status Full code VTE Prophylaxis Plan VTE Prophylaxis will be ordered: Yes PG Care Time/CCT Total # of Minutes Spent Total Time Spent with Patient: Total time spent is greater than 50% in coordination of care (as documented) at patient's floor/unit and/or counseling patient: Coding Level of Care Code 14304 INT INP/OBS CARE Diagnoses CHF exacerbation I50.9 NSTEMI (non-ST elevated myocardial infarction) I21.4 Type 2 diabetes mellitus with microalbuminuria, with long-term current use of insulin E11.29; R80.9; Z79.4 Diabetes mellitus complication status: with kidney complications Diabetes mellitus complication detail: with microalbuminuria Sleep apnea G47.30 (3) Type 2 diabetes mellitus, with long-term current use of insulin Diabetes mellitus complication status: with kidney complications Diabetes mellitus complication detail: with microalbuminuria Qualified Code(s): E11.29 - Type 2 diabetes mellitus with other diabetic kidney complication; R80.9 - Proteinuria, unspecified; Z79.4 - MCFP (current) use of insulin
--- NOTE | 2025-08-30 03:14 | XRay Report ---
EXAM: XR abdomen 2V w PA chest CLINICAL HISTORY: eval for constipation and fluid overload TECHNIQUE: Radiograph of the chest and abdomen was acquired. COMPARISON: None. FINDINGS: Chest: The lungs are clear and well expanded with no pulmonary infiltrate or pleural effusion. The cardiomediastinal silhouette is within normal limits. No acute osseous abnormality is identified. Abdomen: Surgical brandon are seen in the right upper quadrant. The hepatic shadow appears enlarged. A non-obstructive, non-specific bowel gas pattern is present. No significant air-fluid levels are seen. There is no evidence of air under the diaphragm. No obvious radio-opacity overlies the kidneys, ureters, or urinary bladder. Bony shadows appear unremarkable. IMPRESSION: 1. No acute abdominal abnormality. 2. Hepatomegaly. Electronically signed by Larry Bird 08-30-2025 03:13 AM
[2025-08-30 03:25] LABS: Magnesium 1.9 mg/dl (1.7-2.4)
[2025-08-30] MEDS: ASPIRIN 81 MG CHEW PO STA (04:06)
[2025-08-30] MEDS ORDERED: PHARMACY GLYCEMIC MGMT CONSULT PRN (04:35)
[2025-08-30] MEDS ORDERED: ALBUT/IPRATROP 3MG/0.5MG NEB 3 ML VIAL NEB PRN (04:40)
[2025-08-30] MEDS ORDERED: DEXTROSE 50% 50 ML SYRINGE IV PRN (05:01)
[2025-08-30] MEDS ORDERED: GLUCAGON FOR INJ 1 MG VIAL SQ PRN (05:01)
[2025-08-30] MEDS ORDERED: GLUCOSE 10 TAB/TUBE PO PRN (05:01)
[2025-08-30] MEDS ORDERED: GLUCOSE 40% GEL 15 GM TUBE PO PRN (05:01)
[2025-08-30] MEDS ORDERED: ACETAMINOPHEN 325 MG TAB PO PRN (05:01)
[2025-08-30] MEDS ORDERED: CARBOHYDRATES FOR HYPOGLYCEMIA PO PRN (05:01)
[2025-08-30] MEDS: POTASSIUM CHLORIDE CRTAB 20 MEQ TABCR PO SCH (08:35)
[2025-08-30] MEDS: FUROSEMIDE 40 MG/4 ML VIAL IV SCH ×2 (08:36→18:08)
[2025-08-30] MEDS: MAGNESIUM OXIDE 400 MG TAB PO SCH (08:36)
[2025-08-30] MEDS: HEPARIN SOD 5,000 UNIT/0.5 ML VIAL SQ SCH (08:45)
[2025-08-30] MEDS: INSULIN ASPART PER UNIT CHARGE SC SCH (08:45)
[2025-08-30] MEDS: LANTUS PER UNIT CHARGE SC SCH ×2 (08:46→20:40)
--- NOTE | 2025-08-30 09:26 | XCELERA ---
[id number] \\[id number]
--- NOTE | 2025-08-30 09:27 | Cardiology Consultation ---
Date of Consultation August 30, 2025 Assessment & Plan (1) Acute heart failure with preserved ejection fraction: (2) Elevated troponin: (3) 1st degree AV block: (4) Hypertension: Plan ASSESSMENT/PLAN: 1. Acute heart failure with preserved EF: Difficult exam to pharmacy ancillary volume status. Likely NYHA class II/III but overall denied significant dyspnea. Continue diuresis. Increase furosemide to twice daily dosing. Tried to diurese 1 to 2 L net negative fluid balance today. We discussed the importance of a low-sodium diet, less than 2000 mg daily. He agrees that this may be challenging for him but was agreeable to try. Daily weights at home. Strict I's and O's while here with daily weights. Heart failure program on discharge. Continue SGLT2 inhibitor. 2. Hypertension: Blood pressure has been elevated, but improved throughout the day today compared to presentation. Continue diuresis which may further improve blood pressure. Continue ARB. Further antihypertensive adjustment as necessary if remains hypertensive with diuresis. 3. Elevated troponin: He did not present with acute coronary syndrome. Troponin elevation likely due to demand ischemia in the setting of heart failure. Recommend diuresis and if has symptoms concerning for ischemic heart disease, can undergo ischemic evaluation in the outpatient setting. 4. First-degree AV block: Chronic. Avoid AV denice blocking agents as per initial EP evaluation on 04/07/2022. 5. Sleep apnea: Continue CPAP. 6. Disposition: Cardiology will continue to follow. I have asked Dr. Russell to round tomorrow as he will be coming on the service tomorrow. Patient care communicated with Dr. Marrero of the primary hospitalist service. Heart failure program on discharge. Thank you for allowing me to participate in the care of your patient. Please call for any other questions or concerns. Sincerely, Catrachito Vences M.D. History of Present Illness Reason for Consultation: "CHF, NSTEMI" Requesting Physician: Dr. Menchaca Attending Physician: Tomer Marrero History of Present Illness Mr. Ahumada is a very pleasant 65-year-old gentleman with a history significant for hypertension, dyslipidemia, type 2 diabetes, sleep apnea on CPAP. He was admitted on 08/30/2025 after approximately 20 pound weight gain in 1 week. He admits that he eats "too much" sodium. He adds sodium to his food. He and his prepare most of their food and avoid processed food for the most part but he enjoys adding salt to his food. He admits that reducing his sodium will be a challenge. He has Lasix available as needed and takes it approximately twice per month. He took it 2 days prior to hospitalization. He could not tell if he had edema. He admits that he has "heartburn" symptoms but associates it with eating certain foods. He denies exertional chest pain. He has had a cough, mostly nonproductive intermittently for the past week. He denies any significant shortness of breath. He is collecting his urine output and admits that he had approximately 1 L out in the ER that was not counted. He denies melena, hematuria, but has a small amount of bright red blood per rectum if he strains or is constipated. Although asthma is listed as a medical history, he has not had any recent issues with asthma. He would like to lose weight and is considering GLP-1 when he meets with his endocrinology team. Review of systems: As above. Family history: Grandmother had CHF in her 80s. Social history: Denies tobacco or drug abuse. Approximately 1 alcoholic beverage daily. Lives at home with his . Has 2 children. 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 He was unaccompanied. Allergies Allergy/AdvReac Type Severity Reaction Status Date / Time mold Allergy Unknown ALLERGY Verified 08/30/25 03:10 SYMPTOMS hydrochlorothiazide AdvReac Severe Hyperglycem Verified 08/30/25 03:10 ia lisinopril AdvReac Cough Verified 08/30/25 03:10 Home Medications Medication Instructions Recorded Confirmed Type aspirin 81 mg tablet,delayed 81 mg PO HS 02/22/19 08/30/25 History release magnesium oxide 500 mg PO HS 06/13/21 08/30/25 History ibuprofen 200 mg tablet (Advil) 800 mg PO Q6H PRN Pain 03/31/22 08/30/25 History gemfibrozil 600 mg tablet 600 mg PO BID #180 tabs 09/13/23 08/30/25 Rx blood sugar diagnostic (OneTouch #500 ea 11/02/23 08/30/25 Rx Verio test strips) montelukast 10 mg tablet 10 mg PO HS #90 tabs 09/03/24 08/30/25 Rx (Singulair) cholecalciferol (vitamin D3) 50 50 mcg PO HS 09/18/24 08/30/25 History mcg (2,000 unit) tablet (Vitamin D3) budesonide-formoterol HFA 80 2 puff inhalation BID PRN cough 12/23/24 08/30/25 Rx mcg-4.5 mcg/actuation aerosol #10.2 grams inhaler (Symbicort) losartan 100 mg tablet 100 mg PO HS #90 tabs 02/02/25 08/30/25 Rx empagliflozin 25 mg tablet 25 mg PO HS #90 tabs 03/10/25 08/30/25 Rx (Jardiance) furosemide 40 mg tablet (Lasix) 40 mg PO DAILY PRN edema #90 tabs 03/23/25 08/30/25 Rx mupirocin 2 % topical ointment 1 applic topical TID #22 grams 04/28/25 08/30/25 Rx insulin glargine U-300 conc 300 120 unit (0.4 mL) subcut HS #36 mL 05/21/25 08/30/25 Rx unit/mL (1.5 mL) subcutaneous pen (Toujeo SoloStar U-300 Insulin) insulin lispro 100 unit/mL 120 unit (1.2 mL) subcut DAILY 90 05/21/25 08/30/25 Rx subcutaneous pen (Humalog KwikPen days #105 mL (U-100) Insulin) pen needle, diabetic 31 gauge x #1,200 ea 06/23/25 08/30/25 Rx 3/16" blood-glucose sensor (Dexcom G7 #9 ea 08/24/25 08/30/25 Rx Sensor device) Patient History Medical History (Updated 08/30/25 @ 20:30 by Prabhakar Vences MD) Cellulitis of left leg Hyperglycemia Elevated procalcitonin Diastolic heart failure Uncontrolled hypertension Left knee pain Left leg pain Edema Muscle stiffness SOB (shortness of breath) History of right inguinal hernia CHF (congestive heart failure) Left upper lobe pneumonia Chest pain Breathlessness Diabetes mellitus type 2, controlled Dysesthesia Asthmatic bronchitis Pancreatitis Diabetes Surgical History Numbness and tingling in right hand HX-POST OP WITH HERNIA SURGERY 04/2018 AT [facility] – [place] DIAGNOSED A RESULT PRESSURE ON NERVE TO HAND INTRAOP PER PT-FULL SENSATION HAS RETURNED History of tonsillectomy History of colonoscopy History of esophagogastroduodenoscopy (EGD) S/P tooth extraction S/P hernia repair Status post laparoscopic cholecystectomy Family History Grandmother Cardiac disorder Mother Stroke Father Diabetes Cancer Prostate cancer Denies family history of Ovarian cancer Myocardial infarction Breast cancer Colorectal cancer Social History Smoking Status: Never smoker Second Hand Exposure: No; Do You Dip or Chew Tobacco: No; Hx Alcohol Use: Yes Alcohol type: hard liquor Hx Substance Use: No Preferred Language: Estonian Communication Ability: Effective Visual Impairment: No Limitations Hearing Ability: Normal Director Volunteer Services Required: No Beliefs That Will Affect Care: None marital status: Current Living Situation: Spouse Current Living Situation Comment: with current occupational status: retired Feels Safe at Home: Yes Safety Concerns: Feels Safe At This Time Childhood Exposure to Second-Hand Smoke: No Dental Care, Regularly: Yes Physical Activity Frequency: 1-2 Times per Week Seatbelt Use: always Sunscreen Use: No Assistive Devices: Glasses Physical Exam Physical Exam: Gen.: No acute distress. Alert and oriented. HEENT: Anicteric sclera. Neck: Very thick neck. Cannot assess for JVD. Cardiac: Regular. Normal S1-S2. No murmurs, rubs, or gallops. Pulmonary: Clear to auscultation bilaterally without wheezes, rales, or rhonchi. Abdomen: Obese. Soft, nontender, nondistended, with normoactive bowel sounds. No bruits noted. Extremities: 2+ radial pulses bilaterally. 2+ posterior tibialis pulses bilaterally. Trace bilateral lower extremity edema. No cyanosis. Psychiatric: Affect appears appropriate. Results & Data Vital Signs (Past 12 Hours) Vital Signs Temp Pulse Pulse Resp BP BP Pulse Ox 08/30/25 08:10 36.4 C L 60 17 145/78 H 94 08/30/25 05:40 08/30/25 05:13 73 08/30/25 04:58 36.8 C 68 20 196/109 H 96 08/30/25 04:52 36.8 C 68 20 196/109 H 96 08/30/25 04:10 69 18 146/84 H 100 08/30/25 03:33 66 16 152/95 H 97 08/30/25 02:42 64 19 167/101 H 96 08/30/25 01:14 EST 63 21 181/93 H 97 08/30/25 01:16 EDT 73 08/30/25 01:01 EDT 36.8 C 69 18 211/90 H 98 O2 Del Method 08/30/25 08:10 Room Air 08/30/25 05:40 Room Air 08/30/25 05:13 08/30/25 04:58 Room Air 08/30/25 04:52 Room Air 08/30/25 04:10 Room Air 08/30/25 03:33 Room Air 08/30/25 02:42 Room Air 08/30/25 01:14 EST Room Air 08/30/25 01:16 EDT 08/30/25 01:01 EDT Room Air Intake & Output 08/28/25 08/29/25 08/30/25 08/31/25 07:59 07:59 06:59 06:59 Weight Fluid balance net -1.1 L today, not counting ER urine output per patient report. Laboratory Results Laboratory Results - last 24 hr 08/30/25 08/30/25 08/30/25 00:30 01:30 EST 03:25 WBC 5.64 RBC 4.86 Hgb 14.2 Hct 40.1 L MCV 82.5 MCH 29.2 MCHC 35.4 RDW Std Deviation 42.5 RDW Coeff of James 14.4 Plt Count 154 MPV 9.8 Immature Gran % (Auto) 0.4 Neut % (Auto) 68.8 Lymph % (Auto) 18.3 [place] % (Auto) 8.5 Eos % (Auto) 3.5 Baso % (Auto) 0.5 Neut # (Auto) 3.88 Lymph # (Auto) 1.03 L [place] # (Auto) 0.48 Eos # (Auto) 0.20 Baso # (Auto) 0.03 Immature Gran # (Auto) 0.02 PT 10.5 INR 1.0 APTT 26 PTT Ratio 1.0 Sodium 139 Potassium 3.9 Chloride 104 Carbon Dioxide 26 Anion Gap 9 BUN 16 Creatinine 1.09 Est Cr Clr Drug Dosing 101.8 eGFR 74.39 BUN/Creatinine Ratio 14.7 Glucose 222 H POC Glucose Calcium 9.1 Magnesium 1.9 Total Bilirubin 0.5 AST 19 ALT 24 Alkaline Phosphatase 64 Troponin I High Sens 59.5 H* 59.8 H* B-Natriuretic Peptide 161 H Total Protein 6.9 Albumin 4.2 Globulin 2.7 Albumin/Globulin Ratio 1.6 08/30/25 08/30/25 04:08 07:53 WBC RBC Hgb Hct MCV MCH MCHC RDW Std Deviation RDW Coeff of James Plt Count MPV Immature Gran % (Auto) Neut % (Auto) Lymph % (Auto) [place] % (Auto) Eos % (Auto) Baso % (Auto) Neut # (Auto) Lymph # (Auto) [place] # (Auto) Eos # (Auto) Baso # (Auto) Immature Gran # (Auto) PT INR APTT PTT Ratio Sodium Potassium Chloride Carbon Dioxide Anion Gap BUN Creatinine Est Cr Clr Drug Dosing eGFR BUN/Creatinine Ratio Glucose POC Glucose 155 H 142 H Calcium Magnesium Total Bilirubin AST ALT Alkaline Phosphatase Troponin I High Sens B-Natriuretic Peptide Total Protein Albumin Globulin Albumin/Globulin Ratio Diagnostic Findings ECHO 08/30/25: 1. Normal left ventricular size and systolic function. EF 60-65%. No regional wall motion abnormalities. Severe concentric left ventricular hypertrophy. 2. Normal right ventricular size and systolic function. 3. Mild mitral regurgitation. 4. Normal estimated right ventricular systolic pressure. 5. Technically difficult study, enhanced with IV Definity. 6. No significant change from prior study on 04/01/2022. Labs reviewed and notable for elevated high-sensitivity troponin peaking at 59 (flat), stable renal function, normal potassium, normal sodium, mildly elevated BNP, normal magnesium level, normal transaminase levels, normal blood counts. Chest x-ray 08/30/2025: No acute abnormality per radiology. History and physical report reviewed. ECG personally reviewed 08/30/2025: Sinus rhythm first-degree AV block with PACs. 66 bpm. Septal infarct. Possible anterior infarct. Lateral T wave inversion. No significant change from ECG on 03/31/2022. Telemetry personally reviewed: Sinus rhythm with first-degree AV block. Medications Administered Current Inpatient Medications Acetaminophen (Acetaminophen 325 Mg Tab) 650 mg PO Q4H PRN PRN Reason: Pain or Fever Stop: 09/29/25 05:00 Albuterol (Albut/Ipratrop 3mg/0.5mg Neb 3 Ml Vial) 3 ml NEB Q2H PRN; Protocol PRN Reason: dyspnea Stop: 09/29/25 04:39 Aspirin (Aspirin 81 Mg Ectab) 81 mg PO HS CHARLY Stop: 09/29/25 20:59 Dextrose (Dextrose 50% 50 Ml Syringe) 25 - 50 ml IV UD PRN; Protocol PRN Reason: Hypoglycemia Protocol Stop: 09/29/25 05:00 Empagliflozin (Empagliflozin 25 Mg Tab) 25 mg PO HS CHARLY Stop: 09/29/25 20:59 Furosemide (Furosemide 40 Mg/4 Ml Vial) 40 mg IV QAM CHARLY Stop: 09/29/25 08:59 Last Admin: 08/30/25 08:36 Dose: 40 mg Gemfibrozil (Gemfibrozil 600 Mg Tab) 600 mg PO BID CHARLY Stop: 09/29/25 08:59 Last Admin: 08/30/25 08:36 Dose: 600 mg Glucagon (Glucagon For Inj 1 Mg Vial) 1 mg SQ UD PRN; Protocol PRN Reason: Hypoglycemia Protocol Stop: 09/29/25 05:00 Glucose (Glucose 40% Gel 15 Gm Tube) 15 - 30 gm PO UD PRN; Protocol PRN Reason: Hypoglycemia Protocol Stop: 09/29/25 05:00 Glucose (Glucose 10 Tab/Tube) 4 - 8 tab PO UD PRN; Protocol PRN Reason: Hypoglycemia Protocol Stop: 09/29/25 05:00 Heparin Sodium (Porcine) (Heparin Sod 5,000 Unit/0.5 Ml Vial) 7,500 units SQ Q12 CAHRLY Stop: 09/29/25 08:59 Last Admin: 08/30/25 08:45 Dose: 7,500 units Insulin Aspart (Insulin Aspart Per Unit Charge) 0 units SC ACHS CHARLY Stop: 09/29/25 07:29 Last Admin: 08/30/25 08:45 Dose: 11 units Insulin Glargine (Lantus Per Unit Charge) 40 units SC DAILY CHARLY Stop: 09/29/25 08:59 Last Admin: 08/30/25 08:46 Dose: 40 units Losartan Potassium (Losartan Potassium 50 Mg Tab) 100 mg PO HS CHARLY Stop: 09/29/25 20:59 Magnesium Oxide (Magnesium Oxide 400 Mg Tab) 400 mg PO BID CHARLY Stop: 09/29/25 08:59 Last Admin: 08/30/25 08:36 Dose: 400 mg Miscellaneous (Symbicort--Order Awaiting Action) 1 each N/A QS CHARLY; Protocol Stop: 09/29/25 07:59 Last Admin: 08/30/25 08:36 Dose: Not Given Miscellaneous (Carbohydrates For Hypoglycemia ) 15 - 30 gm PO UD PRN PRN Reason: Hypoglycemia Protocol Stop: 09/29/25 05:00 Miscellaneous Information (Pharmacy Glycemic Mgmt Consult) 1 each N/A UD PRN; Protocol PRN Reason: Consult Stop: 09/29/25 04:34 Montelukast Sodium (Montelukast Sodium 10 Mg Tablet) 10 mg PO HS CHARLY Stop: 09/29/25 20:59 Potassium Chloride (Potassium Chloride Crtab 20 Meq Tabcr) 20 meq PO BID CHARLY Stop: 09/29/25 08:59 Last Admin: 08/30/25 08:35 Dose: 20 meq Vitamin D (Cholecalciferol 25 Mcg (1000 Units) Tab) 50 mcg PO HS CHARLY Stop: 09/29/25 20:59 PG Care Time/CCT Total # of Minutes Spent Total Time Spent with Patient: Total time spent is greater than 50% in coordination of care (as documented) at patient's floor/unit and/or counseling patient: Coding Level of Care Code 86336 INT INP/OBS CARE 3/75MIN Diagnoses Acute heart failure with preserved ejection fraction I50.31 Elevated troponin R79.89 1st degree AV block I44.0 Hypertension I10
--- NOTE | 2025-08-30 09:52 | Pharmacy Report ---
Pharmacy Glycemic Short Note 2 - Date of Service August 30, 2025 - Glycemic Short BSG Results (Last 24 hours): 08/30/25 08/30/25 08/30/25 01:30 EST 04:08 07:53 Glucose 222 H POC Glucose 155 H 142 H OUTPATIENT ANTIDIABETIC REGIMEN: * Toujeo 120 units SC HS * Humalog 40 units SC w/ breakfast, 30 units SC w/ lunch, and 50 units SC w/ dinner * Empagliflozin 25 mg PO HS HbA1c: 6.9% (04/22/25), reordered for 08/31/25 ASSESSMENT: * is a 65 year old male who presented to [facility] ED with progressively worsening shortness of breath and 20 lbs of weight gain in one week * Patient with well-controlled T2DM as an outpatient on large doses of SC basal/bolus insulin * Will use prior inpatient glycemic data to guide initial dosing * T2DM diet ordered, cardiology consulted PLAN FOR INPATIENT GLYCEMIC CONTROL: * Empagliflozin 25 mg PO HS * Basal insulin * Lantus 40 units SQ daily * Lantus 0-20-40 units SC HS (see EHR for details) * Bolus insulin * NovoLog per scale ACHS or Q6hrs while NPO * Goal Range: Low 110 mg/dL - High 140 mg/dL * Correction Factor: 15 mg/dL/unit * Nutritional / Prandial insulin per carb ratio of 1 unit per 5 grams CHO consumed
[2025-08-30 11:42] LABS: Anion Gap 9.0 (3-11); Blood Urea Nitrogen 17.0 mg/dl (6-23); Calcium 9.2 mg/dl (8.6-10.3); Carbon Dioxide 28.0 mmol/L (21-32); Chloride 101.0 mmol/L (98-107); Creatinine Clr Calc Pharmacy 114.8 ml/min; Glucose 174.0 mg/dl (70-99(Fasting)); Magnesium 1.8 mg/dl (1.7-2.4); Potassium 3.7 mmol/L (3.5-5.1); Sodium 138.0 mmol/L (136-145)
[2025-08-30] MEDS: ASPIRIN 81 MG ECTAB PO SCH (20:23)
[2025-08-30] MEDS: POLYETHYLENE (MIRALAX) 17 GM PACK PO SCH (20:23)
[2025-08-30] MEDS: EMPAGLIFLOZIN 25 MG TAB PO SCH (20:23)
[2025-08-30] MEDS: LOSARTAN POTASSIUM 50 MG TAB PO SCH (20:23)
[2025-08-30] MEDS: CHOLECALCIFEROL 25 MCG (1000 UNITS) TAB PO SCH (20:23)
[2025-08-30] MEDS: MONTELUKAST SODIUM 10 MG TABLET PO SCH (20:24)
--- NOTE | 2025-08-31 05:43 | Electrocardiogram Report ---
Test Reason : Blood Pressure : */* mmHG Vent. Rate : 66 BPM Atrial Rate : 66 BPM P-R Int : 304 ms QRS Dur : 100 ms QT Int : 416 ms P-R-T Axes : 80 -73 106 degrees QTcB Int : 436 ms Sinus rhythm with 1st degree A-V block with Premature atrial complexes Left axis deviation Incomplete right bundle branch block Anterior infarct (cited on or before 13-Jun-2021) T wave abnormality, consider lateral ischemia Abnormal ECG When compared with ECG of 31-Mar-2022 17:33, Incomplete right bundle branch block is now Present Confirmed by Prabhakar Vences ([id number]) on 08/31/2025 5:43:11 AM Referred By: REFERRED SELF Confirmed By: Prabhakar Vences
[2025-08-31 07:06] LABS: Albumin Level 4.6 gm/dl (3.4-5.0); Anion Gap 8 (3-11); Blood Urea Nitrogen 18 mg/dl (6-23); Calcium 9.4 mg/dl (8.6-10.3); Carbon Dioxide 31 mmol/L (21-32); Chloride 99 mmol/L (98-107); Cholesterol 185 mg/dl (0-200); Creatinine Clr Calc Pharmacy 104.0 ml/min; Glucose 95 mg/dl (70-99(Fasting)); HDL Cholesterol 32 mg/dl; Magnesium 2.2 mg/dl (1.7-2.4); Potassium 3.9 mmol/L (3.5-5.1); Sodium 138 mmol/L (136-145); Triglycerides 411 mg/dl (0-150)
[2025-08-31 07:43] LABS: Hematocrit (blood only) 41.6 % (42.0-52.0); Hemoglobin 14.4 g/dl (14.0-18.0); Immature Granulocytes # (auto) 0.02 K/uL (0.01-0.20); Immature Granulocytes % (auto) 0.4 %; Mean Corpuscular Hemoglobin 28.3 pg (25.0-34.0); Mean Corpuscular Volume 81.7 fL (80.0-100.0); Platelet Count 150 K/uL (130-400); RDW Standard Deviation 41.5 fL (36.4-46.3); Red Blood Count 5.09 M/uL (4.70-6.10); White Blood Count 5.12 K/ul (4.8-10.8)
[2025-08-31] MEDS: LANTUS PER UNIT CHARGE SC SCH ×2 (08:21→20:44)
[2025-08-31 08:37] LABS: Hemoglobin A1C 6.7 % (4.5-5.6)
--- NOTE | 2025-08-31 11:59 | Electrocardiogram Report ---
Test Reason : Blood Pressure : */* mmHG Vent. Rate : 51 BPM Atrial Rate : * BPM P-R Int : * ms QRS Dur : 106 ms QT Int : 466 ms P-R-T Axes : * -81 101 degrees QTcB Int : 429 ms Sinus bradycardia Premature atrial complexes Left axis deviation Minimal voltage criteria for LVH, may be normal variant Septal infarct (cited on or before 13-Jun-2021) Abnormal ECG When compared with ECG of 30-Aug-2025 01:13, Incomplete right bundle branch block is no longer Present Questionable change in initial forces of Anterior leads T wave inversion more evident in Lateral leads Confirmed by Lawrence Russell ([id number]) on 08/31/2025 11:59:00 AM Referred By: REFERRED SELF Confirmed By: Lawrence Russell
--- NOTE | 2025-08-31 13:30 | Pharmacy Report ---
Pharmacy Glycemic Short Note 2 - Date of Service August 31, 2025 - Glycemic Short BSG Results (Last 24 hours): 08/30/25 08/30/25 08/31/25 16:52 20:34 05:42 Glucose 95 POC Glucose 108 H 182 H 08/31/25 08/31/25 08:02 11:47 Glucose POC Glucose 118 H 129 H OUTPATIENT ANTIDIABETIC REGIMEN: * Toujeo 120 units SC HS * Humalog 40 units SC w/ breakfast, 30 units SC w/ lunch, and 50 units SC w/ dinner * Empagliflozin 25 mg PO HS HbA1c: 6.9% (04/22/25), reordered for 08/31/25 ASSESSMENT: 08/31 * Patient received total of 116 units of insulin yesterday, of which 80 units were basal insulin * Fasting BSG 95 mg/dL - will scale back on basal insulin as >50% of insulin needs yesterday and fasting BSG trending down * No change to CF/CR 08/30 * JR is a 65 year old male who presented to [facility] ED with progressively worsening shortness of breath and 20 lbs of weight gain in one week * Patient with well-controlled T2DM as an outpatient on large doses of SC basal/bolus insulin * Will use prior inpatient glycemic data to guide initial dosing * T2DM diet ordered, cardiology consulted PLAN FOR INPATIENT GLYCEMIC CONTROL: * Empagliflozin 25 mg PO HS * Basal insulin * Lantus 20 units SQ this AM * Then 30-40 units bid thereafter (see EHR for details) * Bolus insulin * NovoLog per scale ACHS or Q6hrs while NPO * Goal Range: Low 110 mg/dL - High 140 mg/dL * Correction Factor: 15 mg/dL/unit * Nutritional / Prandial insulin per carb ratio of 1 unit per 5 grams CHO consumed
[2025-08-31 19:40] LABS: Anion Gap 11.0 (3-11); Blood Urea Nitrogen 23.0 mg/dl (6-23); Calcium 9.6 mg/dl (8.6-10.3); Carbon Dioxide 28.0 mmol/L (21-32); Chloride 97.0 mmol/L (98-107); Creatinine Clr Calc Pharmacy 78.4 ml/min; Glucose 180.0 mg/dl (70-99(Fasting)); Potassium 3.6 mmol/L (3.5-5.1); Sodium 136.0 mmol/L (136-145)
--- NOTE | 2025-08-31 23:48 | Hospitalist Progress Note ---
Date of Service August 31, 2025 Assessment & Plan (1) CHF exacerbation: (2) NSTEMI (non-ST elevated myocardial infarction): (3) Type 2 diabetes mellitus, with long-term current use of insulin: (4) Sleep apnea: Plan The patient is a 65-year-old male with a past medical history including diabetic nephropathy, diabetes mellitus type 2, metabolic syndrome, first-degree AV block, vitamin D insufficiency, obstructive sleep apnea on CPAP, morbid obesity, hypothyroidism, hypertension, dyslipidemia, diabetic peripheral neuropathy, GERD, and asthma. Who presents to the emergency department with worsening shortness of breath and dyspnea on exertion over the past few weeks, and has g ained 20 pounds in the past week. He reports taking furosemide each of the last 2 evenings, with some increased urination, but has not had a change in weight. He denies any recent travels or sick exposures. He has been admitted to the hospital for pneumonia in the past. He was admitted last year in August for a left lower extremity cellulitis, which has not recurred. His left lower extremity is chronically enlarged, and had a venous Doppler performed of the left lower extremity during admission last here 09/18/2024 which was negative. CHF exacerbation/NSTEMI/hypertension- The patient will be admitted to telemetry for serial cardiac enzymes, serial EKG's, cardiac rhythm monitoring and a 2-D echocardiogram with Dopplers. Initial troponin 59.5 with follow-up 59.8 Give aspirin chewable 324 mg now, and then 81 mg every morning Give furosemide 40 mg IV while in the ED and Klor-Con 40 mEq p.o. while in ED. Furosemide 40 mg IV every morning Klor-Con 20 mill equivalents p.o. twice daily Mag oxide 200 mg p.o. twice daily Continue losartan CBC with differential, renal function panel and magnesium level every morning starting 3 BMP and magnesium level on 08/30 at 11 AM EKG shows normal sinus rhythm at 66, first-degree heart block, PACs, and old anterior ID Consult cardiology Continuing empagliflozin/Jardiance for both diabetes and heart failure He should avoid use of ibuprofen in the future, as a potential stimulus for fluid retention and heart failure. Patient has been tolerating the lasix BID, will hold after tonights dose and monitor. Creatinine has been stable Diabetes mellitus- Continuing empagliflozin as noted Glargine U300 120 units subcu at bedtime Pharmacy glycemic consult Hyperlipidemia- Continue gemfibrozil Check a fasting lipid panel in the a.m. Patient reportedly is intolerant of statins ISHAAN- Patient will use his own CPAP, which he has with him this evening Asthma- Continue Symbicort DuoNebs every 2 hours as needed DVT prophylaxis- Heparin subcu History of left lower extremity cellulitis- Required admission from 09/18-09/22/2024 He reported having sloughing of his skin afterwards, but no recurrence since that time Admission and Anticipated Discharge Date Admission Date: August 30, 2025 Subjective Patient reports no new symptoms. Patient reports breathing better. Physical Exam Physical Exam: HEENT--PERRL, EOMI, mucous membranes and oropharynx normal Neck--supple. No JVD. No bruits. Thyroid normal, trachea midline, no adenopathy. Heart--normal S1 and S2. No murmurs, rubs or gallops. Lungs--decreased breath sounds throughout. No respiratory distress, no accessory muscle use. Abdomen--normal bowel sounds and soft. Nontender. Nondistended. Obese Extremities--right lower extremity with 2+ pretibial pitting edema. Left lower extremity with 1+ pretibial pitting edema. With similar larger circumference on left compared to right as last year. There are good distal pulses b/l. Neurologic--cranial nerves II through XII grossly intact. Rheumatologic--normal range of motion. Psychiatric--normal affect. Results & Data Results & Data Vital Signs (Past 12 Hours) Vital Signs Temp Pulse Resp BP BP Pulse Ox O2 Del Method 08/31/25 19:37 36.7 C 80 18 138/75 96 Room Air 08/31/25 16:04 36.8 C 68 19 135/80 97 Room Air PG Care Time/CCT Total # of Minutes Spent Total Time Spent with Patient: Total time spent is greater than 50% in coordination of care (as documented) at patient's floor/unit and/or counseling patient: Coding Level of Care Code 01580 SUB INP/OBS CARE 3/50MIN Diagnoses CHF exacerbation I50.9 NSTEMI (non-ST elevated myocardial infarction) I21.4 Type 2 diabetes mellitus with microalbuminuria, with long-term current use of insulin E11.29; R80.9; Z79.4 Diabetes mellitus complication detail: with microalbuminuria Diabetes mellitus complication status: with kidney complications Sleep apnea G47.30 (3) Type 2 diabetes mellitus, with long-term current use of insulin Diabetes mellitus complication detail: with microalbuminuria Diabetes mellitus complication status: with kidney complications Qualified Code(s): E11.29 - Type 2 diabetes mellitus with other diabetic kidney complication; R80.9 - Proteinuria, unspecified; Z79.4 - long-term (current) use of insulin
[2025-09-01 06:08] LABS: Hematocrit (blood only) 48.0 % (42.0-52.0); Hemoglobin 16.3 g/dl (14.0-18.0); Immature Granulocytes # (auto) 0.01 K/uL (0.01-0.20); Immature Granulocytes % (auto) 0.2 %; Mean Corpuscular Hemoglobin 27.8 pg (25.0-34.0); Mean Corpuscular Volume 81.8 fL (80.0-100.0); Platelet Count 178 K/uL (130-400); RDW Standard Deviation 41.4 fL (36.4-46.3); Red Blood Count 5.87 M/uL (4.70-6.10); White Blood Count 6.39 K/ul (4.8-10.8)
[2025-09-01 06:30] LABS: Albumin Level 4.7 gm/dl (3.4-5.0); Anion Gap 10.0 (3-11); Blood Urea Nitrogen 26.0 mg/dl (6-23); Calcium 9.7 mg/dl (8.6-10.3); Carbon Dioxide 29.0 mmol/L (21-32); Chloride 99.0 mmol/L (98-107); Creatinine Clr Calc Pharmacy 86.9 ml/min; Glucose 141.0 mg/dl (70-99(Fasting)); Magnesium 2.7 mg/dl (1.7-2.4); Potassium 3.8 mmol/L (3.5-5.1); Sodium 138.0 mmol/L (136-145)
[2025-09-01 07:18] VITALS: BP 111/69; PULSE 64; RESP 19; TEMP 97.5; O2SAT 96
[2025-09-01] MEDS: FUROSEMIDE 40 MG/4 ML VIAL IV ONE (10:11)
--- NOTE | 2025-09-01 11:08 | Discharge Summary ---
Discharge Summary Date of Service September 01, 2025 Principal Dx & Hospital Course #1 = Principal Diagnosis (1) CHF exacerbation: (2) NSTEMI (non-ST elevated myocardial infarction): (3) Type 2 diabetes mellitus, with long-term current use of insulin: (4) Sleep apnea: Plan The patient is a 65-year-old male with a past medical history including diabetic nephropathy, diabetes mellitus type 2, metabolic syndrome, first-degree AV block, vitamin D insufficiency, obstructive sleep apnea on CPAP, morbid obesity, hypothyroidism, hypertension, dyslipidemia, diabetic peripheral neuropathy, GERD, and asthma. Who presents to the emergency department with worsening shortness of breath and dyspnea on exertion over the past few weeks, and has gained 20 pounds in the past week. He reports taking furosemide each of the last 2 evenings, with some increased urination, but has not had a change in weight. He denies any recent travels or sick exposures. He has been admitted to the hospital for pneumonia in the past. He was admitted last year in August for a left lower extremity cellulitis, which has not recurred. His left lower extremity is chronically enlarged, and had a venous Doppler performed of the left lower extremity during admission last here 09/18/2024 which was negative. CHF exacerbation/demand ischemia/hypertension- NSTEMI ruled out as tropn peaked in the at around 59. Patient was admitted mainly for acute diastolic CHF or HF with preserved ejection fraction. Patient responded to IV lasix with 40 mg BID and had about 8 liters net negative. Patient is back to his baseline. Will discharge him on lasix 40 mg PO Q2d with a quick followup with the HF clinic. Continue losartan Echo: showed no wall motion abnormalities. EKG shows normal sinus rhythm at 66, first-degree heart block, PACs, and old anterior CO Consult cardiology Continuing empagliflozin/Jardiance for both diabetes and heart failure He should avoid use of ibuprofen in the future and monitor his salt intake., as a potential stimulus for fluid retention and heart failure Diabetes mellitus- Continuing empagliflozin as noted Hyperlipidemia- Continue gemfibrozil Patient reportedly is intolerant of statins ISHAAN- Patient will use his own CPAP, which he has with him this evening Asthma- Continue Symbicort DuoNebs every 2 hours as needed DVT prophylaxis- Heparin subcu History of left lower extremity cellulitis- Required admission from 09/18-09/22/2024 He reported having sloughing of his skin afterwards, but no recurrence since that time Admission HPI Per Admitting Provider The patient is a 65-year-old male with a past medical history including diabetic nephropathy, diabetes mellitus type 2, metabolic syndrome, first-degree AV block, vitamin D insufficiency, obstructive sleep apnea on CPAP, morbid obesity, hypothyroidism, hypertension, dyslipidemia, diabetic peripheral neuropathy, GERD, and asthma. Who presents to the emergency department with worsening shortness of breath and dyspnea on exertion over the past few weeks, and has gained 20 pounds in the past week. He reports taking furosemide each of the last 2 evenings, with some increased urination, but has not had a change in weight. He denies any recent travels or sick exposures. He has been admitted to the hospital for pneumonia in the past. He was admitted last year in [facility] for a left lower extremity cellulitis, which has not recurred. His left lower extremity is chronically enlarged, and had a venous Doppler performed of the left lower extremity during admission last here 09/18/2024 which was negative. Discharge Exam HEENT--PERRL, EOMI, mucous membranes and oropharynx normal Neck--supple. No JVD. No bruits. Thyroid normal, trachea midline, no adenopathy. Heart--normal S1 and S2. No murmurs, rubs or gallops. Lungs--clears No respiratory distress, no accessory muscle use. Abdomen--normal bowel sounds and soft. Nontender. Nondistended. Obese Extremities--right lower extremity with 2+ pretibial pitting edema. Left lower extremity with 1+ pretibial pitting edema. With similar larger circumference on left compared to right as last year. There are good distal pulses b/l. Neurologic--cranial nerves II through XII grossly intact. Rheumatologic--normal range of motion. Psychiatric--normal affect. Discharge Plan Discharge Items Patient Disposition: Home - Self-Care Reason For Visit: CHF, NSTEMI Discharge Diagnosis: CHF, NSTEMI Condition on Discharge: Serious Activity: Resume your previous activity Non-emergency contact: Primary Care Provider Call non-emergency contact if: you have any medication questions Follow-up/Referrals: Rakesh Lowery MD [Primary Care Provider] - 09/11/25 10:00 am (Hospital follow up scheduled for September 11, 2025 at 10:00 am) Alisia Willis PA-C [Physician Airport Operations Supervisor] - 09/07/25 10:30 am (Congestive Heart Failure Program Appointment Information Early follow up is essential to managing your heart failure. An appointment has been scheduled for you with the [facility] within 7 days of discharge. Anticipate this visit to be 30-60 minutes long. Please expect a kiln burner helper phone call from one of our nurses approximately 48 hours from discharge. They will also be placing an order for lab work to be completed 1-2 days prior to your heart failure follow up appointment. Please be sure to have this done so we can go over the results when you come in. Office Location The cardiology office building is located in front of the hospital at [address] [place] [address] Bring the following with you to your follow-up doctor appointments: Please bring your daily weight log any discharge paperwork all of your medication bottles with you to this visit. ) Diet: Regular Addtl Attending Provider Instructions: Call your Primary Care doctor if any of the following symptoms or problems start or get worse: * Shortness of breath or difficulty breathing * Wake up at night short of breath * Chest pain * Cough * Swelling of your hands, feet, or legs * More fatigued or tired with your normal activity * Palpitations - sudden fast heart beats WEIGHT * Weigh yourself every morning after using the bathroom. * Use the same scale. * Wear the same amount of clothing. * Write your weight down on a chart. * Call your Primary Care doctor if you gain more than 2-3 pounds in 1-2 days. MEDICATIONS * Use this discharge instruction sheet for medication instructions. * Take your medications at the time your doctor ordered. * Do not skip a dose of your medicines. * If you miss a dose of medicine, take it as soon as possible, but DO NOT DOUBLE A DOSE. * Read your medicine information when you get home. * Know all of the side effects of your medicine. If in doubt, ask your pharmacist * Call your Primary Care doctor's office if you have any side effects. * Be sure all of your doctors know what medicine and herbs you take (including cold, flu, and herbal medicine). Take the following with you to your follow-up doctor appointments: * Weight Chart * Medication List * List of questions Do not drink excessive alcohol, beer or wine. Pending Studies at Discharge: No Stand-Alone Forms: My [facility] [employer], Smoking Cessation Medications and DC Order Prescriptions: New potassium chloride 10 mEq tablet extended release 10 meq PO Q2D Qty: 15 0RF Rx Instructions: On days you take lasix Continued gemfibrozil 600 mg tablet 600 mg PO BID Qty: 180 3RF (DME) OneTouch Verio test strips Strip See Rx Instructions .Route Qty: 500 3RF Rx Instructions: test 5 times daily E11.9 montelukast [Singulair] 10 mg tablet 10 mg PO HS Qty: 90 3RF budesonide-formoterol [Symbicort] 80-4.5 mcg/actuation HFA aerosol inhaler 2 puff inhalation BID PRN (Reason: cough) Qty: 10.2 3RF losartan 100 mg tablet 100 mg PO HS Qty: 90 3RF Jardiance 25 mg tablet 25 mg PO HS Qty: 90 3RF Rx Instructions: Take one tablet by mouth once daily. (DME) pen needle, diabetic 31 gauge x 3/16" needle See Rx Instructions .ROUTE .MEDSUPPLY Qty: 1200 3RF Rx Instructions: use for 4 insulin shot a day (DME) Dexcom G7 Sensor Device See Rx Instructions .ROUTE .MEDSUPPLY Qty: 9 3RF Rx Instructions: change sensor every 10 days mupirocin 2 % ointment 1 applic topical TID Qty: 22 0RF Toujeo SoloStar U-300 Insulin 300 unit/mL (1.5 mL) insulin pen 120 unit SUBCUT HS Qty: 36 3RF insulin lispro [Humalog KwikPen Insulin] 100 unit/mL insulin pen 120 unit SUBCUT DAILY 90 Days Qty: 105 3RF Rx Instructions: 40 units in morning, 30 units for lunch, 50 unit with evening meal aspirin 81 mg Tablet,Delayed Release (Dr/Ec) 81 mg PO HS magnesium oxide 500 mg Tablet 500 mg PO HS cholecalciferol (vitamin D3) [Vitamin D3] 50 mcg (2,000 unit) Tablet 50 mcg PO HS Changed furosemide [Lasix] 40 mg tablet 40 mg PO Q2D Qty: 90 1RF Discontinued ibuprofen [Advil] 200 mg Tablet 800 mg PO Q6H PRN (Reason: Pain) Discharge Orders: Discharge Order- CHF (Routine); Ordered 09/01/25 Ordered By: Tomer Mccormack/Other Patient Handouts: Managing Type 2 Diabetes, Special Foot Care for Diabetes Admission Data Admit Date/Time: 08/30/25 03:06 Attending Provider: Tomer Marrero Admit Provider: Memo Menchaca Primary Care Provider: Rakesh Lowery V. Other Providers: Memo Menchaca; Prabhakar Vences; Alisia Willis Other Interventions: Discharge Summary Assessment (RN) Last Done: 09/01/25 12:39 Hospital Stay Data Consultations 08/30/25 01:59 ED Decision to Admit Stat 08/30/25 05:01 Consult Cardiology Routine 08/30/25 20:31 [facility] CHF Program Referral Routine Pending Results Patient Have Any Pending Studies at Discharge: No Discharge Instructions Given to Patient (Per Discharging Provider) Call your Primary Care doctor if any of the following symptoms or problems start or get worse: * Shortness of breath or difficulty breathing * Wake up at night short of breath * Chest pain * Cough * Swelling of your hands, feet, or legs * More fatigued or tired with your normal activity * Palpitations - sudden fast heart beats WEIGHT * Weigh yourself every morning after using the bathroom. * Use the same scale. * Wear the same amount of clothing. * Write your weight down on a chart. * Call your Primary Care doctor if you gain more than 2-3 pounds in 1-2 days. MEDICATIONS * Use this discharge instruction sheet for medication instructions. * Take your medications at the time your doctor ordered. * Do not skip a dose of your medicines. * If you miss a dose of medicine, take it as soon as possible, but DO NOT DOUBLE A DOSE. * Read your medicine information when you get home. * Know all of the side effects of your medicine. If in doubt, ask your pharmacist * Call your Primary Care doctor's office if you have any side effects. * Be sure all of your doctors know what medicine and herbs you take (including cold, flu, and herbal medicine). Take the following with you to your follow-up doctor appointments: * Weight Chart * Medication List * List of questions Do not drink excessive alcohol, beer or wine. Total Time Total Time Spent Total Time Spent (In Minutes): 35 Spent time examining patient, discussing with specialists, writing discharge instructions, sending scripts of his meds to the pharmacy. Coding Level of Care Code 00564 INP/OBS DISCH >30 MIN Diagnoses CHF exacerbation I50.9 NSTEMI (non-ST elevated myocardial infarction) I21.4 Type 2 diabetes mellitus with microalbuminuria, with long-term current use of insulin E11.29; R80.9; Z79.4 Diabetes mellitus complication detail: with microalbuminuria Diabetes mellitus complication status: with kidney complications Sleep apnea G47.30
--- NOTE | 2025-09-01 12:04 | Electrocardiogram Report ---
Test Reason : Blood Pressure : */* mmHG Vent. Rate : 55 BPM Atrial Rate : 55 BPM P-R Int : 332 ms QRS Dur : 112 ms QT Int : 458 ms P-R-T Axes : 86 -69 118 degrees QTcB Int : 438 ms Sinus bradycardia with 1st degree A-V block with Premature atrial complexes Left axis deviation Minimal voltage criteria for LVH, may be normal variant Septal infarct (cited on or before 13-Jun-2021) T wave abnormality, consider lateral ischemia Abnormal ECG When compared with ECG of 31-Aug-2025 06:23, Sinus rhythm has replaced Atrial fibrillation Confirmed by Lawrence Russell ([id number]) on 09/01/2025 12:04:01 PM Referred By: REFERRED SELF Confirmed By: Lawrence Russell
== END 2025-09-01 12:41 | disposition home or self-care (01) | DRG 291 ==
LOC: SUATTDRO → ED 00:58 → 4W 03:06 → SUATTDRO 03:06 → 4W 04:43